=== PATIENT | male | born 1935 | race Caucasian/White ===

== ENCOUNTER 2024-12-19 13:35 | Inpatient (IN) | payer MEDICARE, OTHER, SELFPAY ==
[2024-12-19] VITALS (23 sets, daily range): BP systolic 99–132; BP diastolic 58–112
--- NOTE | 2024-12-19 09:17 | ED.GENMED ---
History of Present Illness
<Syed Rain Jr., PA-C - Last Filed: 12/19/24 13:12>
General
Chief Complaint: Breathing Problem
Source: patient, ambulance crew and [facility]
Exam Limitations: none
Time Seen by Provider: 12/19/24 08:58
Nursing documentation reviewed up to this point in time: agreed with
History of Present Illness
History of Present Illness:
89-year-old male with past with history of COPD, previous PE not anticoagulated, CHF hypertension pacemaker presenting to the emergency department today with concerns of shortness of breath starting last night also has a cough denies fevers denies
additional symptoms otherwise no chest pain abdominal pain nausea vomiting.
Past History
<Syed Rain Jr., PA-C - Last Filed: 12/19/24 13:12>
Past History
ED Past Medical History: CHF, COPD, HTN and Other (DVT/PE, CAD, heart failure, hypertension, hyperlipidemia)
ED Past Surgical History: Cardiac
Social History
Tobacco: Former smoker
Alcohol: None
Drug: None
Living: fpc
Family History
Family History: Unable to obtain
Review of Systems
<Syed Rain Jr., PA-C - Last Filed: 12/19/24 13:12>
Review of Systems
Allergies reviewed?: Yes
All Other Systems: ROS reviewed and negative except as documented in HPI and ROS
Phy Exam
<YAHIR Antonio Jr. Last Filed: 12/19/24 13:12>
Physical Exam
Physical Exam:
GENERAL: Alert , in no apparent distress
EYE: pupils equal and reactive
NECK: Supple, no significant adenopathy.
ENT: o/p clr, mmm.
CARDIAC: Regular rate and rhythm .
LUNGS: diffuse expiratory wheezing.
ABDOMEN: Soft, without focal tenderness, no r/g, no cvat
NEUROLOGICAL: Alert and oriented, no focal neuro deficits
SKIN: Warm and dry, skin intact.
MUSCULOSKELETAL: No edema, well perfused.
PSYCH: Normal and appropriate interaction.
Scores
<Syed Rain Jr., PA-C - Last Filed: 12/19/24 13:12>
Heart Failure Risk
Heart Failure Risk Score: Not Applicable
Course
<Syed Rain Jr., PA-C - Last Filed: 12/19/24 13:12>
Orders/Labs/Results
Orders:
Orders
12/19/24 08:59
Electrocardiogram (*1) Stat
Reason for Study: Other
Other Reason for Exam: pneumonia
Cardiac Monitoring- Treatment ONCE
EKG- Treatment ONCE
Dexamethasone Sod Phosphate [Decadron] 10 mg IV NOW STA
Ipratropium/Albuterol Sulfate [Duoneb] 3 ml INH R NOW STA
CR Chest Portable - 1 View Urgent
Comment:
Reason For Exam: cough sob
Reason Study Needs to be Portable: Patient Unstable
12/19/24 09:24
CT Chest PE Study Urgent
Comment:
Reason For Exam: SOB, hypoxic
12/19/24 09:26
Complete Blood Count/With Diff Urgent
NT-proBNP Urgent
Troponin I Urgent
12/19/24 09:37
Azithromycin 500 mg/250 ml [Zithromax Infusion] 500 mg in 250 ml IV NOW
CefTRIAXone [Rocephin] 2,000 mg IV NOW STA
12/19/24 09:48
COVID-19 Antigen Urgent
Source: Nasal Swab
Influenza A+B Rapid Molecular Urgent
JELENA Source: Nasal Swab
Specimen Description:
12/19/24 10:27
Comprehensive Metabolic Panel Routine
12/19/24 10:45
Case Management Consult ONCE
Case Management Consult: Other
Requested By:: NURSING
Comment: Per EMS and patient's roomate, pt. has been SOB since last night and could not find a nurse to
inform them. PT. had to suffer all night. Came to the ER today hypoxic, SOB. Was dx with
pneumonia and CHF. Is currently on high flow.
12/19/24 12:07
Heparin 6,900 units IV NOW STA
Nursing to Place Non Medication Order As Directed
Physician Order: PTT 6 hours after initial start of Heparin infusion
12/19/24 12:10
Echo 2D MMode Color/Doppler Urgent
Reason for Study: large PE
PTT Urgent
Comment: Obtain baseline before beginning heparin infusion if not already collected
12/19/24 12:15
Heparin 92737 Units/250 ml 25,000 units in 250 ml IV PER PROTOCOL
Weight to be used for heparin protocol in kilograms (kg):: 86.7
Protocol:: DVT/PE
PTT Goal Range to be used:: PTT 73 to 111 seconds
Order type:: Initial
INITIAL Infusion Dose (UNITS/KG/hr) & then follow protocol:: 18 units/kg/hr
Infusion Dose in UNITS/hr & then follow protocol (UNITS/hr):: 1,600
INFUSION RATE in mL/hr & then follow protocol (mL/hr):: 16
For DVT/PE algorithm, re-bolus for low PTT?: Yes
PTT less than or equal to 64 seconds:: Re-bolus 80 units/kg (max 10,000units). Increase by 300 units/hr
(+ 3mL/hr)
PTT 64.1 to 72.9 seconds:: Re-bolus 40 units/kg (max 5,000 units). Increase by 200 units/hr
(+ 2mL/hr)
PTT 73 to 111 seconds:: Target Range. No change in rate.
PTT 111.1 to 130.9 seconds:: Decrease rate by 200 units/hr (- 2 mL/hr)
PTT 131 to 199.9 seconds:: HOLD for 1 hr. Then decrease by 300 units/hr (- 3mL/hr)
PTT greater than or equal to 200 seconds:: HOLD for 2 hrs & Notify Provider. Then decrease by 300 units/hr
(- 3mL/hr)
Lab follow-up:: Each change, PTT q6h until 2 consecutive are therapeutic. Then
PTT daily.
12/19/24 12:16
Heparin 6,900 units IV PRN PRN
12/19/24 12:17
Heparin 3,500 units IV PRN PRN
Abnormal Lab Results
12/19/24 12/19/24
09:26 10:27
RBC 4.59 L 10^6/uL
(4.70-6.10)
MCHC 32.3 L g/dL
(33.0-37.0)
Abs Immat Gran (auto) 0.1 H 10^3/uL
(0-0.05)
Absolute Neuts (auto) 7.2 H 10^3/uL
(1.4-6.5)
Absolute Lymphs (auto) 0.6 L 10^3/uL
(1.2-3.4)
Absolute Monos (auto) 1.2 H 10^3/uL
(0.1-0.6)
Immature Gran % 0.6 H %
(0-0.5)
Neutrophils % 79.1 H %
(42.2-75.2)
Lymphocytes % 6.5 L %
(20.5-51.1)
Monocytes % 13.0 H %
(1.7-9.3)
Potassium 5.2 H mmol/L
(3.5-5.1)
Carbon Dioxide 19 L mmol/L
(22-30)
BUN 26 H mg/dl
(9-20)
Glucose 127 H mg/dl
(70-99)
Calcium 7.9 L mg/dl
(8.4-10.2)
Troponin I 0.061 H* ng/ml
Total Protein 6.1 L g/dl
(6.3-8.2)
Albumin 3.1 L g/dl
(3.5-5.0)
12/19/24 09:26
12/19/24 10:27
Vital Signs
Initial and Last Documented VS:
Initial Vital Signs
Pulse Resp Pulse Ox
76 24 82
12/19/24 09:02 12/19/24 09:02 12/19/24 09:02
Last Documented Vital Signs
Temp Pulse Resp BP Pulse Ox
98.0 F 86 23 105/58 89
12/19/24 09:17 12/19/24 12:00 12/19/24 12:00 12/19/24 12:00 12/19/24 12:00
<Kemal Reyes, DO - Last Filed: 12/19/24 09:26>
Orders/Labs/Results
Orders:
Orders
12/19/24 08:59
Electrocardiogram (*1) Stat
Reason for Study: Other
Other Reason for Exam: pneumonia
Cardiac Monitoring- Treatment ONCE
EKG- Treatment ONCE
Dexamethasone Sod Phosphate [Decadron] 10 mg IV NOW STA
Ipratropium/Albuterol Sulfate [Duoneb] 3 ml INH R NOW STA
CR Chest Portable - 1 View Urgent
Comment:
Reason For Exam: cough sob
Reason Study Needs to be Portable: Patient Unstable
12/19/24 09:24
CT Chest PE Study Urgent
Comment:
Reason For Exam: SOB, hypoxic
12/19/24 09:26
Complete Blood Count/With Diff Urgent
NT-proBNP Urgent
Troponin I Urgent
12/19/24 09:37
Azithromycin 500 mg/250 ml [Zithromax Infusion] 500 mg in 250 ml IV NOW
CefTRIAXone [Rocephin] 2,000 mg IV NOW STA
12/19/24 09:48
COVID-19 Antigen Urgent
Source: Nasal Swab
Influenza A+B Rapid Molecular Urgent
JELENA Source: Nasal Swab
Specimen Description:
12/19/24 10:27
Comprehensive Metabolic Panel Routine
12/19/24 10:45
Case Management Consult ONCE
Case Management Consult: Other
Requested By:: NURSING
Comment: Per EMS and patient's roomate, pt. has been SOB since last night and could not find a nurse to
inform them. PT. had to suffer all night. Came to the ER today hypoxic, SOB. Was dx with
pneumonia and CHF. Is currently on high flow.
12/19/24 12:07
Heparin 6,900 units IV NOW STA
Nursing to Place Non Medication Order As Directed
Physician Order: PTT 6 hours after initial start of Heparin infusion
12/19/24 12:10
Echo 2D MMode Color/Doppler Urgent
Reason for Study: large PE
PTT Urgent
Comment: Obtain baseline before beginning heparin infusion if not already collected
12/19/24 12:15
Heparin 11380 Units/250 ml 25,000 units in 250 ml IV PER PROTOCOL
Weight to be used for heparin protocol in kilograms (kg):: 86.7
Protocol:: DVT/PE
PTT Goal Range to be used:: PTT 73 to 111 seconds
Order type:: Initial
INITIAL Infusion Dose (UNITS/KG/hr) & then follow protocol:: 18 units/kg/hr
Infusion Dose in UNITS/hr & then follow protocol (UNITS/hr):: 1,600
INFUSION RATE in mL/hr & then follow protocol (mL/hr):: 16
For DVT/PE algorithm, re-bolus for low PTT?: Yes
PTT less than or equal to 64 seconds:: Re-bolus 80 units/kg (max 10,000units). Increase by 300 units/hr
(+ 3mL/hr)
PTT 64.1 to 72.9 seconds:: Re-bolus 40 units/kg (max 5,000 units). Increase by 200 units/hr
(+ 2mL/hr)
PTT 73 to 111 seconds:: Target Range. No change in rate.
PTT 111.1 to 130.9 seconds:: Decrease rate by 200 units/hr (- 2 mL/hr)
PTT 131 to 199.9 seconds:: HOLD for 1 hr. Then decrease by 300 units/hr (- 3mL/hr)
PTT greater than or equal to 200 seconds:: HOLD for 2 hrs & Notify Provider. Then decrease by 300 units/hr
(- 3mL/hr)
Lab follow-up:: Each change, PTT q6h until 2 consecutive are therapeutic. Then
PTT daily.
12/19/24 12:16
Heparin 6,900 units IV PRN PRN
12/19/24 12:17
Heparin 3,500 units IV PRN PRN
Abnormal Lab Results
12/19/24 12/19/24
09:26 10:27
RBC 4.59 L 10^6/uL
(4.70-6.10)
MCHC 32.3 L g/dL
(33.0-37.0)
Abs Immat Gran (auto) 0.1 H 10^3/uL
(0-0.05)
Absolute Neuts (auto) 7.2 H 10^3/uL
(1.4-6.5)
Absolute Lymphs (auto) 0.6 L 10^3/uL
(1.2-3.4)
Absolute Monos (auto) 1.2 H 10^3/uL
(0.1-0.6)
Immature Gran % 0.6 H %
(0-0.5)
Neutrophils % 79.1 H %
(42.2-75.2)
Lymphocytes % 6.5 L %
(20.5-51.1)
Monocytes % 13.0 H %
(1.7-9.3)
Potassium 5.2 H mmol/L
(3.5-5.1)
Carbon Dioxide 19 L mmol/L
(22-30)
BUN 26 H mg/dl
(9-20)
Glucose 127 H mg/dl
(70-99)
Calcium 7.9 L mg/dl
(8.4-10.2)
Troponin I 0.061 H* ng/ml
Total Protein 6.1 L g/dl
(6.3-8.2)
Albumin 3.1 L g/dl
(3.5-5.0)
12/19/24 09:26
12/19/24 10:27
Vital Signs
Initial and Last Documented VS:
Initial Vital Signs
Pulse Resp Pulse Ox
76 24 82
12/19/24 09:02 12/19/24 09:02 12/19/24 09:02
Last Documented Vital Signs
Temp Pulse Resp BP Pulse Ox
98.0 F 86 23 105/58 89
12/19/24 09:17 12/19/24 12:00 12/19/24 12:00 12/19/24 12:00 12/19/24 12:00
<Syed Rain Jr., PA-C - Last Filed: 12/19/24 13:12>
MDM/Problems Addressed
MDM/Problems Addressed:
89-year-old male presenting to the emergency department today with concerns of shortness of breath starting last night. Does have diffuse expiratory wheezing here seems to be consistent with COPD. Initially was hypoxic on arrival but improving
with nonrebreather. Patient's pulse ox dropping to the mid 80s on nonrebreather. He was placed on high flow nasal cannula with improvement to the high 80s. Patient conversational throughout. Other vital signs without emergent findings. KG
without significant change. Troponin mildly elevated to 0.061. BNP elevated 6000. Does have a history of PE not currently anticoagulated. CT PE was ordered. Otherwise x-ray showing possible consolidation possible pneumonia was given antibiotic.
CT PE showing bilateral blood clots. PERT alert was called immediately and discussed with IR and pulmonary. Patient started on heparin and will be admitted to the ICU.
<Kemal Reyes DO - Last Filed: 12/19/24 09:26>
*Critical Care Note
Total Time (30-74mins, 75-104mins- exclusive of procedures): 33 min
comment:
The high probability of a clinically significant, sudden or life threatening deterioration of the cardiopulmonary system(s) required my full and direct attention, intervention and personal management. The aggregate critical care time was 33 minutes.
This time is in addition to time spent performing reported procedures but includes the following:
[x] Data Review and interpretation
[x] Patient assessment and monitoring of vital signs
[x] Documentation
[x] Medication orders and management
ED Attending Note
<Syed Rain Jr., PA-C - Last Filed: 12/19/24 13:12>
-
Portions of this chart may have been created with voice recognition software.� Occasional wrong word or��sound alike� substitutions may have occurred due to the inherent limitations of voice recognition software.
<Kemal Reyes DO - Last Filed: 12/19/24 09:26>
ED Attending Note
Patient seen and examined by attending physician: Yes
I performed the substantive portion of visit, reviewed & personally made and approve the management plan that is documented in note by myself or LEAH.: Yes
ED Attending Note:
I have seen and evaluated the patient with a [id number] encounter. I have spoken to the advance practicer provider and involved in the medical history, the physical exam, medical decision making.
Evaluation and management service: agree unless noted differently below.
Results interpretation: agree unless noted differently below.
Focused HPI: 89-year-old male presenting with shortness of breath. Apparently, the symptoms started yesterday. Patient initially presented hypoxic and was placed on a nonrebreather. Initially, the hypoxia appeared to improve but I was called to
bedside when patient was persistently 80% on a nonrebreather.
Physical exam: Tachypnea, shallow breath sounds. Skin is warm and cap refill intact. Patient has conversational dyspnea. Shallow breath sounds
Medical Decision Making: Patient started on breathing treatments and steroids given his prior history of COPD. Given his significant hypoxia, will obtain CT to rule out PE. Will give trial of BiPAP due to his hypoxia on nonrebreather
Discharge Plan
Departure
Patient Disposition: Admit
Date of Disposition: 12/19/24
Time of Disposition: 12:37
Admit to: ICU
Admit to doctor: Jonny
Presentation/result/management discussed w/ accepting MD/DO: Hospitalist
Patient with high blood pressure during this ER visit?: No
Condition: Critical
Covid-19: Not Applicable
Discharge Problem:
Pulmonary embolism
Prescriptions:
No Action
acetaminophen 325 mg Tablet
650 mg PO Q8HPRN PRN (Reason: mild pain)
atorvastatin 20 mg Tablet
20 mg PO DAILY
isosorbide mononitrate 30 mg Tablet Extended Release 24 Hr
30 mg PO DAILY
amlodipine 2.5 mg Tablet
2.5 mg PO DAILY
metoprolol succinate 25 mg Tablet Extended Release 24 Hr
25 mg PO DAILY
albuterol sulfate [ProAir HFA] 90 mcg/actuation Hfa Aerosol Inhaler
2 puff INHALATION R Q4
Anoro Ellipta 62.5-25 mcg/actuation Blister With Device
1 inh INHALATION R DAILY
gabapentin 100 mg Capsule
200 mg PO TID
melatonin 3 mg Tablet
6 mg PO HS
multivitamin Tablet
1 tab PO DAILY
ipratropium-albuterol 0.5 mg-3 mg(2.5 mg base)/3 mL Solution For Nebulization
3 ml INHALATION R Q6HPRN PRN (Reason: copd)
sertraline 25 mg Tablet
25 mg PO DAILY
ondansetron HCl 4 mg Tablet
4 mg PO Q6H PRN (Reason: NAUSEA )
dicyclomine 20 mg tablet
20 mg PO TID
diclofenac sodium 1 % Gel
2 g TOPICAL BID
omega 7-mzc-vvy-fish oil [Fish Oil] 1,000 mg (120 mg-180 mg) Capsule
1 cap PO DAILY
tramadol 50 mg tablet
50 mg PO BIDPRN PRN (Reason: moderate severe pain)
Referrals:
Frederick Brown MD [Family Provider] -
Interventions
Interventions:
*Risk Screen - Suicide Last Done: 12/19/24 09:17
*General Assessment Last Done: 12/19/24 09:17
*Neglect/Abuse Screening Last Done: 12/19/24 09:17
*ED COVID-19 Vaccine History Last Done: 12/19/24 09:17
ED- Cardiac Assessment Last Done: 12/19/24 09:17
ED- Pulmonary Assessment Last Done: 12/19/24 09:17
Discharge Date and Time
Print Language: TURKISH
[2024-12-19 09:35] LABS: % Basophils 0.6 % (0-2); % Eosinophils 0.2 % (0-6); % Immature Granulocytes 0.6 % (0-0.5); % Lymphocytes 6.5 % (20.5-51.1); % Neutrophils 79.1 % (42.2-75.2); Absolute Basophils 0.1 10^3/uL (0-0.2); Absolute Immature Granulocytes 0.1 10^3/uL (0-0.05); Absolute Lymphocytes 0.6 10^3/uL (1.2-3.4); Absolute Monocytes 1.2 10^3/uL (0.1-0.6); Absolute Neutrophils 7.2 10^3/uL (1.4-6.5); Hematocrit 41.8 % (39.0-52.0); Hemoglobin 13.5 g/dL (13.0-18.0); Mean Corp Hgb Conc. 32.3 g/dL (33.0-37.0); Mean Corpuscular Hgb 29.4 pg (27.0-31.0); Mean Corpuscular Volume 91.1 fL (80.0-94.0); Mean Platelet Volume 10.3 fL (7.4-10.4); Nucleated Red Blood Cells % 0 % (-); Platelet Count 215 10^3/uL (130-400); Red Blood Cell Count 4.59 10^6/uL (4.70-6.10); Red Cell Dist. Width 13.9 % (11.5-14.5); White Blood Cell Count 9.1 10^3/uL (4.8-10.8)
[2024-12-19] MEDS: DECADRON 10 MG IV (09:40)
[2024-12-19] MEDS: ROCEPHIN 2000 MG IV (09:41)
[2024-12-19] MEDS: ZITHROMAX INFUSION 250 IV (09:41)
[2024-12-19] MEDS: DUONEB 3 ML INH ×2 (09:41→19:48)
[2024-12-19 10:02] LABS: NT-proBNP 6480 pg/ml; Troponin I 0.061 ng/ml
[2024-12-19 10:18] LABS: COVID-19 Antigen Negative (Negative)
[2024-12-19 11:14] LABS: ALT (SGPT) 25 U/L (0-50); AST (SGOT) 39 U/L (17-59); Albumin 3.1 g/dl (3.5-5.0); Alkaline Phosphatase 81 U/L (38-126); Blood Urea Nitrogen 26 mg/dl (9-20); Calcium 7.9 mg/dl (8.4-10.2); Carbon Dioxide 19 mmol/L (22-30); Chloride 106 mmol/L (98-107); Glucose 127 mg/dl (70-99); Potassium 5.2 mmol/L (3.5-5.1); Sodium 137 mmol/L (135-145); Total Protein 6.1 g/dl (6.3-8.2); eGFR > 60.00
[2024-12-19] MEDS: HEPARIN 6900 UNITS IV (12:19)
[2024-12-19] MEDS: HEPARIN 25000 UNITS/250 ML IV (12:19)
[2024-12-19 12:43] LABS: APTT 32.9 Sec (23.4-35.0)
--- NOTE | 2024-12-19 12:50 | HPS.HSE ---
Family Physician
-
Family Physician: Frederick Brown
Chief Complaint
-
Shortness of breath x 3 days, productive clear cough, body aches, hypoxia today
History of Present Illness
89-year-old male from senior living who states he has had shortness of breath over the past 3 days including a productive clear cough and some bodyaches. He presented severely hypoxic with O2 sat 81% on room air required high flow O2. He had
history of previous Left lower extremity DVT with bilateral PE 10/05/2022. He had CT PE study today due to hypoxia showing bilateral pulmonary embolism with suspected right heart strain on CT he was placed on IV heparin drip He was COVID and flu
negative while in the ER today. He denies headache, sore throat, chest pain, palpitations, abdominal pain, nausea, vomiting, diarrhea. He does complain of some chronic suprapubic tenderness but history of BPH with urine retention.
He has past medical history of dementia�mild-moderate COPD, chronic hypoxic respiratory failure on chronic 2 to 3 L baseline, aspiration pneumonitis, chronic heart failure preserved EF, HTN, HLD, CAD status post stent, permanent pacemaker,
extensive left lower extremity DVT /Bilateral PE10/05/2022 left greater saphenous vein common femoral vein, superficial femoral vein, popliteal vein, peroneal vein, posterior tibial vein. Nonocclusive in the groin or common femoral vein, occlusive
in the thigh and to the including the calf. Left iliac vein thrombus nonocclusive, indeterminant troponin elevation, dysphagia due to poor dentition, BPH, fatty liver, large hiatal hernia, peripheral neuropathy, anxiety, insomnia
Medical History
Past Medical History
Past Medical History: Reports Other
Additional Past Medical History:
dementia�mild-moderate COPD,
chronic hypoxic respiratory failure on chronic 2 to 3 L baseline, aspiration pneumonitis,
chronic diastolic heart failure preserved EF
HTN
HLD
CAD status post sten
permanent pacemaker
extensive left lower extremity DVT /Bilateral PE 10/05/2022 left greater saphenous vein common femoral vein, superficial femoral vein, popliteal vein, peroneal vein, posterior tibial vein.
Nonocclusive in the groin or common femoral vein, occlusive in the thigh and to the including the calf.
Left iliac vein thrombus nonocclusive, indeterminant troponin elevation, dysphagia due to poor dentition,
BPH
fatty liver
large hiatal hernia
peripheral neuropathy
anxiety
insomnia
Past Surgical History: Reports Other
Additional Past Surgical History:
Permanent pacemaker
caht wwith stents
Social History
Unable to obtain full social history at this time due to: Dementia
Tobacco: Former Smoker
Alcohol: None
Drug: None
Personal: Single
Living: Jail
Employment: Retired
Family History
Family History: Not pertinent
Allergies / Home Medications
Allergies reflects when Allergies were last updated in appbackr.
Home Medications with original date entered in appbackr
Allergy/Medication List:
Allergies
Allergy/AdvReac Type Severity Reaction Status Date / Time
No Known Allergies Allergy Verified 02/09/23 09:11
Home Medications
acetaminophen 325 mg tablet 650 mg PO Q8HPRN PRN mild pain 06/17/22
albuterol sulfate 90 mcg/actuation aerosol inhaler (ProAir HFA) 2 puff inhalation R Q4 Lung/breathing issues 06/17/22
amlodipine 2.5 mg tablet 2.5 mg PO DAILY Blood pressure 06/17/22
atorvastatin 20 mg tablet 20 mg PO DAILY High cholesterol 06/17/22
gabapentin 100 mg capsule 200 mg PO TID Pain 06/17/22
isosorbide mononitrate 30 mg tablet,extended release 24 hr 30 mg PO DAILY Heart disease/condition 06/17/22
metoprolol succinate 25 mg tablet,extended release 24 hr 25 mg PO DAILY Blood pressure 06/17/22
umeclidinium 62.5 mcg-vilanterol 25 mcg/actuation powdr for inhalation (Anoro Ellipta) 1 inh inhalation R DAILY Lung/breathing issues 06/17/22
melatonin 3 mg tablet 6 mg PO HS Sleep 07/22/22
ipratropium 0.5 mg-albuterol 3 mg (2.5 mg base)/3 mL nebulization soln 3 ml inhalation R Q6HPRN PRN copd 10/05/22
multivitamin 1 tab PO DAILY Supplement 10/05/22
sertraline 25 mg tablet 25 mg PO DAILY 10/05/22
diclofenac sodium 1 % topical gel 2 g topical BID LEFT KNEE, RIGHT SHOULDER 02/09/23
dicyclomine 20 mg tablet 20 mg PO TID Muscle spasms 02/09/23
omega 2-mjw-pxe-fish oil 1,000 mg (120 mg-180 mg) capsule (Fish Oil) 1 cap PO DAILY Supplement 02/09/23
ondansetron HCl 4 mg tablet 4 mg PO Q6H PRN NAUSEA 02/09/23
tramadol 50 mg tablet 50 mg PO BIDPRN PRN moderate severe pain 12/19/24
Review of Systems
-
History Source: Patient, Jail and Physician
A 12 point ROS was completed and negative except as noted: Yes
Constitutional: Denies Fever or Chills
EENT: Denies Runny Nose
Respiratory: Reports Cough, Trouble Breathing and Other (hypoxia)
Cardiac: Denies Chest Pain, Diaphoresis, Palpitations or Syncope
Abdomen/GI: Denies Abdominal Pain, Nausea, Vomiting, Diarrhea, Constipated, Bloody Stools or Black Stools
: Denies Dysuria, Frequency, Flank Pain, Incontinence, Difficulty Voiding or Urgency
Musculoskeletal: Denies Joint Pain or Edema
Skin: Denies Itching or Rash
Neurological: Denies Dizzy, Headache or Weakness
Endocrine: Reports No Symptoms
Psych: Reports Calm
Physical Exam
Vital Signs
Vital Signs
Temp Pulse Resp BP Pulse Ox
98.0 F 86 23 105/58 89
12/19/24 09:17 12/19/24 12:00 12/19/24 12:00 12/19/24 12:00 12/19/24 12:00
Physical Exam
General: Comfortable and Conversant; No Pain or Fever
HEENT: NormoCephalic, Anicteric, Moist mucous membranes and Oxygen (high flow nc)
Respiratory: Wheezes (ep bilat ) and Rhonchi (RLL )
Cardiac: S1/S2, Regular Rhythm and JVD; No Murmur, Rub, Gallop or Peripheral Edema
Breast: Deferred by me
GI: Soft, Non Distended, Normal Bowel Sounds, Tender (Suprapubic) and No Hepatosplenomegaly
Rectal: Deferred by Provider
Genito-urinary: Deferred by me
Musculoskeletal: No Clubbing, No Cyanosis and No Edema
Skin: Warm and Dry; No Rash
Neuro: AO x 3 (Patient is oriented to first and last name, president, place, senior living, some of history), No Motor Deficits (While in bed ), Nonfocal/grossly intact, Cranial Nerves Intact and Other (kaibab); No Slurred Speech, Facial Droop or Tremors
Psych: Calm
Laboratory Results
-
12/19/24 09:26
12/19/24 10:27
Laboratory Results
Total Bilirubin 1.0 mg/dl (0.2-1.3) 12/19/24 10:27
AST 39 U/L (17-59) 12/19/24 10:27
ALT 25 U/L (0-50) 12/19/24 10:27
Alkaline Phosphatase 81 U/L (38-126) 12/19/24 10:27
Troponin I 0.061 ng/ml H* 12/19/24 09:26
Data Reviewed
-
CT Scan: Report Reviewed by me
Lab Data: Labs Reviewed by me
Impression/Plan
-
Impression/plan:
Admit to ICU
#Extensive bilateral PE suspected right heart strain o CT
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
-Check 2D echo
-Consult Pulmonary
-Consult IR
-Venous doppler bilat legs
-IV heparin bolus with drip
CT PE study
1. Extensive bilateral pulmonary emboli as described. Suggestion of right heart strain.
2. 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
3. Small left and trace right pleural effusions with associated compressive atelectasis.
#Hypotension/HTN/benign
BP 105/58
-Hold isosorbide 30 mg daily, metoprolol succinate 25 mg daily
#Acute on Chronic heart failure history preserved EF
I/O,, daily weight
-No diuretics listed
-BNP 6300 Patient peers mildly overloaded
- IV lasix 20 mg now once
#Hx of lower extremity DVT/PE 10/05/2022
-This was treated with Eliquis Unsure when Eliquis was stopped
CT PE study: 10/05/2022: Severe bilateral PE
several filling defects in the pulmonary arteries consistent with pulmonary emboli
These supply the left upper lobe, lingula, left lower lobe and right middle lobe. These are segmental and subsegmental.
There is no evidence of right heart strain.
Ultrasound left lower extremity: 10/05/2022
Extensive thrombus formation in the left greater saphenous vein, common femoral vein, superficial femoral vein, popliteal vein,
peroneal vein and posterior tibial vein. nonocclusive in the groin or common femoral vein. This is occlusive in the thigh and to and including
the calf
The left iliac vein contains thrombus which is nonocclusive. The mid and distal IVC could not be seen due to overlying bowel gas.
The proximal IVC is within normal limits.
The right common femoral vein is clear.
#Type II LA secondary to PE
#Hx troponin elevation January 2023 with peak 0.062
Troponin 0.061 will trend
-Consult
EKG: Atrial sensed ventricular paced rhythm 95 bpm
#COPD mild/m�no acute exacerbation
#Chronic hypoxic respiratory failure on chronic 2 to 3 L baseline
cont enoro elipta
#Dementia�mild/mod
-Patient oriented to name, place, knows he lives at a senior living with roommates, president, year
#CAD s/p stent
-cont Lipitor 20 mg hs HOLD BB due to hypotension
#Pacemaker hx
#HLD
cont cont Lipitor 20 mg hs
#Chronic Neuropathy
- cont gabapentin , Tramadol prn mod pain
# Gastric Muscle spasms
cont dicylomine 20 mg tid
#BPH
Monitor I/o
-Bladder scan protocol
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
OTHER PMH:
aspiration pneumonitis
Fatty liver
Hiatal hernia
Dysphagia due to poor dentition
Dvt proph
- IV heparin gtt
Full code per Pt
--- NOTE | 2024-12-19 13:13 | W.PN.UPDATE ---
Addendum entered and electronically signed by Idalia Fuller MD 12/19/24 13:21:
Cardiology consulted.
Original Note:
Update Note
Progress Note Update
This is an addendum to the H&P written by Laura Gomez on 12/19/2024. Patient seen and examined independently with GLOBAL PROJECT MANAGER.
89-year-old male past medical history of dementia, mild to moderate COPD 2 L baseline, chronic hypoxemic respiratory failure on 2 to 3 L baseline, aspiration pneumonitis, chronic heart failure preserved EF, hypertension, hyperlipidemia, CAD status
post and, permanent pacemaker, extensive lower extremity DVT in September 2022/PE, presenting with shortness of breath and cough and bodyaches.
Patient hemodynamically stable with systolic blood pressure 100s but hypoxemic requiring high flow oxygen.
CT chest shows extensive bilateral pulmonary emboli, suggestion of right heart strain.
Labs show BNP of 6400. Troponin of 0.06. EKG shows atrial paced, ventricular paced rhythm. COVID and influenza negative.
Patient with acute hypoxia versus failure secondary to pulmonary embolism with right heart strain and right heart failure.
Heparin drip started. Pulmonary, IR consulted. Heparin drip. Check venous ultrasound, trend troponins, echocardiogram. Give 20 of IV Lasix.
--- NOTE | 2024-12-19 14:07 | CARDSERVLU ---
Echocardiogram with Lumason completed after protocol screening completed. Allergies verified.
Patent IV site: _existing 22 LFA____
IV site flushed with 0.9% NaCl pre and post administration.
Diluted bolus method utilized to enhance visualization of ventricular lee.
Total volume given: __6.0__ mL in divided doses.
Patient tolerated all procedures well without complications.
--- NOTE | 2024-12-19 14:16 | CON.CAR ---
Addendum entered and electronically signed by Riddhi Knox MD 12/19/24 16:56:
I saw and examined the patient.
The Ehs Manager's note was reviewed and I agree with the note.
Comment: Briefly, Mr. Wylie is a 89-year-old gentleman with past medical history of hypertension, hyperlipidemia, COPD, dementia, chronic neuropathy, anxiety/depression, coronary artery disease status post TX with PCI x 2 in 2006 at [facility]
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
noted on CT scan in September 2022, previously on Eliquis, discontinued in October 2024 who now presents with progressively worsening shortness of breath over the last 3 days found to be hypoxic on presentation with CT angiogram of chest showing
large bilateral pulmonary emboli with evidence of RV strain by CT. Initial troponin I elevated at 0.061. Patient is a very poor historian and unable to provide any further history.
Vital signs and lab work reviewed. EKG shows a sensed V paced rhythm. On exam patient is on high fluid oxygen, satting 91 to 92%, somnolent but arousable, no acute distress, not tachypneic, regular rate, normal S1 and S2, 2 out of 6 systolic
ejection murmur loudest at the right upper sternal border, abdomen soft, nontender, nondistended with active bowel sounds, decreased breath sounds at bilateral bases, elevated JVD, warm extremities
Echocardiogram images reviewed by myself. Images are very technically limited with underlying atrial fibrillation with likely mildly reduced to low normal left ventricular systolic function. RV in some views appears mildly dilated with mildly
reduced function.
Recommendations:
1. Pulmonary and IR also consulted to discuss role for possible percutaneous intervention in the setting of large bilateral PEs however currently patient is hemodynamically stable, not tachycardic but does have a significant oxygen requirement with
evidence of RV strain. In the interim agree with IV heparin. Once final decision is made in regards to no acute interventions, would consider full anticoagulation with oral anticoagulant.
2. Wean oxygen as tolerated.
3. Otherwise, continue supportive care.
4. Patient is currently critically ill.
Riddhi Knox MD, [facility], [facility]
Original Note:
Consultation
Consultation Request
Date/Time Consultation Performed: 12/19/24
Requesting Provider: Dr. Fuller
Performing Provider: Sissy Pineda PA-C for Dr. Lenz
Reason for Consultation: R heart strain by chest CT, elevated troponin
Medical History
-
Chief Complaint: SOB, hypoxia
History of Present Illness:
Patient is an 89 yo M resident of [facility] with PMH of CAD with TX in 2006 with PCI x2 at [facility] further details unknown, HTN, HLD, COPD, chronic hypoxic respiratory failure on 2-3L NC at baseline, alternating BBB s/p Biotronik DC PPM 2021. He
has history of DVT/PE diagnosed 09/2022 post L hip replacement 05/2022 and was started on eliquis. As of 04/2023 he was still on eliquis 5mg BID by [facility]. Appears his eliquis was stopped 10/2024. He reports worsening SOB over the last 3
days with hypoxia and found to have large B/L PE with evidence of R heart strain by CT. Trop 0.061. Patient is a poor historian. Cardiology consulted for evaluation. He is followed by [facility] as OP.
PMH:
History of DVT/PE 09/2022, previously on eliquis, appears stopped 10/2024
History of L hip fracture s/p repair 04/2022
CAD with TX s/p PCI x2 2006 at [facility], details unknown
alternating BBB s/p Biotronik DC PPM 2021
HTN
HLD
COPD
Dementia
Chronic neuropathy
Anxiety/depression
Past Medical History
Past Medical History: Other (in HPI)
Social History
Tobacco: Former Smoker
Living: Detention ([facility])
Employment: Retired
Family History
Family History: Unable to Obtain
Allergies / Home Medications
Allergy/AdvReac Type Severity Reaction Status Date / Time
No Known Allergies Allergy Verified 02/09/23 09:11
�Medication �Instructions �Recorded �Confirmed �Type
acetaminophen 325 mg tablet 650 mg PO Q8HPRN PRN mild pain 06/17/22 12/19/24 History
albuterol sulfate 90 mcg/actuation 2 puff inhalation R Q4 06/17/22 12/19/24 History
aerosol inhaler (ProAir HFA) Lung/breathing issues
amlodipine 2.5 mg tablet 2.5 mg PO DAILY Blood pressure 06/17/22 12/19/24 History
atorvastatin 20 mg tablet 20 mg PO DAILY High cholesterol 06/17/22 12/19/24 History
gabapentin 100 mg capsule 200 mg PO TID Pain 06/17/22 12/19/24 History
isosorbide mononitrate 30 mg 30 mg PO DAILY Heart 06/17/22 12/19/24 History
tablet,extended release 24 hr disease/condition
metoprolol succinate 25 mg 25 mg PO DAILY Blood pressure 06/17/22 12/19/24 History
tablet,extended release 24 hr
umeclidinium 62.5 mcg-vilanterol 1 inh inhalation R DAILY 06/17/22 12/19/24 History
25 mcg/actuation powdr for Lung/breathing issues
inhalation (Anoro Ellipta)
melatonin 3 mg tablet 6 mg PO HS Sleep 07/22/22 12/19/24 History
ipratropium 0.5 mg-albuterol 3 mg 3 ml inhalation R Q6HPRN PRN copd 10/05/22 12/19/24 History
(2.5 mg base)/3 mL nebulization
soln
multivitamin 1 tab PO DAILY Supplement 10/05/22 12/19/24 History
sertraline 25 mg tablet 25 mg PO DAILY 10/05/22 12/19/24 History
diclofenac sodium 1 % topical gel 2 g topical BID LEFT KNEE, RIGHT 02/09/23 12/19/24 History
SHOULDER
dicyclomine 20 mg tablet 20 mg PO TID Muscle spasms 02/09/23 12/19/24 History
omega 7-efa-ggq-fish oil 1,000 mg 1 cap PO DAILY Supplement 02/09/23 12/19/24 History
(120 mg-180 mg) capsule (Fish Oil)
ondansetron HCl 4 mg tablet 4 mg PO Q6H PRN NAUSEA 02/09/23 12/19/24 History
tramadol 50 mg tablet 50 mg PO BIDPRN PRN moderate 12/19/24 12/19/24 History
severe pain
Review of Systems
-
History Source: Patient
All other systems: Negative unless noted
Physical Exam
Vital Signs
Temp Pulse Resp BP Pulse Ox
98.0 F 86 23 127/84 92
12/19/24 09:17 12/19/24 13:30 12/19/24 13:30 12/19/24 13:00 12/19/24 13:30
Lab Results
12/19/24 09:26
12/19/24 10:27
Troponin I 0.061 ng/ml H* 12/19/24 09:26
Wvx-T-Ujphmnrnbgi Pept 6480 pg/ml 12/19/24 09:26
Physical Exam
General: Other (pale, elderly male on high flow O2)
HEENT: Normocephalic, Anicteric and Moist Mucous Membranes
Respiratory: Clear and Non Labored Respirations
Cardiac: S1/S2, Regular Rhythm and Murmur
GI: Soft, Non Tender, Non Distended and Normal Bowel Sounds
Musculoskeletal: No Clubbing, No Cyanosis and Edema (trace of B/L LE)
Skin: Warm and Dry
Neuro: Awake, Alert and Oriented (to self)
Impression / Plan
-
Primary Typer: Dr. Valentine of [facility]
Assessment:
Presentation with SOB
Acute on chronic hypoxic respiratory failure, typically on 2-3 L NC, currently on high flow O2
Extensive B/L PE
R heart strain by CT
Elevated troponin
Concern for acute CHF
History of DVT/PE 09/2022, previously on eliquis, appears stopped 10/2024
History of L hip fracture s/p repair 04/2022
CAD with TX s/p PCI x2 2006 at [facility], details unknown
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
HTN
HLD
COPD
Dementia
Chronic neuropathy
Anxiety/depression
ECHO 09/26/22: EF 55 to 60%, stage II diastolic dysfunction, mildly dilated left atrium, mild with peak/mean gradients 19/13 mmHg, DARIO 1.5 cm�, mild AR
Plan:
-Patient presented with shortness of breath and hypoxia noted at correction. He typically requires 2 to 3 L nasal cannula, however currently is requiring high flow O2. By CT imaging, patient with evidence of extensive bilateral PE and right
heart strain. Appears his outpatient Eliquis, started 09/2022 in setting of provoked DVT/PE was stopped 10/2024.
-remains very ill at this time with high O2 requirements. admitted to ICU
-records obtained and reviewed from primary catalyst impregnator including last office note and EKG 10/24/24, PPM interrogation 12/30/23.
-Continue IV heparin for now. eventual transition back to [facility]. likely needs lifelong OAC moving forward
-Interventional radiology has been consulted to evaluate for thrombolytics
-Echo pending, last from 09/2022 as above
-Wean supplemental oxygen as able
-Trend troponins, initial 0.06. Does report some discomfort with deep breathing. EKG a sensed V paced rhythm. Has remote history of CAD with stents in the setting of TX, details unknown
-continue supportive care
-noted to be a DNR.
Data Reviewed
-
EKG: Tracing Personally Visualized and interpreted
CT Scan: Report Reviewed by me
Medical Tests (Nuc Med, Echo etc): Report Reviewed by me
Labs: Labs Reviewed by me
Old Records: Requested and Reviewed
--- NOTE | 2024-12-19 14:20 | PTCARENOTE ---
Received pt from the ED sitting up on the stretcher with HFNC 55 Lit, 100% FiO2. He is grossly orthopneic with pulse ox 85-88%. +ASHRAF. Dyspneic with talking. Left posterior FA#20g protective catheter with Heparin @1600units/hr. Right wrist #22g
protective catheter flushed and patent. Good radial and DP pulses. Skin is white, dry flaky skin on his legs and back. CHG bath provided. Incontinent pants removed. He had 2 pairs of incontinent briefs on upon arrival. Unable to peel back foreskin to
expose penis shaft, opening very small. Sacrum and ischium purple/red and blanchable. Calazime cream applied. Brief applied with purwick to keep his skin dry and to conserve oxygen consumption. He was informed of the plan of care. Upon his arrival I
did ask him, should he decompensate and require a breathing machine or a tube down his throat to breath did he want that. He said he did not want that. Dr. Beavers notified when he entered the room. Breath sounds posteriorly coarse throughout on the
right, and the left base. +BSx4. C/O thirst. Lips dry. Safe environment maintained. Use of call saavedra explained to him. He verbalized his understanding. Safe environment maintained.
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
[2024-12-19] MEDS: LASIX 20 MG IV (14:53)
[2024-12-19] MEDS: ProAIR HFA INHALER 2 PUFF INH (14:56)
--- NOTE | 2024-12-19 15:07 | W.PN.UPDATE ---
Update Note
Progress Note Update
CODE STATUS
I spoke with patient at 1500 regarding CODE STATUS, CPR, compressions, breathing machine and if he were to go into cardiac arrest would he want all of those. The patient states' try to bring me back' the nurse Payton was present in the room while I
was on the phone. She did car pick up driver the phone and confirm this is what the patient stated also.
I will change the patient CODE STATUS back to FULL CODE
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
[2024-12-19] MEDS: NEURONTIN 200 MG PO ×2 (15:55→21:30)
--- NOTE | 2024-12-19 16:39 | CM ---
CM received consult to reach out to patient family. CM reviewed prior admissions and called to Liaison at [facility], requested all information about family contacts as patient has been there as ltc for several years. CM will also try to reach out to
sister in [place]. CM will continue to follow for discharge planning needs.
Plan; return to SNF; calling patient family at physician request
--- NOTE | 2024-12-19 16:47 | PTCARENOTE ---
jai pt, speech therapy bedside. tolerating high flow 100% with 55 liters, pulse ox changed to ear/stretchy, now reading more reliably 91%. no distress. resting. notes tired. very sensitive to touch and especially mouth care.
--- NOTE | 2024-12-19 16:50 | PTOTSP ---
ST Acute Care Evaluation
Pt currently presents with clinical signs of mild to moderate oropharyngeal dysphagia characterized by prolonged bolus manipulation and propulsion posteriorly with increased RR and fatigue during the oral phase of swallowing as well as almost
immediate coughing with even just small quantities of thin liquids, highly suspicious for airway invasion. Pt is at a HIGH risk for aspiration given these observations, his current HIGH levels of supplemental O2 (HFNC 100% FiO2, 55L), high
respiratory demands (PO2 88-92%, RR ~20-24bpm), reduced breathing swallowing coordination), hx of dementia, hx of dysphagia, hx of aspiration PNA, hx of poor dentition, hx of large hiatal hernia, as well as his current acute medical conditions that
have him currently hospitalized.
Recommendations:
- NPO except meds whole in puree (crush as needed).
- Consider short term placement of entec (dobhoff) for nutrition/hydration purposes.
- ARHP - ice chips (seldom) with RN supervision only; only after oral care with blue swabs.
- Aspiration and reflux precautions: HOB upright as often as possible; oral care QID.
- SENIOR ACCOUNTANT CPA to f/u re: re-assessment of pt's candidacy for PO diet initiation and to determine if/when pt may be a candidate for an instrumental swallow study.
[2024-12-19] MEDS: DECADRON 4 MG IV (17:28)
[2024-12-19 18:29] LABS: INR 1.27; PT 16.2 Sec (11.4-14.6)
[2024-12-19 19:08] LABS: APTT > 200 Sec (23.4-35.0)
[2024-12-19] MEDS: PULMICORT 0.5 MG INH (19:48)
--- NOTE | 2024-12-19 20:32 | PTCARENOTE ---
On assessment pt AAOx3, denies pain, Vpaced on the monitor, on hep gtt per orders, high flow 100% and 55L 90-90% pulse ox, NPO at this time due to increased O2 requirements, pt also with poor appetite, incontinent, call saavedra in reach
[2024-12-19] MEDS: DICLOFENAC 1% TOPICAL GEL TOPICAL (20:43)
[2024-12-20] VITALS (23 sets, daily range): BP systolic 99–151; BP diastolic 63–95; BMI 28.9
--- NOTE | 2024-12-20 | PTCARENOTE ---
pt tearful and states he wants to 'be left alone', pt was repositioned and call saavedra in reach
[2024-12-20] MEDS: DECADRON 4 MG IV ×3 (02:10→18:18)
[2024-12-20 02:28] LABS: % Basophils 0.2 % (0-2); % Immature Granulocytes 0.5 % (0-0.5); % Lymphocytes 12.3 % (20.5-51.1); % Monocytes 9.8 % (1.7-9.3); % Neutrophils 77.2 % (42.2-75.2); Absolute Lymphocytes 0.8 10^3/uL (1.2-3.4); Absolute Monocytes 0.6 10^3/uL (0.1-0.6); Absolute Neutrophils 5.1 10^3/uL (1.4-6.5); Hematocrit 41.2 % (39.0-52.0); Hemoglobin 13.3 g/dL (13.0-18.0); Mean Corp Hgb Conc. 32.3 g/dL (33.0-37.0); Mean Corpuscular Volume 89.8 fL (80.0-94.0); Mean Platelet Volume 10.6 fL (7.4-10.4); Nucleated Red Blood Cells % 0 % (-); Platelet Count 217 10^3/uL (130-400); Red Blood Cell Count 4.59 10^6/uL (4.70-6.10); Red Cell Dist. Width 13.9 % (11.5-14.5); White Blood Cell Count 6.6 10^3/uL (4.8-10.8)
[2024-12-20 02:39] LABS: APTT 65.9 Sec (23.4-35.0)
[2024-12-20 03:16] LABS: ALT (SGPT) 26 U/L (0-50); AST (SGOT) 22 U/L (17-59); Albumin 3.5 g/dl (3.5-5.0); Alkaline Phosphatase 107 U/L (38-126); Blood Urea Nitrogen 32 mg/dl (9-20); Calcium 8.9 mg/dl (8.4-10.2); Carbon Dioxide 24 mmol/L (22-30); Chloride 102 mmol/L (98-107); Estimated Creatinine Clearance 67 ml/min; Glucose 165 mg/dl (70-99); HDL Cholesterol 32 mg/dl; LDL Cholesterol, Calculated 98 mg/dl; Magnesium 2.2 mg/dl (1.6-2.3); Potassium 4.6 mmol/L (3.5-5.1); Sodium 141 mmol/L (135-145); Total Bilirubin 0.6 mg/dl (0.2-1.3); Total Cholesterol 144 mg/dl (50-199); Total Protein 6.5 g/dl (6.3-8.2); Triglyceride 73 mg/dl (10-149); Very Low Density Lipoprotein 14 mg/dl (0-30); eGFR > 60.00
[2024-12-20] MEDS: MORPHINE SULFATE 1 MG IV (03:23)
--- NOTE | 2024-12-20 05:31 | PTCARENOTE ---
Pt very anxious and tearful this morning, c/o back pain, Non rebreather added for one hour, one time pain med ordered and given see JAN, pt was then repositioned and cleaned, pt states he 'feels better', call saavedra in reach
[2024-12-20] MEDS: DUONEB 3 ML INH ×4 (07:09→19:25)
[2024-12-20] MEDS: PULMICORT 0.5 MG INH ×2 (07:09→19:25)
[2024-12-20] MEDS: TYLENOL 650 MG PO (07:49)
[2024-12-20] MEDS: THERAGRAN 1 TABLET PO (07:50)
[2024-12-20] MEDS: NEURONTIN 200 MG PO ×3 (07:50→20:45)
[2024-12-20] MEDS: LIPITOR 20 MG PO (07:50)
[2024-12-20] MEDS: ZOLOFT 25 MG PO (07:50)
[2024-12-20] MEDS: HEPARIN 25000 UNITS/250 ML IV ×2 (08:01→22:05)
--- NOTE | 2024-12-20 08:15 | PTCARENOTE ---
Assumed care of pt at 0715 following shift report. Pt emotionally distraught, crying and stating 'I'm going to '. Emotional support provided. Oriented to person and place. Thought it was 2023. Reorients easily to time/date. When questioned, pt
reports generalized discomfort. Tylenol given per JAN. Heparin gtt at 1500 units/hr. Hiflow O2 as documented. Pox 89-91%. RR mid 20's. Physical assessment completed as documented. Call saavedra w/in pt reach and safe environment maintained.
[2024-12-20] MEDS: DICLOFENAC 1% TOPICAL GEL TOPICAL ×2 (10:00→20:45)
[2024-12-20 10:01] LABS: APTT 67.1 Sec (23.4-35.0)
[2024-12-20] MEDS: HEPARIN 3500 UNITS IV (10:24)
[2024-12-20] MEDS: ROCEPHIN 2000 MG IV (10:44)
[2024-12-20] MEDS: STERILE WATER FOR INJECTION 20 ML IV (10:44)
[2024-12-20] MEDS: ZITHROMAX INFUSION 250 IV (10:44)
[2024-12-20] MEDS: 0.45%NACL 1000 IV (10:45)
--- NOTE | 2024-12-20 11:16 | W.PN.INTV ---
Addendum entered and electronically signed by Bryson Beavers MD 12/20/24 14:33:
Patient seen and examined independently by myself. Resident note reviewed below and agree
Patient appears to be comfortable. He is a bit more confused overnight, mild delirium noted. Denies chest pain, nausea. Denies shortness of breath
Physical exam
Bronchial breath sounds, few crackles left base
No murmurs
Trace lower extreme edema
Data reviewed
Hemoglobin 13.3
PTT greater than 200, now down to 66
Dopplers with bilateral DVT, subacute, some chronic
A/P
Continue with heparin protocol, bolus as needed
When patient gets coughing spasm and agitated, saturation goes down to the 70s
Continue with DuoNebs, Pulmicort
Will need to clarify CODE STATUS. Per discussion with hospitalist, patient is requesting to not be placed on mechanical ventilation or CPR. He prefers supportive care only. Patient is aware that with any worsening clinical status such as cardiac
arrest, respiratory arrest given his age, comorbidities, chance for meaningful recovery is minimal.
Ongoing efforts to contact family noted. Discussed with case management
TCCT 31 min
Original Note:
Today's Communication / Plan
Recommendations
-Started on IV fluids at lower rate due hx of CHF
-Continue on PE protocol with heparin drip
Assessment
-
Assessment
Impression: The patient is a 89 year-old male with a known previous PE/DVT history in 2001 who presented ER on 12/19 complaining from worsening shortness of breath and cough since last 2-3 days. He was obtained PE study which showed extensive
bilateral pulmonary emboli, suggestion of right heart strain and his chest X Ray showed interstitial changes and large hiatal hernia. The patient was started on PE protocol with heparin drip with APTT follow-up. His ECHO showed normal left
ventricular systolic function with EF at 50 -55%, and diastolic function: To be evaluated due to A-fib. The patient was admitted to ICU for close follow-up/monitoring. This morning, the patient was obtained bilateral peripheral venous ultrasound
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
Conditions present prior to admission
History of DVT left lower extremity, PE, September 2022- hospitalized at [facility]-Was not followed by pulmonary, Thought to be provoked per hospitalist -Off anticoagulation at this time
History of left hip fracture, ORIF May 2022
Aortic stenosis per echocardiogram 2021, valve area 1.5 cm�
History of pacemaker
Hypertension/hyperlipidemia
Chronic neuropathy
Suspected COPD
Suspected interstitial lung disease
Dementia per records
penitentiary resident DNR
#Acute Bilateral PE
-Positive RV strain
-Mildly elevated troponin, proBNP
-On PE protocol with heparin [id number] APTT
-Discussed the possibility of a clot Buster if needed and discussed the possible side effects like GI or intracerebral bleeding-will continue to heparin for now
-Patient seems comfortable in terms of respiratory distress- Able to maintain O2 saturation at 91% under high flow oxygen at 50 L
-Patient is now definitely willing to be on the ventilator-ICU team is working to find his POA to discuss his code status
-Patient is willing to be treated for his PE
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
#COPD
-Per chart review, likely on 2 L supplementary oxygen
-Continue inhalers
-No wheezing on today's exam- empiric steroids can be considered again if needed
-Continue antibiotics (azithromycin + ceftriaxone) due possible PNA possible due to aspiration
-Aspiration precautions (large hiatal hernia was noted)
#HTN
-Underlying cardiac problems/CHF/ -CAD (post status stent)
-4.2 cm aortic aneurysm per imaging
-BP is on the lower side
-Hold amlodipine and metoprolol
#Arrhythmia
-Has pacemaker
-A-fib was observed during echo on 12/19
-Restarting metoprolol can considered tomorrow while monitoring his BP and HR
Subjective Dataa
Subjective Data
Date of Service:
Date of Service: December 20, 2024
Subjective:
This morning patient was found oriented to name his name. He was not oriented to place or person or time. He denied any pain or difficulty with breathing.
Review of Systems
General: Other (Not communicative due underlying dementia-denies any chest, abdominal, extremity pain)
HEENT: Other
Cardiopulmonary: Edema (Trace edema left greater than right)
Neuro: Other (Dementia)
Objective Data
Data Reviewed
Vital Signs / I&O / Oxygen:
Vital Signs
Temp Pulse Resp BP Pulse Ox
97.8 F 76 21 120/66 93
12/20/24 11:16 12/20/24 07:13 12/20/24 07:13 12/20/24 06:00 12/20/24 07:14
Intake and Output
12/19/24 12/20/24 12/21/24
06:59 06:59 06:59
Intake Total 255 / 255
Output Total 525 / 525
Balance -270 / -270
SaO2 93
Nasal Cannula flow liters per 50
minute
Physical Exam
General: Comfortable (On high oxygen flow at 50 L of nasal cannula)
HEENT: Normocephalic
Cardiovascular: Irregular Rhythm
Respiratory: Clear and Other
GI: Soft, Non Distended and Non Tender
Neurology: Awake, Alert and Oriented (And oriented to his name this morning, not oriented to time and place)
Skin: Warm and Dry
Labs/Micro/Reports
Lab Data
12/20/24 02:19
12/20/24 02:19
Laboratory Results
12/19/24 12/19/24 12/19/24
12:10 18:11 18:11
PT Cancelled 16.2 H
INR Cancelled
APTT 32.9
12/19/24 12/19/24 12/20/24
18:11 18:11 02:19
PT
INR 1.27
APTT Cancelled > 200 H* 65.9 H
12/20/24
09:43
PT
INR
APTT 67.1 H
Microbiology
12/19/24 09:48 Nasal Swab Influenza Types A & B (REID) - Final
Negative for Influenza A & B, NAAT
Negative results must be combined with clinical observations
and patient history.
Nucleic Acid Amplification test (NAAT)performed on the
[employer] platform.
--- NOTE | 2024-12-20 12:00 | PTCARENOTE ---
Pt more alert and conversant- asking for glasses to be brought to hospital. Maureen Mena notified of pt's request- will attempt to have pt's glasses delivered to hospital. Pt denies c/o pain. Tolerating diet- no difficulty swallowing noted (this
RN present in room the entire time pt ate breakfast). Hiflow conts w/ Resp Therapist tapering while keeping POx >90%. Pt denies SOB at present. Heparin gtt currently infusing at 1700 units/hr per protocol. No additional changes from previous
assessment findings.
--- NOTE | 2024-12-20 14:10 | W.PN.HOSP.TC ---
Today's Communication/Plan
-
abx, steroids
wean o2 as tolerated
reduce fluid rate
Assessment / Plan
Assessment / Plan
Physical Exam
General: Comfortable and Conversant; No Pain or Fever
HEENT: NormoCephalic, Anicteric, Moist mucous membranes and Oxygen (high flow nc)
Respiratory: Wheezes (ep bilat ) and Rhonchi (RLL )
Cardiac: S1/S2, Regular Rhythm and JVD; No Murmur, Rub, Gallop or Peripheral Edema
Breast: Deferred by me
GI: Soft, Non Distended, Normal Bowel Sounds, and No Hepatosplenomegaly
Rectal: Deferred by Provider
Genito-urinary: Deferred by me
Musculoskeletal: No Clubbing, No Cyanosis and No Edema
Skin: Warm and Dry; No Rash
Neuro: AO x 3, Nonfocal/grossly intact, Cranial Nerves Intact; No Slurred Speech, Facial Droop or Tremors
Psych: Calm
#Acute Hypoxic Respiratory Failure 22/ to PE and COPD exacerbation
#Extensive bilateral PE
#B/l DVT
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
-ECHO with 50-55%;
-Pulmonary on board
-HFNC, wean as tolerated; Goal O2>92%
-Conservative therapy after discussion with pulmonary - Continue hep ggt
-Reduce IVF rate
#COPD exacerbation
-PE and possible pneumonia
steroids and abx
wean steroids as tolerated
#Hypotension/HTN/benign
-Hold isosorbide 30 mg daily, metoprolol succinate 25 mg daily
#Chronic heart failure history preserved EF
I/O,, daily weight
-does not appear to be in acute overload
#Hx of lower extremity DVT/PE 10/05/2022
-This was treated with Eliquis Unsure when Eliquis was stopped
#Type II NE secondary to PE
#Hx troponin elevation January 2023 with peak 0.062
Non ischemic myocardial injury
#COPD mild/m�no acute exacerbation
#Chronic hypoxic respiratory failure on chronic 2 to 3 L baseline
cont enoro elipta
-duonebs
#CAD s/p stent
-cont Lipitor 20 mg hs HOLD BB due to hypotension
#Pacemaker hx
#HLD
cont cont Lipitor 20 mg hs
#Chronic Neuropathy
- cont gabapentin , Tramadol prn mod pain
# Gastric Muscle spasms
cont dicylomine 20 mg tid
#BPH
Monitor I/o
-Bladder scan protocol
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
OTHER PMH:
aspiration pneumonitis
Fatty liver
Hiatal hernia
Dysphagia due to poor dentition
Dvt proph
- IV heparin gtt
Code Status: Spoke to patient - he is adamant on not being intubated, understanding if his heart stops that requires intubation and therefore agrees to DNR/DNI with wants to pass peacefully if he decompensates to that point.
Total time spent on today's encounter was 50 minutes which included time spent in counseling the patient/family regarding diagnosis and treatment plan as listed above, goals of care, and symptom management. Case was discussed with nursing staff,
specialists, and care coordinators/case management. All labs and imaging personally reviewed by me. Remainder the time spent in detailed review of previous records, lab data, imaging, and other medical provider documentation.
Anticipated Discharge: > 48 hours
Subjective/Interval History
-
Date of Service: December 20, 2024
no acute events, dvt noted in LEs
Objective Data
-
Labs:
Laboratory Results
12/20/24 12/20/24 12/20/24
02:19 09:43 16:30
WBC 6.6
Hgb 13.3
Hct 41.2
Plt Count 217
APTT 65.9 H 67.1 H Pending
Sodium 141
Potassium 4.6
Chloride 102
Carbon Dioxide 24
BUN 32 H
Creatinine 0.8
Glucose 165 H
Calcium 8.9
Total Bilirubin 0.6
AST 22
ALT 26
Alkaline Phosphatase 107
Vital Signs:
Vital Signs
Temp Pulse Resp BP Pulse Ox
97.8 F 87 23 116/82 96
12/20/24 11:16 12/20/24 12:00 12/20/24 12:00 12/20/24 12:00 12/20/24 12:00
I&O
12/19/24 12/20/24 12/21/24
06:59 06:59 06:59
Intake Total 255 / 270 531 / 531
Output Total 525 / 525
Balance -270 / -255 531 / 531
Review of Systems
-
History Source: Patient
All other systems: Not reviewed unless documented
Physical Exam
-
General: No Apparent Distress
HEENT: Moist Mucous Membranes
Respiratory: Clear to Auscultation
Cardiac: Regular Rhythm and S1/S2
GI: Soft, Nontender, Nondistended and Normal Bowel Sounds
Musculoskeletal: No Edema
Skin: Warm
Neuro: Awake, No Motor Deficits and Nonfocal/Grossly Intact
Psych: Calm
Data Reviewed
-
CT Scan: Report Reviewed by me
Ultrasound: Report Reviewed by me
Labs: Labs Reviewed by me
--- NOTE | 2024-12-20 14:23 | CM ---
CM following re: discharge planning.
Discussed in Rounds, reviewed pt's chart, met with pt. Per Rounds meeting, pt requires 50 L HFNC with FIO2 80%, continue supportive care, locating family is important to navigate/coordinate level of care.
Per chart, pt allegedly has sister Racquel Aguayo and she lives in [place]. CM called [place] police department and dispatcher told she cannot help without the address where she lives.
CM spoke to the pt and pt stated he has been living at [facility] for the past 2 years. pt expressed his very unhappy feelings towards his son that brought him to [facility] and 'run away'. Pt stated: 'I do not know where they are, they
never visited me, I have no family'. Pt stated he does not have sisters and brothers, just 2 sons and he does not know where they are.
Per [facility] liaison one son . [facility] liaison confirmed that they will work to obtain a legal guardianship when pt returns back to [facility]. Pt is on bed hold, ambulates with a walker.
D/c plan: return back to [facility] for a LTC when medically stable.
CM will follow with discharge plan updates as hospitalization progresses
[2024-12-20 16:44] LABS: APTT 120.4 Sec (23.4-35.0)
--- NOTE | 2024-12-20 16:53 | PTCARENOTE ---
Pt continues to rest quietly, O2 currently at 55L/70% via Hiflow. POx 98%. Occasional moist cough productive of white sputum. Denies c/o pain. No additional changes from previous assessment findings.
--- NOTE | 2024-12-20 17:07 | W.PN.CARDCBS ---
Today's Communication / Plan
-
Plan:
-Patient presented with shortness of breath and hypoxia noted at [facility]. He typically requires 2 to 3 L nasal cannula, however currently is requiring high flow O2. By CT imaging, patient with evidence of extensive bilateral PE and right
heart strain. Appears his outpatient Eliquis, started 09/2022 in setting of provoked DVT/PE was stopped 10/2024.
-remains very ill at this time with high O2 requirements. admitted to ICU
-Intermittent delirium with baseline poor historian.
-records obtained and reviewed from primary makeup instructor including last office note and EKG 10/24/24, PPM interrogation 12/30/23.
-Continue IV heparin for now. [facility]. He will need lifelong OAC moving forward.
-No plans for acute percutaneous intervention from the PERT team
-Echocardiogram with mildly reduced LV systolic function with mild RV enlargement and RV dysfunction. Very technically difficult study.
-Wean supplemental oxygen as able.
-Trend troponins, initial 0.06. Does report some discomfort with deep breathing. EKG a sensed V paced rhythm. Has remote history of CAD with stents in the setting of HI, details unknown
-continue supportive care
-noted to be a DNR.
-Guarded Prognosis.
Impression / Plan
-
Primary Washroom Attendant: Dr. Valentine of [facility]
Assessment:
Presentation with SOB
Acute on chronic hypoxic respiratory failure, typically on 2-3 L NC, currently on high flow O2
Extensive B/L PE
R heart strain by CT
Elevated troponin
Concern for acute CHF
History of DVT/PE 09/2022, previously on eliquis, appears stopped 10/2024
History of L hip fracture s/p repair 04/2022
CAD with HI s/p PCI x2 2006 at [facility], details unknown
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
HTN
HLD
COPD
Dementia
Chronic neuropathy
Anxiety/depression
ECHO 09/26/22: EF 55 to 60%, stage II diastolic dysfunction, mildly dilated left atrium, mild with peak/mean gradients 19/13 mmHg, DARIO 1.5 cm�, mild AR
LE US: Acute deep venous thrombosis of the right lower extremity, as detailed above, in this patient with current pulmonary embolism. 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
Plan:
-Patient presented with shortness of breath and hypoxia noted at [facility]. He typically requires 2 to 3 L nasal cannula, however currently is requiring high flow O2. By CT imaging, patient with evidence of extensive bilateral PE and right
heart strain. Appears his outpatient Eliquis, started 09/2022 in setting of provoked DVT/PE was stopped 10/2024.
-remains very ill at this time with high O2 requirements. admitted to ICU
-Intermittent delirium with baseline poor historian.
-records obtained and reviewed from primary makeup instructor including last office note and EKG 10/24/24, PPM interrogation 12/30/23.
-Continue IV heparin for now. eventual transition back to eliquis. He will need lifelong OAC moving forward.
-No plans for acute percutaneous intervention from the PERT team
-Echocardiogram with mildly reduced LV systolic function with mild RV enlargement and RV dysfunction. Very technically difficult study.
-Wean supplemental oxygen as able.
-Trend troponins, initial 0.06. Does report some discomfort with deep breathing. EKG a sensed V paced rhythm. Has remote history of CAD with stents in the setting of HI, details unknown
-continue supportive care
-noted to be a DNR.
-Guarded Prognosis.
Progress Note - Washroom Attendant
Subjective
Date of Service: December 20, 2024
Intermittently confused. Denies any pain. Complains of shortness of breath.
Objective
Labs:
12/20/24 02:19
12/20/24 02:19
Labs
Hgb 13.3 g/dL (13.0-18.0) 12/20/24 02:19
Hct 41.2 % (39.0-52.0) 12/20/24 02:19
Plt Count 217 10^3/uL (130-400) 12/20/24 02:19
PT 16.2 Sec (11.4-14.6) H 12/19/24 18:11
PT Cancelled 12/19/24 18:11
INR 1.27 12/19/24 18:11
INR Cancelled 12/19/24 18:11
APTT 120.4 Sec (23.4-35.0) H 12/20/24 16:25
Sodium 141 mmol/L (135-145) 12/20/24 02:19
Potassium 4.6 mmol/L (3.5-5.1) 12/20/24 02:19
BUN 32 mg/dl (9-20) H 12/20/24 02:19
Creatinine 0.8 mg/dL (0.7-1.3) 12/20/24 02:19
Glucose 165 mg/dl (70-99) H 12/20/24 02:19
Troponins
12/19/24
09:26
Troponin I 0.061 H*
Vital Signs and I&O:
Vital Signs
Temp Pulse Resp BP Pulse Ox
98 F 89 21 112/86 100
12/20/24 15:18 12/20/24 16:00 12/20/24 16:00 12/20/24 16:00 12/20/24 15:10
Vital Signs
Temp Pulse Resp BP Pulse Ox
98 F 89 21 112/86 100
12/20/24 15:18 12/20/24 16:00 12/20/24 16:00 12/20/24 16:00 12/20/24 15:10
Intake & Output
12/18/24 12/19/24 12/20/24 12/21/24
06:59 06:59 06:59 06:59
Intake Total 255 / 270 762 / 762
Output Total 525 / 525
Balance -270 / -255 762 / 762
Physical Exam
Physical Exam
General:Congused, A+O x 1
Neck: Supple, no JVD, HJR, carotids +2 B/L, no bruits bilaterally.
Heart: Non displaced PMI, Reg with ectopy, 1/6 AHSM, No S3, S4, no rubs.
Lungs: Few bibasilar crackles with coarse breath sounds and faint expiratory wheeze
Abdomen: Soft, nontender, nondistended positive bowel sounds
Extremities: No clubbing, cyanosis or edema bilaterally.
[2024-12-20 23:16] LABS: APTT 81.8 Sec (23.4-35.0)
[2024-12-21] VITALS (23 sets, daily range): BP systolic 108–157; BP diastolic 60–121; PULSE 83; O2SAT 94; BMI 28.6
--- NOTE | 2024-12-21 | PTCARENOTE ---
pt tearful and anxious, pt repositioned and PRN meds given see MAR, call saavedra in reach
[2024-12-21] MEDS: 0.45%NACL 1000 IV (00:59)
[2024-12-21] MEDS: ULTRAM 50 MG PO (00:59)
[2024-12-21] MEDS: DECADRON 4 MG IV ×2 (01:00→09:46)
[2024-12-21] MEDS: MORPHINE SULFATE 2 MG IV (02:56)
--- NOTE | 2024-12-21 03:32 | PTCARENOTE ---
On assessment pt AAOx2, forgetful of time, denies pain and SOB, Vpaced on the monitor, on hep gtt per orders, weaning down high flow, 92% pulse ox, incontinent, bed alarm on and call saavedra in reach
--- NOTE | 2024-12-21 03:35 | PTCARENOTE ---
PRN pain meds given see MAR, tearful again at this time, call saavedra in reach
[2024-12-21 05:01] LABS: % Immature Granulocytes 0.6 % (0-0.5); % Lymphocytes 7.8 % (20.5-51.1); % Monocytes 8.8 % (1.7-9.3); % Neutrophils 82.8 % (42.2-75.2); Absolute Immature Granulocytes 0.1 10^3/uL (0-0.05); Absolute Lymphocytes 0.8 10^3/uL (1.2-3.4); Absolute Monocytes 0.9 10^3/uL (0.1-0.6); Absolute Neutrophils 8.1 10^3/uL (1.4-6.5); Hematocrit 37.6 % (39.0-52.0); Hemoglobin 12.5 g/dL (13.0-18.0); Mean Corp Hgb Conc. 33.2 g/dL (33.0-37.0); Mean Corpuscular Hgb 29.5 pg (27.0-31.0); Mean Corpuscular Volume 88.7 fL (80.0-94.0); Mean Platelet Volume 10.9 fL (7.4-10.4); Nucleated Red Blood Cells % 0 % (-); Platelet Count 222 10^3/uL (130-400); Red Blood Cell Count 4.24 10^6/uL (4.70-6.10); Red Cell Dist. Width 13.9 % (11.5-14.5); White Blood Cell Count 9.8 10^3/uL (4.8-10.8)
[2024-12-21 05:03] LABS: APTT 92.5 Sec (23.4-35.0)
[2024-12-21 06:32] LABS: ALT (SGPT) 32 U/L (0-50); AST (SGOT) 26 U/L (17-59); Albumin 3.1 g/dl (3.5-5.0); Alkaline Phosphatase 97 U/L (38-126); Blood Urea Nitrogen 33 mg/dl (9-20); Calcium 8.6 mg/dl (8.4-10.2); Carbon Dioxide 26 mmol/L (22-30); Chloride 102 mmol/L (98-107); Estimated Creatinine Clearance 68 ml/min; Glucose 166 mg/dl (70-99); Potassium 4.3 mmol/L (3.5-5.1); Sodium 135 mmol/L (135-145); Total Bilirubin 0.3 mg/dl (0.2-1.3); Total Protein 5.9 g/dl (6.3-8.2); eGFR > 60.00
[2024-12-21] MEDS: PULMICORT 0.5 MG INH ×2 (07:15→19:27)
[2024-12-21] MEDS: DUONEB 3 ML INH ×4 (07:15→19:27)
--- NOTE | 2024-12-21 08:30 | PTCARENOTE ---
Assumed care of patient. Pt rec'd sleeping...aroused by self. A&Ox2...occasionally confused to time. Forgetful at times. Pleasant. WASHBURN's but weak. Takes pills crushed in applesauce. S1 S2 reg w/ vpacing on monitor. +PP. Trace generalized
edema. Rec'd on HFNC 40L/50%...sats 96%. Lungs clear but diminished in bases. Abdomen soft and round..+BS. Breakfast ordered...on cholesterol lowering diet. Incontinent of kiersten urine. Purewick on w/ attends. Skin WNL...protective foam on
sacrum. LFA 20P w/ IVF's infusing. 22P RW w/ heparin gtt infusing. VS documented. Safe environment confirmed.
[2024-12-21] MEDS: NEURONTIN 200 MG PO ×3 (08:45→20:00)
[2024-12-21] MEDS: ZOLOFT 25 MG PO (08:45)
[2024-12-21] MEDS: LIPITOR 20 MG PO (08:45)
[2024-12-21] MEDS: THERAGRAN 1 TABLET PO (08:45)
[2024-12-21] MEDS: DICLOFENAC 1% TOPICAL GEL 2 GRAM TOPICAL (08:46)
[2024-12-21] MEDS: STERILE WATER FOR INJECTION 20 ML IV (09:47)
[2024-12-21] MEDS: ROCEPHIN 2000 MG IV (09:47)
[2024-12-21] MEDS: ZITHROMAX INFUSION 250 IV (09:55)
--- NOTE | 2024-12-21 10:50 | PN.CDI ---
CDI
- -
CDI:
Physician Documentation Request
Admit Date: 12/19/24 13:35
Dear Doctor Arthur,
Please review the following and provide your response in the progress notes.
Clinical Indicators:
- 12/20 PN has conflicting documentation:
- 'COPD exacerbation'
- 'COPD mild/m�no acute exacerbation'
- Steroids -budesonide, dexamethasone given
- 12/20 Pulmonary 'Suspected COPD'
Please clarify the following regarding current COPD:
COPD with acute exacerbation
COPD - no acute exacerbation
Other (please specify)
Use of terms such as suspected, likely, concern for, or probable (associated with a specific diagnosis that is being evaluated, monitored, or treated as if it exists) are acceptable and can be coded in the inpatient setting, when documented at the
time of discharge.
Thank you,
Bertha Zavala RN
CDI Specialist
Please use your independent medical judgment in providing your response.
--- NOTE | 2024-12-21 10:56 | PN.CDI ---
CDI
- -
CDI:
Physician Documentation Request
Admit Date: 12/19/24 13:35
Dear Doctor Arthur,
Please review the following and provide your response in the progress notes.
Clinical Indicators:
- 12/19 H&P 'Acute on Chronic heart failure history preserved EF'
- 12/20 Cardiology 'Concern for acute CHF'
- 12/20 PN 'Chronic heart failure history preserved EF
- 12/19 20mg IV lasix given
- proBNP 6480
Please clarify the following:
____ - Acute on chronic HFpEF was present on admission and is now resolved
____ - Acute HFpEF was ruled out, chronic HFpEF only
____ - Other
Use of terms such as suspected, likely, concern for, or probable (associated with a specific diagnosis that is being evaluated, monitored, or treated as if it exists) are acceptable and can be coded in the inpatient setting, when documented at the
time of discharge.
Thank you,
Bertha Zavala RN
CDI Specialist
Please use your independent medical judgment in providing your response.
--- NOTE | 2024-12-21 11:02 | PN.CDI ---
CDI
- -
CDI:
Physician Documentation Request
Admit Date: 12/19/24 13:35
Dear Cardiology,
Please review the following and provide your response in the progress notes.
Clinical Indicators:
- Patient admit with extensive bilateral PE
- 12/20 Cardiology - per CT Chest 'extensive bilateral PE and right heart strain'
- 12/19 Echo right atrial pressure of 3mmHg
- Normal right ventricular size
- Mild tricuspid regurgitation
Please clarify the patient's documented right heart strain:
Acute pulmonary embolism with cor pulmonale
Acute pulmonary embolism without cor pulmonale
Other (please specify)
Use of terms such as suspected, likely, concern for, or probable (associated with a specific diagnosis that is being evaluated, monitored, or treated as if it exists) are acceptable and can be coded in the inpatient setting, when documented at the
time of discharge.
Thank you,
Bertha Zavala RN
CDI Specialist
Please use your independent medical judgment in providing your response.
--- NOTE | 2024-12-21 11:18 | W.PN.INTV ---
Addendum entered and electronically signed by Bryson Beavers MD 12/21/24 12:54:
Patient seen and examined independently by myself. Resident note reviewed below. Agree with assessment and plan
Overall, patient improving, oxygen requirement improved, down to mid flow. Patient does not look short of breath with conversation
Heparin therapy therapeutic, PTT 93
Physical exam
Mild crackles at the base, minimal wheeze, otherwise air exchange adequate
No murmurs
No significant edema
Data reviewed
PTT 93, hemoglobin 12.5, normal liver function
A/P
Continue with anticoagulation
Will transition from heparin to Lovenox twice daily and eventual transition to oral therapy
Wean oxygen as able
Restart beta-marcello therapy, low-dose, advance as able. Follow hemodynamics
Okay for out of bed to chair, PT/OT
Aspiration precautions
Okay for transfer out of ICU. Pulmonary will continue to follow
Reviewed with critical care nursing, respiratory care, primary service, pharmacy
Original Note:
Today's Communication / Plan
Recommendations
- Wean oxygen as tolerated to his baseline 2-L /continue inhalers
-Switched empiric antibiotics to Augmentin
-Switch heparin drip to enoxaparin q12H
-PT OT assessment
-Start metoprolol 12.5 mg twice daily
-Switch IV steroids to oral steroids tomorrow
Assessment
-
Assessment
Impression: The patient is a 89 year-old male with a known previous PE/DVT history in 2001 who presented ER on 12/19 complaining from worsening shortness of breath and cough since last 2-3 days. He was obtained PE study which showed extensive
bilateral pulmonary emboli, suggestion of right heart strain and his chest X Ray showed interstitial changes and large hiatal hernia. The patient was started on PE protocol with heparin drip with APTT follow-up. His ECHO showed normal left
ventricular systolic function with EF at 50 -55%, and diastolic function: To be evaluated due to A-fib. The patient was admitted to ICU for close follow-up/monitoring. PERT team did assess the patient for a possible percutaneous intervention and
it was decided to continue with heparin drip. The patient is clinically improved with heparin drip and his high flow oxygen was tapered at 10 L his morning on 12/21. Because patient maintaining his saturation and vitals stable, it will be discussed
with the hospitalist team to transfer the patient to telemetry today.
Conditions present prior to admission
History of DVT left lower extremity, PE, September 2022- hospitalized at [place]-Was not followed by pulmonary, Thought to be provoked per hospitalist -Off anticoagulation at this time
History of left hip fracture, ORIF May 2022
Aortic stenosis per echocardiogram 2021, valve area 1.5 cm�
History of pacemaker
Hypertension/hyperlipidemia
Chronic neuropathy
Suspected COPD
Suspected interstitial lung disease
Dementia per records
snf resident DNR
#Acute Bilateral PE
-Chest CT on 12/19: Extensive bilateral pulmonary emboli+positive RV strain
-Mildly elevated troponin, proBNP-likely due to type II AR secondary to PE
-Started on PE protocol with heparin drip heparin drip dc- Switched to enoxaparin Q12H
-PERC team decided to hold on percutaneous intervention-patient's condition improving-no plan for thrombolytic treatment
-Appreciate cardio input
-Patient seems comfortable in terms of respiratory distress- Able to maintain O2 saturation at 99 % under high flow oxygen at 10 L this a.m. after the full of decreased from 50 L-continue to taper
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
-Patient's condition stable and decided to discuss with hospitalist team to transfer the patient to telemetry
#COPD
-Per chart review, likely on 2 L supplementary oxygen at baseline
-Continue inhalers
-No wheezing/crackles on left lung on today's exam
-Switched empiric antibiotics (azithromycin + ceftriaxone) to Augmentin due possible PNA
-WBG normal-No fever spikes
-Aspiration precautions (large hiatal hernia was noted)
-Switching to oral steroids planned for tomorrow
#HTN
-Underlying cardiac problems/CHF/ -CAD (post status stent)
-4.2 cm aortic aneurysm per imaging
-BP is on the lower side
-Restarted metoprolol
-Hold amlodipine -Restarting amlodipine can considered tomorrow
#Arrhythmia
-Has pacemaker
-A-fib was observed during echo on 12/19
-Restarted metoprolol 12.5 mg BID- while monitoring his BP and HR
Code status: ICU team is working to find his POA to clarify his code status-appreciate nurse case management involvement.
Subjective Dataa
Subjective Data
Date of Service:
Date of Service: December 21, 2024
Chief Complaint: Souvenir And Novelty Maker Follow Up
Subjective:
The patient is oriented to only his name and not place or person. He has underlying dementia. He was moving all his extremities freely in the bed and following 2 works commands.
Review of Systems
General: Other (Not communicative due underlying dementia-denies any chest, abdominal, extremity pain)
Cardiopulmonary: Other (Trace edema on lower extremities )
GI: Other (denies pain )
Neuro: Other (no focal weakness-dementia )
Objective Data
Data Reviewed
Vital Signs / I&O / Oxygen:
Vital Signs
Temp Pulse Resp BP Pulse Ox
98.4 F 77 20 151/82 99
12/21/24 08:00 12/21/24 07:18 12/21/24 07:18 12/21/24 07:00 12/21/24 07:19
Intake and Output
12/20/24 12/21/24 12/22/24
06:59 06:59 06:59
Intake Total 255 / 270 2292 / 2367 745 / 745
Output Total 525 / 525 700 / 700
Balance -270 / -255 1592 / 1667 745 / 745
SaO2 99
Nasal Cannula flow liters per 40
minute
Physical Exam
General: Comfortable (On high oxygen flow at 50 L of nasal cannula)
HEENT: Normocephalic
Cardiovascular: Irregular Rhythm
Respiratory: Clear and Crackles (on the left side )
GI: Soft, Non Distended and Non Tender
Neurology: Awake, Alert and Oriented (And oriented to his name this morning, not oriented to time and place)
Skin: Warm and Dry
Labs/Micro/Reports
Lab Data
12/21/24 04:38
12/21/24 05:53
Laboratory Results
12/20/24 12/20/24 12/21/24
16: 22:57 04:38
APTT 120.4 H 81.8 H 92.5 H
Microbiology
12/19/24 17:07 Nose MRSA Screen - Final
No Methicillin Resistant Staphylococcus aureus isolated.
12/19/24 09:48 Nasal Swab Influenza Types A & B (REID) - Final
Negative for Influenza A & B, NAAT
Negative results must be combined with clinical observations
and patient history.
Nucleic Acid Amplification test (NAAT)performed on the
[employer] platform.
--- NOTE | 2024-12-21 12:00 | PTCARENOTE ---
No major changes in physical assessment. O2 currently at 10L MFNC...sats 97%. Will start lovenox per MD orders and stop heparin gtt. IVF's capped. Call saavedra within reach. Will continue to monitor.
[2024-12-21] MEDS: LOVENOX 90 MG SC ×2 (12:22→23:00)
--- NOTE | 2024-12-21 13:52 | W.PN.CARDCBS ---
Addendum entered and electronically signed by Darby Humphries PA-C 12/21/24 15:53:
Assessment:
Presentation with SOB
Acute on chronic hypoxic respiratory failure, typically on 2-3 L NC, currently on high flow O2
Extensive B/L PE
R heart strain by CT
Elevated troponin
Concern for acute CHF
History of DVT/PE 09/2022, previously on eliquis, appears stopped 10/2024
History of L hip fracture s/p repair 04/2022
CAD with [place] s/p PCI x2 2006 at [facility], details unknown
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
HTN
HLD
COPD
Dementia
Chronic neuropathy
Anxiety/depression
Acute pulmonary embolism with cor pulmonale
Original Note:
Today's Communication / Plan
-
Bilateral extensive pulmonary emboli and bilateral DVT. Anticoagulation per primary service and health actuary. Likely will need lifetime anticoagulation.
Echo likely with some RV strain. Continue supportive care.
Wean oxygen as tolerates.
Follow telemetry
Troponin elevation likely related to large pulmonary emboli.
We will interrogate pacemaker.
Impression / Plan
-
Primary Petroleum Refinery Operator: Dr. Valentine of [facility]
Assessment:
Presentation with SOB
Acute on chronic hypoxic respiratory failure, typically on 2-3 L NC, currently on high flow O2
Extensive B/L PE
R heart strain by CT
Elevated troponin
Concern for acute CHF
History of DVT/PE 09/2022, previously on eliquis, appears stopped 10/2024
History of L hip fracture s/p repair 04/2022
CAD with [place] s/p PCI x2 2006 at [facility], details unknown
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
HTN
HLD
COPD
Dementia
Chronic neuropathy
Anxiety/depression
ECHO 09/26/22: EF 55 to 60%, stage II diastolic dysfunction, mildly dilated left atrium, mild with peak/mean gradients 19/13 mmHg, DARIO 1.5 cm�, mild AR
LE US: Acute deep venous thrombosis of the right lower extremity, as detailed above, in this patient with current pulmonary embolism. 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
Plan:
-Patient remains ill. Patient presented with shortness of breath and hypoxia noted at shelter. He typically requires 2 to 3 L nasal cannula, however currently is requiring high flow O2. Sitting in chair but still with increased oxygen
requirements. No chest pain. Presentation with extensive bilateral PE and right heart strain. Both left and right DVT noted by ultrasound. Right appears acute. By records appears his outpatient Eliquis, started 09/2022 in setting of provoked
DVT/PE was stopped 10/2024.
-Anticoagulation per primary service and health actuary suspect will need lifetime anticoagulation
-Previously records obtained and reviewed from primary sales enablement manager including last office note and EKG 10/24/24, PPM interrogation 12/30/23. Will interrogate pacemaker.
-Echocardiogram with mildly reduced LV systolic function with mild RV enlargement and RV dysfunction. Very technically difficult study.
-Troponin elevation likely non-NV troponin elevation secondary to large pulmonary embolism. No chest pain noted. He has remote history of CAD with stents in the setting of [place], details unknown
-noted to be a DNR.
-Telemetry stable with intermittent tachycardia.
Progress Note - Petroleum Refinery Operator
Subjective
Date of Service: December 21, 2024
He has some shortness of breath. His left leg hurts. No chest pain.
Objective
Labs:
12/21/24 04:38
12/21/24 05:53
Labs
Hgb 12.5 g/dL (13.0-18.0) L 12/21/24 04:38
Hct 37.6 % (39.0-52.0) L 12/21/24 04:38
Plt Count 222 10^3/uL (130-400) 12/21/24 04:38
PT 16.2 Sec (11.4-14.6) H 12/19/24 18:11
PT Cancelled 12/19/24 18:11
INR 1.27 12/19/24 18:11
INR Cancelled 12/19/24 18:11
APTT 92.5 Sec (23.4-35.0) H 12/21/24 04:38
Sodium 135 mmol/L (135-145) 12/21/24 05:53
Potassium 4.3 mmol/L (3.5-5.1) 12/21/24 05:53
BUN 33 mg/dl (9-20) H 12/21/24 05:53
Creatinine 0.7 mg/dL (0.7-1.3) 12/21/24 05:53
Glucose 166 mg/dl (70-99) H 12/21/24 05:53
Troponins
12/19/24
09:26
Troponin I 0.061 H*
Vital Signs and I&O:
Vital Signs
Temp Pulse Resp BP Pulse Ox
97.8 F 79 18 120/73 100
12/21/24 11:40 12/21/24 11:19 12/21/24 11:19 12/21/24 11:00 12/21/24 11:19
Vital Signs
Temp Pulse Resp BP Pulse Ox
97.8 F 79 18 120/73 100
12/21/24 11:40 12/21/24 11:19 12/21/24 11:19 12/21/24 11:00 12/21/24 11:19
Intake & Output
12/19/24 12/20/24 12/21/24 12/22/24
06:59 06:59 06:59 06:59
Intake Total 255 / 270 2292 / 2367 745 / 745
Output Total 525 / 525 700 / 700
Balance -270 / -255 1592 / 1667 745 / 745
Physical Exam
Physical Exam
General: Elderly man in chair short of breath at rest
Heart: Distant heart sounds
Lungs: Coarse anterior breath sounds
Extremities: No clubbing, cyanosis trace to +1 edema bilaterally.
Neuro: Awake
--- NOTE | 2024-12-21 14:28 | W.PN.HOSP.TC ---
Today's Communication/Plan
-
wean o2 as tolerated
switch to lovenox
low dose BB, monitor BP
switch to oral steroids, abx
Assessment / Plan
Assessment / Plan
Physical Exam
General: Comfortable and Conversant; No Pain or Fever
HEENT: NormoCephalic, Anicteric, Moist mucous membranes and Oxygen (high flow nc)
Respiratory: Wheezes (ep bilat ) and Rhonchi (RLL )
Cardiac: S1/S2, Regular Rhythm and JVD; No Murmur, Rub, Gallop or Peripheral Edema
Breast: Deferred by me
GI: Soft, Non Distended, Normal Bowel Sounds, and No Hepatosplenomegaly
Rectal: Deferred by Provider
Genito-urinary: Deferred by me
Musculoskeletal: No Clubbing, No Cyanosis and No Edema
Skin: Warm and Dry; No Rash
Neuro: AO x 3, Nonfocal/grossly intact, Cranial Nerves Intact; No Slurred Speech, Facial Droop or Tremors
Psych: Calm
#Acute Hypoxic Respiratory Failure 22/ to PE and COPD exacerbation +/- PNA
#Extensive bilateral PE
#B/l DVT
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
-ECHO with 50-55%;
-Pulmonary on board
-HFNC, wean as tolerated; Goal O2>92%
-Conservative therapy after discussion with pulmonary - hep ggt - switch to lovenox
-abx
#COPD exacerbation
-PE and possible pneumonia
steroids and abx
wean steroids as tolerated
#Pneumonia
-cont abx
#Hypotension/HTN/benign
-Hold isosorbide 30 mg daily
-restart metoprolol succinate low dose - advance as needed - home dose 25 mg daily
#Chronic heart failure history preserved EF
I/O,, daily weight
-does not appear to be in acute overload
#Hx of lower extremity DVT/PE 10/05/2022
-This was treated with Eliquis Unsure when Eliquis was stopped
#Type II FL secondary to PE
#Hx troponin elevation January 2023 with peak 0.062
Non ischemic myocardial injury
#COPD mild/m�no acute exacerbation
#Chronic hypoxic respiratory failure on chronic 2 to 3 L baseline
cont enoro elipta
-duonebs
#CAD s/p stent
-cont Lipitor 20 mg hs HOLD BB due to hypotension
#Pacemaker hx
#HLD
cont cont Lipitor 20 mg hs
#Chronic Neuropathy
- cont gabapentin , Tramadol prn mod pain
# Gastric Muscle spasms
cont dicylomine 20 mg tid
#BPH
Monitor I/o
-Bladder scan protocol
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
OTHER PMH:
aspiration pneumonitis
Fatty liver
Hiatal hernia
Dysphagia due to poor dentition
Dvt proph
-Lovenox
Code Status: Spoke to patient - he is adamant on not being intubated, understanding if his heart stops that requires intubation and therefore agrees to DNR/DNI with wants to pass peacefully if he decompensates to that point.
Anticipated Discharge: > 48 hours
Subjective/Interval History
-
Date of Service: December 21, 2024
no acute events, feeling better
Objective Data
-
Labs:
Laboratory Results
12/21/24 12/21/24
04:38 05:53
WBC 9.8
Hgb 12.5 L
Hct 37.6 L
Plt Count 222
APTT 92.5 H
Sodium Cancelled 135
Potassium Cancelled 4.3
Chloride Cancelled 102
Carbon Dioxide Cancelled 26
BUN Cancelled 33 H
Creatinine Cancelled 0.7
Glucose Cancelled 166 H
Calcium Cancelled 8.6
Total Bilirubin Cancelled 0.3
AST Cancelled 26
ALT Cancelled 32
Alkaline Phosphatase Cancelled 97
Vital Signs:
Vital Signs
Temp Pulse Resp BP Pulse Ox
97.8 F 79 18 120/73 100
12/21/24 11:40 12/21/24 11:19 12/21/24 11:19 12/21/24 11:00 12/21/24 11:19
I&O
12/20/24 12/21/24 12/22/24
06:59 06:59 06:59
Intake Total 255 / 270 2292 / 2367 745 / 745
Output Total 525 / 525 700 / 700
Balance -270 / -255 1592 / 1667 745 / 745
Review of Systems
-
History Source: Patient
All other systems: Not reviewed unless documented
Physical Exam
-
General: No Apparent Distress
HEENT: Moist Mucous Membranes
Respiratory: Clear to Auscultation
Cardiac: Regular Rhythm and S1/S2
GI: Soft, Nontender, Nondistended and Normal Bowel Sounds
Musculoskeletal: No Edema
Skin: Warm
Neuro: Awake, No Motor Deficits and Nonfocal/Grossly Intact
Psych: Calm
Data Reviewed
-
CT Scan: Report Reviewed by me
Ultrasound: Report Reviewed by me
Labs: Labs Reviewed by me
--- NOTE | 2024-12-21 14:54 | CM ---
CM following re: discharge planning.
Discussed in Rounds, reviewed pt's chart, met with pt. Per Rounds meeting, pt requires 10 L midflow Oxygen, continue supportive care'
Pt has been living at [facility] for the past 2 years, has no family around.
[facility] liaison confirmed that they will work to obtain a legal guardianship when pt returns back to [facility]. Pt is on bed hold, ambulates with a walker.
D/c plan: return back to [facility] for a LTC when medically stable.
CM will follow with discharge plan updates as hospitalization progresses
--- NOTE | 2024-12-21 16:00 | PTCARENOTE ---
Pt seen by physical therapy early afternoon. Pt is resting comfortably OOB in chair. O2 @ 6L MFNC...sats 100%. Call saavedra in reach. Possible downgrade to tele floor.
--- NOTE | 2024-12-21 19:52 | PTCARENOTE ---
On assessment pt OOB to chair, AAOx2-3 forgetful at times, Vpaced on the monitor, 6L midflow 99%, incontinent, call saavedra in reach
[2024-12-21] MEDS: DICLOFENAC 1% TOPICAL GEL TOPICAL (20:00)
[2024-12-21] MEDS: TOPROL XL 12.5 MG PO (20:01)
[2024-12-21] MEDS: AUGMENTIN 875 MG/125 MG 1 TABLET PO (20:01)
[2024-12-21] MEDS: 0.45%NACL IV (20:57)
--- NOTE | 2024-12-21 21:51 | PTCARENOTE ---
report given to RN, all belongings with pt, tele monitor applied on IVU
--- NOTE | 2024-12-21 22:37 | PTCARENOTE ---
Rec'd pt from ICU as tele transfer. Prev VS from ICU captured upon transfer.
Transfer VS 124/66 currently A paced 70 with sat 92% on 6 lit midflow. Lungs diminished with exp wheeze throughout. Pt assessed and resting at present with call saavedra within reach.
[2024-12-22] VITALS (15 sets, daily range): BP systolic 104–149; BP diastolic 64–92; BMI 29.4
--- NOTE | 2024-12-22 05:45 | PTCARENOTE ---
Pt awoken for am VS and labs. Pt crying when turned c/o feeling cold. abhishek care completed with soap and water new pure wick placed. skin intact
repositioned in bed to right side.
[2024-12-22 06:01] LABS: % Basophils 0.2 % (0-2); % Eosinophils 0.1 % (0-6); % Immature Granulocytes 1.4 % (0-0.5); % Lymphocytes 15.1 % (20.5-51.1); % Monocytes 13.2 % (1.7-9.3); Absolute Immature Granulocytes 0.2 10^3/uL (0-0.05); Absolute Lymphocytes 1.8 10^3/uL (1.2-3.4); Absolute Monocytes 1.6 10^3/uL (0.1-0.6); Absolute Neutrophils 8.5 10^3/uL (1.4-6.5); Hematocrit 43.7 % (39.0-52.0); Hemoglobin 14.2 g/dL (13.0-18.0); Mean Corp Hgb Conc. 32.5 g/dL (33.0-37.0); Mean Corpuscular Hgb 29.1 pg (27.0-31.0); Mean Corpuscular Volume 89.5 fL (80.0-94.0); Mean Platelet Volume 10.7 fL (7.4-10.4); Nucleated Red Blood Cells % 0 % (-); Platelet Count 254 10^3/uL (130-400); Red Blood Cell Count 4.88 10^6/uL (4.70-6.10); White Blood Cell Count 12.1 10^3/uL (4.8-10.8)
[2024-12-22 06:07] LABS: APTT 33.5 Sec (23.4-35.0)
[2024-12-22 07:15] LABS: ALT (SGPT) 35 U/L (0-50); AST (SGOT) 27 U/L (17-59); Albumin 3.7 g/dl (3.5-5.0); Alkaline Phosphatase 100 U/L (38-126); Blood Urea Nitrogen 24 mg/dl (9-20); Calcium 8.6 mg/dl (8.4-10.2); Carbon Dioxide 21 mmol/L (22-30); Chloride 104 mmol/L (98-107); Estimated Creatinine Clearance 80 ml/min; Glucose 103 mg/dl (70-99); Potassium 4.2 mmol/L (3.5-5.1); Sodium 140 mmol/L (135-145); Total Bilirubin 0.7 mg/dl (0.2-1.3); Total Protein 6.6 g/dl (6.3-8.2); eGFR > 60.00
[2024-12-22] MEDS: PULMICORT 0.5 MG INH ×2 (07:29→20:25)
[2024-12-22] MEDS: DUONEB 3 ML INH ×4 (07:29→20:25)
[2024-12-22] MEDS: AUGMENTIN 875 MG/125 MG 1 TABLET PO ×2 (10:24→21:07)
[2024-12-22] MEDS: DELTASONE 40 MG PO (10:24)
[2024-12-22] MEDS: NEURONTIN 200 MG PO ×3 (10:25→21:07)
[2024-12-22] MEDS: THERAGRAN 1 TABLET PO (10:25)
[2024-12-22] MEDS: ZOLOFT 25 MG PO (10:25)
[2024-12-22] MEDS: TOPROL XL 12.5 MG PO ×2 (10:25→21:07)
[2024-12-22] MEDS: LIPITOR 20 MG PO (10:25)
[2024-12-22] MEDS: DICLOFENAC 1% TOPICAL GEL 2 GRAM TOPICAL ×2 (10:26→21:07)
[2024-12-22] MEDS: FLUSH (NSS) 1 FLUSH IV (10:27)
[2024-12-22] MEDS: LOVENOX 90 MG SC ×2 (10:29→21:08)
--- NOTE | 2024-12-22 10:47 | W.PN.CARDCBS ---
Addendum entered and electronically signed by Clem Bailey MD 12/22/24 17:53:
I saw and examined the patient.
The Geothermal Sheet Metal Worker's note was reviewed and I agree with the note.
Comment: Briefly, 89-year-old man with past medical history of DVT/PE presenting with recurrent pulmonary embolism
CTA suggestive of right heart strain
Troponin was found to be elevated to 0.06 and proBNP greater than 6000�suspect this is secondary to PE/RV strain
Transthoracic echocardiogram was technically difficult but did not show elevated pulmonary pressures
Currently being treated with Lovenox, will defer treatment to primary team
We will sign off, please recall as needed
He should follow-up with primary tooth clerk after discharge
Original Note:
Today's Communication / Plan
-
Continue anticoagulation per pulmonary
Continue Toprol, may be able to resume amlodipine today as BP has been stable.
Text sent to device rep requesting interrogation. Waiting to hear back.
Impression / Plan
-
Primary Credit Card Associate: Dr. Valentine of [facility]
Assessment:
Presentation with SOB
Acute on chronic hypoxic respiratory failure, typically on 2-3 L NC, currently on high flow O2
Extensive B/L PE
R heart strain by CT
Elevated troponin
Concern for acute CHF
History of DVT/PE 09/2022, previously on eliquis, appears stopped 10/2024
History of L hip fracture s/p repair 04/2022
CAD with [place] s/p PCI x2 2006 at [facility], details unknown
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
HTN
HLD
COPD
Dementia
Chronic neuropathy
Anxiety/depression
ECHO 09/26/2022: EF 55 to 60%, stage II diastolic dysfunction, mildly dilated left atrium, mild with peak/mean gradients 19/13 mmHg, DARIO 1.5 cm�, mild AR
Echo 12/19/2024: EF 50-55%, trace MR, mild to moderate with peak/mean gradients 21/13 mmHg, DARIO 1.3cm2, trace AR, mild TR, estimated PAP 35 mmHg, aortic root mildly dilated, 4.0 at sinus of Valsalva
LE US: Acute deep venous thrombosis of the right lower extremity, as detailed above, in this patient with current pulmonary embolism. 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
Plan:
-Presented with SOB. Admitted with extensive b/l PE and right heart strain. Both R and L DVT noted on LE US.
-Previously on Eliquis, however this was stopped 10/2024. Now on lovenox 90mg Q12H. Continue AC per primary service/pulmonology.
-Echo 12/19 with preserved EF and mild-moderate as noted above.
-PPM interrogation requested w/ device rep. Waiting to hear back.
-Troponin elevation noted. Suspect nonischemic myocardial injury in the setting of large PE. No chest pain noted. He has remote history of CAD with stents in the setting of [place], details unknown.
-Continue Toprol 12.5mg BID. Home Imdur and amlodipine remain on hold due to hypotension. Likely can resume amlodipine today as BP has been stable.
-Telemetry stable overnight.
-Continue abx per primary service for COPD, possible pneumonia.
-Follow up with primary tooth clerk at discharge.
HPI: Patient is an 89 yo M resident of [facility] with PMH of CAD with [place] in 2006 with PCI x2 at [facility] further details unknown, HTN, HLD, COPD, chronic hypoxic respiratory failure on 2-3L NC at baseline, alternating BBB s/p Biotronik DC PPM 2021.
He has history of DVT/PE diagnosed 09/2022 post L hip replacement 05/2022 and was started on eliquis. As of 04/2023 he was still on eliquis 5mg BID by [facility] records. Appears his eliquis was stopped 10/2024. He reports worsening SOB over the last 3
days with hypoxia and found to have large B/L PE with evidence of R heart strain by CT. Trop 0.061. Patient is a poor historian. Cardiology consulted for evaluation. He is followed by ATC as OP.
Progress Note - Credit Card Associate
Subjective
Date of Service: December 22, 2024
No complaints.
Objective
Labs:
12/22/24 05:31
12/22/24 05:31
Labs
Hgb 14.2 g/dL (13.0-18.0) 12/22/24 05:
Hct 43.7 % (39.0-52.0) 12/22/24 05:
Plt Count 254 10^3/uL (130-400) 12/22/24 05:
PT 16.2 Sec (11.4-14.6) H 12/19/24 18:11
PT Cancelled 12/19/24 18:11
INR 1.27 12/19/24 18:11
INR Cancelled 12/19/24 18:11
APTT 33.5 Sec (23.4-35.0) 12/22/24 05:31
Sodium 140 mmol/L (135-145) 12/22/24 05:31
Potassium 4.2 mmol/L (3.5-5.1) 12/22/24 05:31
BUN 24 mg/dl (9-20) H 12/22/24 05:31
Creatinine 0.6 mg/dL (0.7-1.3) L 12/22/24 05:31
Glucose 103 mg/dl (70-99) H 12/22/24 05:31
Vital Signs and I&O:
Vital Signs
Temp Pulse Resp BP Pulse Ox
97.9 F 73 18 124/65 91
12/22/24 07:15 12/22/24 08:00 12/22/24 07:30 12/22/24 08:00 12/22/24 08:00
Vital Signs
Temp Pulse Resp BP Pulse Ox
97.9 F 73 18 124/65 91
12/22/24 07:15 12/22/24 08:00 12/22/24 07:30 12/22/24 08:00 12/22/24 08:00
Intake & Output
12/20/24 12/21/24 12/22/24 12/23/24
06:59 06:59 06:59 06:59
Intake Total 255 / 270 2292 / 2367 745 / 745
Output Total 525 / 525 700 / 700 250 / 250
Balance -270 / -255 1592 / 1667 495 / 495
Physical Exam
Physical Exam
GEN: Awake, alert, sitting up in bed
HEENT: supple, anicteric, mmm
LUNGS: expiratory wheezes b/l, no rhonchi
CV: Reg, S1/S2, no murmur
EXT: No clubbing or cyanosis, trace edema
NEURO: Gross non-focal
SKIN: Warm, dry, no rash
--- NOTE | 2024-12-22 11:21 | W.PN.PUL3 ---
Today's Communication / Plan
-
Continue Lovenox for today. Transition to oral anticoagulants in the next 24 hours
Continue nebulizer Pulmicort/DuoNeb while in the hospital
Restart inhaler upon dc
Prednisone taper decrease by 10 mg every 48 hours to off
Complete -7 days of antibiotic
Incentive spirometry
Wean off oxygen as able, currently 6 L mid flow.
Assessment
-
Impression: The patient is a 89 year-old male with a known previous PE/DVT history in 2001 who presented ER on 12/19 complaining from worsening shortness of breath and cough since last 2-3 days. He was obtained PE study which showed extensive
bilateral pulmonary emboli, suggestion of right heart strain and his chest X Ray showed interstitial changes and large hiatal hernia. The patient was started on PE protocol with heparin drip with APTT follow-up. His ECHO showed normal left
ventricular systolic function with EF at 50 -55%, and diastolic function: To be evaluated due to A-fib. The patient was admitted to ICU for close follow-up/monitoring. PERT team did assess the patient for a possible percutaneous intervention and
it was decided to continue with heparin drip. The patient is clinically improved with heparin drip and his high flow oxygen was tapered at 10 L his morning on 12/21. Because patient maintaining his saturation and vitals stable, it will be discussed
with the hospitalist team to transfer the patient to telemetry today.
Conditions present prior to admission
History of DVT left lower extremity, PE, September 2022- hospitalized at [facility]-Was not followed by pulmonary, Thought to be provoked per hospitalist -Off anticoagulation at this time
History of left hip fracture, ORIF May 2022
Aortic stenosis per echocardiogram 2021, valve area 1.5 cm�
History of pacemaker
Hypertension/hyperlipidemia
Chronic neuropathy
Suspected COPD
Suspected interstitial lung disease
Dementia per records
long-term resident DNR
Pulmonary now following since 12/22/2024 for hypoxemia/pulmonary embolism and COPD exacerbation.
-
#Acute Bilateral PE
-Chest CT on 12/19: Extensive bilateral pulmonary emboli+positive RV strain
-Mildly elevated troponin, proBNP-likely due to type II MA secondary to PE
-Continue enoxaparin Q12H for additional 24 hours. We can transition to oral anticoagulants then-likely will require lifelong given severity of clot and recurrent.
-PERT team decided to hold on percutaneous intervention-patient's condition improving-no plan for thrombolytic treatment
Clinically improved. 12/22/2024
-Patient seems comfortable in terms of respiratory distress-initially on high flow oxygen. Currently on mid flow oxygen 6 L- 12/22/2024.
Will need home oxygen assessment prior to discharge.
-
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
-Increase activity as able
#COPD-possible exacerbation component. expiratory wheezing bilaterally on admission.
-Per chart review, 2 L supplementary oxygen at baseline , Wean back to baseline as able, currently 6L and 97%
Still with a mild bronchospasm on 12/22
-Switched empiric antibiotics (azithromycin + ceftriaxone) to Augmentin due possible PNA complete total 5-7 days.
-Afebrile without leukocytosis On admission.
-Aspiration precautions (large hiatal hernia was noted)
-Nebulizer budesonide/DuoNebs [id number] while in the hospital.
Usually on ANORO- restart upon DC
-Prednisone taper 40 mg and decrease by 10 mg every 48 hours to off.
-Encoraged IS
-
Recommend ongoing outpatient pulmonary follow-up. He does not follow-up with pulmonary locally. Info will be left on chart
-
DNR status noted.
Subjective Data
-
Date of Service:
Date of Service: December 22, 2024
Chief Complaint: Pulmonary Follow Up (Acute submassive pulmonary embolism/DVT)
Subjective:
No new complaints
Tolerating anticoagulation without bleeding
Remains on supplemental
Review of Systems
Cardiopulmonary: Dyspnea, Dyspnea on Exertion and Cough
Objective Data
Data Reviewed
Vital Signs / I&O / Oxygen:
Vital Signs
Temp Pulse Resp BP Pulse Ox
97.9 F 73 18 124/65 91
12/22/24 07:15 12/22/24 08:00 12/22/24 07:30 12/22/24 08:00 12/22/24 08:00
Intake and Output
12/21/24 12/22/24 12/23/24
06:59 06:59 06:59
Intake Total 2292 / 2367 745 / 745
Output Total 700 / 700 250 / 250
Balance 1592 / 1667 495 / 495
SaO2 91
Nasal Cannula flow liters per 6
minute
Physical Exam
HEENT: Normocephalic
Cardiovascular: S1-S2
Respiratory: Wheeze (expiratory bilateral) and Non-Labored Respirations
GI: Soft and Non Distended
Neurology: Awake, Alert and No Motor Deficits
Skin: Warm
Labs/Micro/Reports
Lab Data
12/22/24 05:31
12/22/24 05:31
Laboratory Results
12/22/24
05:31
APTT 33.5
Microbiology
12/19/24 17:07 Nose MRSA Screen - Final
No Methicillin Resistant Staphylococcus aureus isolated.
12/19/24 09:48 Nasal Swab Influenza Types A & B (REID) - Final
Negative for Influenza A & B, NAAT
Negative results must be combined with clinical observations
and patient history.
Nucleic Acid Amplification test (NAAT)performed on the
[employer] platform.
--- NOTE | 2024-12-22 11:24 | PTCARENOTE ---
Received patient this morning resting in bed on 6L mid flow oxygen. Patient is very hard of hearing but is oriented x 3 and able to make his needs known. While assessing him this morning he became very tearful about his living situation and states
that he has no family. Took all of his medications whole in apple sauce, tolerated lovenox shot. Call saavedra in reach, bed alarm in place.
--- NOTE | 2024-12-22 14:46 | CM ---
Reviewed chart. Mr. Aguayo was transferred to [facility]. Met with KatharinaMirtha Dede to review discharge plans. He states prior to admission he resides at [facility]. He states he has been there for two years. He states prior to admission he
was able to ambulate with the walker and also uses a wheelchair. He states he can dress himself. Telephone call to [facility] Liaison, to confirm they will accept back when medically stable. [facility] States they will accept back.
Medically work-up in progress. The discharge plan is to return to [facility] when medically stable.
--- NOTE | 2024-12-22 15:57 | W.PN.HOSP.TC ---
Addendum entered and electronically signed by Josef Gibson MD 12/22/24 17:19:
COPD with acute exacerbation
Acute on chronic HFpEF was present on admission and is now resolved
Acute pulmonary embolism with cor pulmonale
Original Note:
Today's Communication/Plan
-
wean o2
pred taper
abx
switch to eliquis tomorrow
Assessment / Plan
Assessment / Plan
Physical Exam
General: Comfortable and Conversant; No Pain or Fever
HEENT: NormoCephalic, Anicteric, Moist mucous membranes and Oxygen (high flow nc)
Respiratory: Wheezes (ep bilat ) and Rhonchi (RLL )
Cardiac: S1/S2, Regular Rhythm and JVD; No Murmur, Rub, Gallop or Peripheral Edema
Breast: Deferred by me
GI: Soft, Non Distended, Normal Bowel Sounds, and No Hepatosplenomegaly
Rectal: Deferred by Provider
Genito-urinary: Deferred by me
Musculoskeletal: No Clubbing, No Cyanosis and No Edema
Skin: Warm and Dry; No Rash
Neuro: AO x 3, Nonfocal/grossly intact, Cranial Nerves Intact; No Slurred Speech, Facial Droop or Tremors
Psych: Calm
#Acute Hypoxic Respiratory Failure 2/2 to PE and COPD exacerbation +/- PNA
#Extensive bilateral PE
#B/l DVT
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
-ECHO with 50-55%;
-Pulmonary on board
-HFNC,weaned to 6L; Goal O2>92%
-Conservative therapy after discussion with pulmonary - hep ggt - cont lovenox - switch to oral anticoag tomorrow
-abx - 7 day course
#COPD exacerbation
-PE and possible pneumonia
steroids- Prednisone taper decrease by 10 mg every 48 hours to off
- 7 day abx
#Pneumonia
-cont abx x 7 days
#Hypotension/HTN/benign
-Hold isosorbide 30 mg daily
-restart metoprolol succinate low dose - advance as needed - home dose 25 mg daily
#Chronic heart failure history preserved EF
I/O,, daily weight
-does not appear to be in acute overload
#Hx of lower extremity DVT/PE 10/05/2022
-This was treated with Eliquis Unsure when Eliquis was stopped
#Type II [place] secondary to PE
#Hx troponin elevation January 2023 with peak 0.062
Non ischemic myocardial injury
#COPD mild/m�no acute exacerbation
#Chronic hypoxic respiratory failure on chronic 2 to 3 L baseline
cont enoro elipta
-duonebs
#CAD s/p stent
-cont Lipitor 20 mg hs HOLD BB due to hypotension
#Pacemaker hx
#HLD
cont cont Lipitor 20 mg hs
#Chronic Neuropathy
- cont gabapentin , Tramadol prn mod pain
# Gastric Muscle spasms
cont dicylomine 20 mg tid
#BPH
Monitor I/o
-Bladder scan protocol
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
OTHER PMH:
aspiration pneumonitis
Fatty liver
Hiatal hernia
Dysphagia due to poor dentition
Dvt proph
-Lovenox
Code Status: Spoke to patient - he is adamant on not being intubated, understanding if his heart stops that requires intubation and therefore agrees to DNR/DNI with wants to pass peacefully if he decompensates to that point.
Anticipated Discharge: 24 - 48 hours
Subjective/Interval History
-
Date of Service: December 22, 2024
no acute events
Objective Data
-
Labs:
Laboratory Results
12/22/24
05:31
WBC 12.1 H
Hgb 14.2
Hct 43.7
Plt Count 254
APTT 33.5
Sodium 140
Potassium 4.2
Chloride 104
Carbon Dioxide 21 L
BUN 24 H
Creatinine 0.6 L
Glucose 103 H
Calcium 8.6
Total Bilirubin 0.7
AST 27
ALT 35
Alkaline Phosphatase 100
Vital Signs:
Vital Signs
Temp Pulse Resp BP Pulse Ox
97.8 F 83 20 135/81 100
12/22/24 15:21 12/22/24 15:22 12/22/24 15:21 12/22/24 15:22 12/22/24 15:22
I&O
12/21/24 12/22/24 12/23/24
06:59 06:59 06:59
Intake Total 2292 / 2367 745 / 745 720 / 720
Output Total 700 / 700 250 / 250
Balance 1592 / 1667 495 / 495 720 / 720
Review of Systems
-
History Source: Patient
All other systems: Not reviewed unless documented
Data Reviewed
-
CT Scan: Report Reviewed by me
Ultrasound: Report Reviewed by me
Labs: Labs Reviewed by me
[2024-12-23] VITALS (14 sets, daily range): BP systolic 118–185; BP diastolic 64–116; BMI 29.4
--- NOTE | 2024-12-23 03:00 | PTCARENOTE ---
Pt received at change of shift. NSR with BBB and first degree AVB on tele and occasional AV pacing with HR 70s-80s. Pt AAOx3 on assessment and very [employer]. Bed alarm activated for pt safety. POX 94-96% on 4L Midflow NC. Pt offers no complaints at
this time. Q2hr turns to prevent skin breakdown. Call saavedra within reach.
[2024-12-23 03:42] LABS: % Basophils 0.1 % (0-2); % Eosinophils 0.1 % (0-6); % Immature Granulocytes 1.9 % (0-0.5); % Lymphocytes 13.7 % (20.5-51.1); % Monocytes 14.3 % (1.7-9.3); % Neutrophils 69.9 % (42.2-75.2); Absolute Immature Granulocytes 0.2 10^3/uL (0-0.05); Absolute Lymphocytes 1.1 10^3/uL (1.2-3.4); Absolute Monocytes 1.2 10^3/uL (0.1-0.6); Absolute Neutrophils 5.8 10^3/uL (1.4-6.5); Hemoglobin 12.5 g/dL (13.0-18.0); Mean Corp Hgb Conc. 32.9 g/dL (33.0-37.0); Mean Corpuscular Hgb 29.1 pg (27.0-31.0); Mean Corpuscular Volume 88.4 fL (80.0-94.0); Mean Platelet Volume 10.3 fL (7.4-10.4); Nucleated Red Blood Cells % 0 % (-); Platelet Count 227 10^3/uL (130-400); Red Cell Dist. Width 14.3 % (11.5-14.5); White Blood Cell Count 8.3 10^3/uL (4.8-10.8)
[2024-12-23 04:09] LABS: ALT (SGPT) 31 U/L (0-50); AST (SGOT) 20 U/L (17-59); Albumin 3.5 g/dl (3.5-5.0); Alkaline Phosphatase 89 U/L (38-126); Blood Urea Nitrogen 21 mg/dl (9-20); Calcium 8.5 mg/dl (8.4-10.2); Carbon Dioxide 26 mmol/L (22-30); Chloride 103 mmol/L (98-107); Estimated Creatinine Clearance 68 ml/min; Glucose 156 mg/dl (70-99); Potassium 4.1 mmol/L (3.5-5.1); Sodium 139 mmol/L (135-145); Total Bilirubin 0.6 mg/dl (0.2-1.3); Total Protein 6.3 g/dl (6.3-8.2); eGFR > 60.00
[2024-12-23] MEDS: DUONEB 3 ML INH ×4 (08:22→19:08)
[2024-12-23] MEDS: PULMICORT 0.5 MG INH ×2 (08:22→19:08)
[2024-12-23] MEDS: TOPROL XL 12.5 MG PO ×2 (08:23→20:11)
[2024-12-23] MEDS: LIPITOR 20 MG PO (08:23)
[2024-12-23] MEDS: AUGMENTIN 875 MG/125 MG 1 TABLET PO ×2 (08:23→20:11)
[2024-12-23] MEDS: ZOLOFT 25 MG PO (08:24)
[2024-12-23] MEDS: DELTASONE 40 MG PO (08:24)
[2024-12-23] MEDS: THERAGRAN 1 TABLET PO (08:24)
[2024-12-23] MEDS: NEURONTIN 200 MG PO ×3 (08:24→22:23)
[2024-12-23] MEDS: DICLOFENAC 1% TOPICAL GEL 2 GRAM TOPICAL ×2 (08:29→20:11)
[2024-12-23] MEDS: LOVENOX 90 MG SC (10:27)
--- NOTE | 2024-12-23 10:34 | PTCARENOTE ---
patient received in bed, extremely [place], monitor shows AV paced. BP elevated. patient has purewick in place, inc. of urine. patient stated that he is wheelchair bound but able to walk with a walker but doesn't like to, will attempt to get patient OOB
to chair for lunch. patient lung witt coarse throughout on 4 L midflow,cough present but non productive. call saavedra within reach and patient able to call appropriately.
--- NOTE | 2024-12-23 15:13 | W.PN.HOSP.TC ---
Today's Communication/Plan
-
wean steroids tomorrow to 30mg
cont abx
switch to eliquis tonight
Assessment / Plan
Assessment / Plan
Physical Exam
General: Comfortable and Conversant; No Pain or Fever
HEENT: NormoCephalic, Anicteric, Moist mucous membranes and Oxygen (high flow nc)
Respiratory: Wheezes (ep bilat ) and Rhonchi (RLL )
Cardiac: S1/S2, Regular Rhythm and JVD; No Murmur, Rub, Gallop or Peripheral Edema
Breast: Deferred by me
GI: Soft, Non Distended, Normal Bowel Sounds, and No Hepatosplenomegaly
Rectal: Deferred by Provider
Genito-urinary: Deferred by me
Musculoskeletal: No Clubbing, No Cyanosis and No Edema
Skin: Warm and Dry; No Rash
Neuro: AO x 3, Nonfocal/grossly intact, Cranial Nerves Intact; No Slurred Speech, Facial Droop or Tremors
Psych: Calm
#Acute Hypoxic Respiratory Failure 2/2 to PE and COPD exacerbation +/- PNA
#Extensive bilateral PE
#B/l DVT
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
-ECHO with 50-55%;
-Pulmonary on board
-HFNC,weaned to 6L; Goal O2>92%
-Conservative therapy after discussion with pulmonary - hep ggt - lovenox - switch to oral anticoag tonight
-abx - 7 day course
#COPD exacerbation
-PE and possible pneumonia
steroids- Prednisone taper decrease by 10 mg every 48 hours to off
- 7 day abx
#Pneumonia
-cont abx x 7 days
#Hypotension/HTN/benign
-Hold isosorbide 30 mg daily
-restart metoprolol succinate low dose - advance as needed - home dose 25 mg daily
#Chronic heart failure history preserved EF
I/O,, daily weight
-does not appear to be in acute overload
#Hx of lower extremity DVT/PE 10/05/2022
-This was treated with Eliquis Unsure when Eliquis was stopped
#Type II [place] secondary to PE
#Hx troponin elevation January 2023 with peak 0.062
Non ischemic myocardial injury
#COPD mild/m�no acute exacerbation
#Chronic hypoxic respiratory failure on chronic 2 to 3 L baseline
cont enoro elipta
-duonebs
#CAD s/p stent
-cont Lipitor 20 mg hs HOLD BB due to hypotension
#Pacemaker hx
#HLD
cont cont Lipitor 20 mg hs
#Chronic Neuropathy
- cont gabapentin , Tramadol prn mod pain
# Gastric Muscle spasms
cont dicylomine 20 mg tid
#BPH
Monitor I/o
-Bladder scan protocol
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
OTHER PMH:
aspiration pneumonitis
Fatty liver
Hiatal hernia
Dysphagia due to poor dentition
Dvt proph
-Lovenox
Code Status: Spoke to patient - he is adamant on not being intubated, understanding if his heart stops that requires intubation and therefore agrees to DNR/DNI with wants to pass peacefully if he decompensates to that point.
Anticipated Discharge: 24 - 48 hours
Subjective/Interval History
-
Date of Service: December 23, 2024
no acute events
Objective Data
-
Labs:
Laboratory Results
12/23/24
03:01
WBC 8.3
Hgb 12.5 L
Hct 38.0 L
Plt Count 227
Sodium 139
Potassium 4.1
Chloride 103
Carbon Dioxide 26
BUN 21 H
Creatinine 0.7
Glucose 156 H
Calcium 8.5
Total Bilirubin 0.6
AST 20
ALT 31
Alkaline Phosphatase 89
Vital Signs:
Vital Signs
Temp Pulse Resp BP Pulse Ox
97.5 F 83 16 118/94 97
12/23/24 11:10 12/23/24 14:00 12/23/24 12:02 12/23/24 14:00 12/23/24 14:00
I&O
12/22/24 12/23/24 12/24/24
06:59 06:59 06:59
Intake Total 745 / 745 720 / 720
Output Total 250 / 250 400 / 400
Balance 495 / 495 320 / 320
Review of Systems
-
History Source: Patient
All other systems: Not reviewed unless documented
Physical Exam
-
General: No Apparent Distress
HEENT: Moist Mucous Membranes
Respiratory: Clear to Auscultation
Cardiac: Regular Rhythm and S1/S2
GI: Soft, Nontender, Nondistended and Normal Bowel Sounds
Musculoskeletal: No Edema
Skin: Warm
Neuro: Awake, No Motor Deficits and Nonfocal/Grossly Intact
Psych: Calm
Data Reviewed
-
CT Scan: Report Reviewed by me
Ultrasound: Report Reviewed by me
Labs: Labs Reviewed by me
--- NOTE | 2024-12-23 16:37 | W.PN.PUL3 ---
Today's Communication / Plan
-
Agree with transition to Eliquis, currently on 10 mg twice a day
Will require lifelong anticoagulation
Continue with Augmentin therapy, would discontinue 2/
Continue with nebulized therapy. Okay to resume Anoro at time of discharge
Oxygen assessment prior to discharge
Disposition efforts. Pulmonary follow-up recommendations left in chart
We will sign off. Please call with questions
Assessment
-
Impression: The patient is a 89 year-old male with a known previous PE/DVT history in 2001 who presented ER on 12/19 complaining from worsening shortness of breath and cough since last 2-3 days. He was obtained PE study which showed extensive
bilateral pulmonary emboli, suggestion of right heart strain and his chest X Ray showed interstitial changes and large hiatal hernia. The patient was started on PE protocol with heparin drip with APTT follow-up. His ECHO showed normal left
ventricular systolic function with EF at 50 -55%, and diastolic function: To be evaluated due to A-fib. The patient was admitted to ICU for close follow-up/monitoring. PERT team did assess the patient for a possible percutaneous intervention and
it was decided to continue with heparin drip. The patient is clinically improved with heparin drip and his high flow oxygen was tapered at 10 L his morning on 12/21. Because patient maintaining his saturation and vitals stable, it will be discussed
with the hospitalist team to transfer the patient to telemetry today.
Conditions present prior to admission
History of DVT left lower extremity, PE, September 2022- hospitalized at [facility]-Was not followed by pulmonary, Thought to be provoked per hospitalist -Off anticoagulation at this time
History of left hip fracture, ORIF May 2022
Aortic stenosis per echocardiogram 2021, valve area 1.5 cm�
History of pacemaker
Hypertension/hyperlipidemia
Chronic neuropathy
Suspected COPD
Suspected interstitial lung disease
Dementia per records
long-term resident DNR
Pulmonary now following since 12/22/2024 for hypoxemia/pulmonary embolism and COPD exacerbation.
-
#Acute Bilateral PE
-Chest CT on 12/19: Extensive bilateral pulmonary emboli+positive RV strain
-Mildly elevated troponin, proBNP-likely due to type II CT secondary to PE
-Okay to transition to Eliquis 10 mg twice a day, likely will require lifelong given severity of clot and recurrent.
-PERT team decided to hold on percutaneous intervention-patient's condition improving-no plan for thrombolytic treatment
Clinically improved. 12/22/2024
-Patient seems comfortable in terms of respiratory distress-initially on high flow oxygen. Currently on mid flow oxygen 6 L- 12/22/2024.
Will need home oxygen assessment prior to discharge.
Now weaned down to 2 L, this is encouraging
-
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
-Increase activity as able
#COPD-possible exacerbation component. expiratory wheezing bilaterally on admission.
-Per chart review, 2 L supplementary oxygen at baseline , Wean back to baseline as able, currently 6L and 97%
Still with a mild bronchospasm on 12/22
-Switched empiric antibiotics (azithromycin + ceftriaxone) to Augmentin due possible PNA complete total 5-7 days.
-Afebrile without leukocytosis On admission.
-Aspiration precautions (large hiatal hernia was noted)
-Nebulizer budesonide/DuoNebs [id number]-afcth while in the hospital.
Usually on ANORO- restart upon DC
-Prednisone taper 30 mg and decrease by 10 mg every 48 hours to off.
-Encoraged IS
-
Recommend ongoing outpatient pulmonary follow-up. He does not follow-up with pulmonary locally. Info will be left on chart
-
DNR status noted.
We will sign off. Please call with questions
Subjective Data
-
Date of Service:
Date of Service: December 23, 2024
Chief Complaint: Pulmonary Follow Up (Acute submassive pulmonary embolism/DVT)
Subjective:
Patient is much improved, oxygen weaned down to 2 L. He denies chest pain, cough, nausea, abdominal pain
Objective Data
Data Reviewed
Vital Signs / I&O / Oxygen:
Vital Signs
Temp Pulse Resp BP Pulse Ox
98.2 F 78 16 137/79 96
12/23/24 15:14 12/23/24 16:12 12/23/24 16:12 12/23/24 15:15 12/23/24 16:12
Intake and Output
12/22/24 12/23/24 12/24/24
06:59 06:59 06:59
Intake Total 745 / 745 720 / 720
Output Total 250 / 250 400 / 400
Balance 495 / 495 320 / 320
SaO2 96
Nasal Cannula flow liters per 3
minute
Physical Exam
General: Comfortable
HEENT: Normocephalic
Cardiovascular: S1-S2
Respiratory: Wheeze (n), Crackles (n), Rhonchi (n) and Non-Labored Respirations
GI: Soft and Non Distended
Neurology: Awake, Alert and No Motor Deficits
Skin: Warm, Good Color (n) and Cyanosis (n)
Labs/Micro/Reports
Lab Data
12/23/24 03:01
12/23/24 03:01
Microbiology
12/19/24 17:07 Nose MRSA Screen - Final
No Methicillin Resistant Staphylococcus aureus isolated.
[2024-12-23] MEDS: ELIQUIS 10 MG PO (20:11)
--- NOTE | 2024-12-23 21:39 | PTCARENOTE ---
Patient received at change of shift resting in the bed. Sinus rhythm with 1st degree AV block on strategic marketing specialist. 93-96% on 2L Midflow. Patient offers no complaints at this time. Plan of care discussed. Call saavedra within reach. Care ongoing.
[2024-12-24] VITALS (7 sets, daily range): BP systolic 127–166; BP diastolic 73–97; BMI 29.5
[2024-12-24 02:51] LABS: % Basophils 0.1 % (0-2); % Eosinophils 0.5 % (0-6); % Immature Granulocytes 2.3 % (0-0.5); % Lymphocytes 15.4 % (20.5-51.1); % Monocytes 11.8 % (1.7-9.3); % Neutrophils 69.9 % (42.2-75.2); Absolute Eosinophils 0.1 10^3/uL (0-0.7); Absolute Immature Granulocytes 0.2 10^3/uL (0-0.05); Absolute Lymphocytes 1.5 10^3/uL (1.2-3.4); Absolute Monocytes 1.1 10^3/uL (0.1-0.6); Absolute Neutrophils 6.6 10^3/uL (1.4-6.5); Hematocrit 39.5 % (39.0-52.0); Hemoglobin 13.1 g/dL (13.0-18.0); Mean Corp Hgb Conc. 33.2 g/dL (33.0-37.0); Mean Corpuscular Hgb 29.6 pg (27.0-31.0); Mean Corpuscular Volume 89.2 fL (80.0-94.0); Mean Platelet Volume 10.2 fL (7.4-10.4); Nucleated Red Blood Cells % 0 % (-); Platelet Count 254 10^3/uL (130-400); Red Blood Cell Count 4.43 10^6/uL (4.70-6.10); Red Cell Dist. Width 14.2 % (11.5-14.5); White Blood Cell Count 9.4 10^3/uL (4.8-10.8)
[2024-12-24 02:58] LABS: ALT (SGPT) 30 U/L (0-50); AST (SGOT) 20 U/L (17-59); Albumin 3.3 g/dl (3.5-5.0); Alkaline Phosphatase 85 U/L (38-126); Blood Urea Nitrogen 18 mg/dl (9-20); Calcium 8.9 mg/dl (8.4-10.2); Carbon Dioxide 27 mmol/L (22-30); Chloride 102 mmol/L (98-107); Estimated Creatinine Clearance 80 ml/min; Glucose 130 mg/dl (70-99); Sodium 137 mmol/L (135-145); Total Bilirubin 0.7 mg/dl (0.2-1.3); Total Protein 5.8 g/dl (6.3-8.2); eGFR > 60.00
[2024-12-24] MEDS: AUGMENTIN 875 MG/125 MG 1 TABLET PO ×2 (07:47→19:44)
[2024-12-24] MEDS: ELIQUIS 10 MG PO ×2 (07:47→19:44)
[2024-12-24] MEDS: TOPROL XL 12.5 MG PO ×2 (07:47→19:44)
[2024-12-24] MEDS: NEURONTIN 200 MG PO ×3 (07:48→22:18)
[2024-12-24] MEDS: ZOLOFT 25 MG PO (07:48)
[2024-12-24] MEDS: DELTASONE 30 MG PO (07:48)
[2024-12-24] MEDS: LIPITOR 20 MG PO (07:48)
[2024-12-24] MEDS: THERAGRAN 1 TABLET PO (07:48)
[2024-12-24] MEDS: DICLOFENAC 1% TOPICAL GEL 2 GRAM TOPICAL ×2 (07:49→19:44)
[2024-12-24] MEDS: DUONEB INH ×2 (08:25→20:54)
[2024-12-24] MEDS: PULMICORT INH ×2 (08:26→20:54)
[2024-12-24] MEDS: DUONEB 3 ML INH ×2 (13:19→16:22)
--- NOTE | 2024-12-24 14:46 | W.PN.HOSP.TC ---
Today's Communication/Plan
-
abx
steroids
eliquis
restart imdur
Assessment / Plan
Assessment / Plan
Physical Exam
General: Comfortable and Conversant; No Pain or Fever
HEENT: NormoCephalic, Anicteric, Moist mucous membranes and Oxygen (high flow nc)
Respiratory: Wheezes (ep bilat ) and Rhonchi (RLL )
Cardiac: S1/S2, Regular Rhythm and JVD; No Murmur, Rub, Gallop or Peripheral Edema
Breast: Deferred by me
GI: Soft, Non Distended, Normal Bowel Sounds, and No Hepatosplenomegaly
Rectal: Deferred by Provider
Genito-urinary: Deferred by me
Musculoskeletal: No Clubbing, No Cyanosis and No Edema
Skin: Warm and Dry; No Rash
Neuro: AO x 3, Nonfocal/grossly intact, Cranial Nerves Intact; No Slurred Speech, Facial Droop or Tremors
Psych: Calm
#Acute Hypoxic Respiratory Failure 12/24 to PE and COPD exacerbation +/- PNA
#Extensive bilateral PE
#B/l DVT
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
-ECHO with 50-55%;
-Pulmonary on board
-HFNC,weaned to 6L; Goal O2>92%
-Conservative therapy after discussion with pulmonary - hep ggt - lovenox - switched to oral anticoag 12/23
-abx - 7 day course - end date 12/26
#COPD exacerbation
-PE and possible pneumonia
steroids- Prednisone taper decrease by 10 mg every 48 hours to off
- 7 day abx - end date 12/26
- Continue with nebulized therapy. Okay to resume Anoro at time of discharge
-pulm outpt f/u
#Pneumonia
-cont abx x 7 days
-end date 12/26
#Hypotension/HTN/benign
-resume isosorbide 30 mg daily
-restart metoprolol succinate low dose - advance as needed - home dose 25 mg daily
-Hold amlodipine
#Chronic heart failure history preserved EF
I/O,, daily weight
-does not appear to be in acute overload
#Hx of lower extremity DVT/PE 10/05/2022
-This was treated with Eliquis Unsure when Eliquis was stopped
#Type II [place] secondary to PE
#Hx troponin elevation January 2023 with peak 0.062
Non ischemic myocardial injury
#COPD mild/m�no acute exacerbation
#Chronic hypoxic respiratory failure on chronic 2 to 3 L baseline
cont enoro elipta
-duonebs
#CAD s/p stent
-cont Lipitor 20 mg hs HOLD BB due to hypotension
#Pacemaker hx
#HLD
cont cont Lipitor 20 mg hs
#Chronic Neuropathy
- cont gabapentin , Tramadol prn mod pain
# Gastric Muscle spasms
cont dicylomine 20 mg tid
#BPH
Monitor I/o
-Bladder scan protocol
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
OTHER PMH:
aspiration pneumonitis
Fatty liver
Hiatal hernia
Dysphagia due to poor dentition
Dvt proph
-Lovenox
Code Status: Spoke to patient - he is adamant on not being intubated, understanding if his heart stops that requires intubation and therefore agrees to DNR/DNI with wants to pass peacefully if he decompensates to that point.
Anticipated Discharge: Within 24 hours
Subjective/Interval History
-
Date of Service: December 24, 2024
No acute events weaned to 2 L
Objective Data
-
Labs:
Laboratory Results
12/24/24
02:32
WBC 9.4
Hgb 13.1
Hct 39.5
Plt Count 254
Sodium 137
Potassium 4.0
Chloride 102
Carbon Dioxide 27
BUN 18
Creatinine 0.6 L
Glucose 130 H
Calcium 8.9
Total Bilirubin 0.7
AST 20
ALT 30
Alkaline Phosphatase 85
Vital Signs:
Vital Signs
Temp Pulse Resp BP Pulse Ox
98.6 F 81 20 163/93 97
12/24/24 11:31 12/24/24 14:00 12/24/24 13:20 12/24/24 11:31 12/24/24 13:20
I&O
12/23/24 12/24/24 12/25/24
06:59 06:59 06:59
Intake Total 720 / 720 120 / 120
Output Total 400 / 400 550 / 550
Balance 320 / 320 -430 / -430
Review of Systems
-
History Source: Patient
All other systems: Not reviewed unless documented
Physical Exam
-
General: No Apparent Distress
HEENT: Moist Mucous Membranes
Respiratory: Clear to Auscultation
Cardiac: Regular Rhythm and S1/S2
GI: Soft, Nontender, Nondistended and Normal Bowel Sounds
Musculoskeletal: No Edema
Skin: Warm
Neuro: Awake, No Motor Deficits and Nonfocal/Grossly Intact
Psych: Calm
Data Reviewed
-
CT Scan: Report Reviewed by me
Ultrasound: Report Reviewed by me
Labs: Labs Reviewed by me
[2024-12-24] MEDS: BENTYL 20 MG PO ×2 (15:45→22:18)
[2024-12-24] MEDS: TESSALON PERLES 200 MG PO (17:13)
--- NOTE | 2024-12-24 17:14 | PTCARENOTE ---
patient coughing when repositioned, lung witt sound looser, remains on 2 LNC, Tessalon pearls po given as ordered.
[2024-12-24] MEDS: MUCINEX 600 MG PO (19:44)
--- NOTE | 2024-12-24 20:50 | PTCARENOTE ---
Patient received at change of shift resting in the bed. Patient did not offer any specific complaints. Vpaced on monitoring manager. Remains on 2L NC, oxygen saturation 93%. Deep breathing encouraged. Plan of care discussed. Call saavedra within reach.
Bed alarm armed. Care ongoing.
[2024-12-25] VITALS (11 sets, daily range): BP systolic 118–162; BP diastolic 66–97; PULSE 70; O2SAT 90; BMI 29.4
[2024-12-25] MEDS: TYLENOL 650 MG PO (00:54)
[2024-12-25 04:23] LABS: % Basophils 0.1 % (0-2); % Eosinophils 1.9 % (0-6); % Immature Granulocytes 1.8 % (0-0.5); % Lymphocytes 16.2 % (20.5-51.1); Absolute Eosinophils 0.2 10^3/uL (0-0.7); Absolute Immature Granulocytes 0.2 10^3/uL (0-0.05); Absolute Lymphocytes 1.6 10^3/uL (1.2-3.4); Absolute Monocytes 1.2 10^3/uL (0.1-0.6); Absolute Neutrophils 6.8 10^3/uL (1.4-6.5); Hematocrit 40.8 % (39.0-52.0); Hemoglobin 13.1 g/dL (13.0-18.0); Mean Corp Hgb Conc. 32.1 g/dL (33.0-37.0); Mean Corpuscular Volume 90.5 fL (80.0-94.0); Mean Platelet Volume 10.3 fL (7.4-10.4); Nucleated Red Blood Cells % 0 % (-); Platelet Count 281 10^3/uL (130-400); Red Blood Cell Count 4.51 10^6/uL (4.70-6.10); Red Cell Dist. Width 14.5 % (11.5-14.5)
[2024-12-25 04:53] LABS: ALT (SGPT) 35 U/L (0-50); AST (SGOT) 27 U/L (17-59); Albumin 2.9 g/dl (3.5-5.0); Alkaline Phosphatase 80 U/L (38-126); Blood Urea Nitrogen 21 mg/dl (9-20); Calcium 8.8 mg/dl (8.4-10.2); Carbon Dioxide 27 mmol/L (22-30); Chloride 102 mmol/L (98-107); Estimated Creatinine Clearance 68 ml/min; Glucose 100 mg/dl (70-99); Potassium 4.2 mmol/L (3.5-5.1); Sodium 132 mmol/L (135-145); Total Bilirubin 0.7 mg/dl (0.2-1.3); Total Protein 5.3 g/dl (6.3-8.2); eGFR > 60.00
[2024-12-25] MEDS: PULMICORT 0.5 MG INH ×2 (08:29→20:37)
[2024-12-25] MEDS: DUONEB 3 ML INH ×3 (08:29→20:37)
[2024-12-25] MEDS: TOPROL XL 12.5 MG PO ×2 (08:47→19:29)
[2024-12-25] MEDS: MUCINEX 600 MG PO ×2 (08:47→19:29)
[2024-12-25] MEDS: AUGMENTIN 875 MG/125 MG 1 TABLET PO ×2 (08:47→19:28)
[2024-12-25] MEDS: THERAGRAN 1 TABLET PO (08:47)
[2024-12-25] MEDS: ELIQUIS 10 MG PO ×2 (08:47→19:29)
[2024-12-25] MEDS: DICLOFENAC 1% TOPICAL GEL 2 GRAM TOPICAL ×2 (08:48→19:28)
[2024-12-25] MEDS: DELTASONE 30 MG PO (08:48)
[2024-12-25] MEDS: NEURONTIN 200 MG PO ×3 (08:48→20:55)
[2024-12-25] MEDS: ZOLOFT 25 MG PO (08:48)
[2024-12-25] MEDS: LIPITOR 20 MG PO (08:48)
[2024-12-25] MEDS: BENTYL 20 MG PO ×3 (08:48→20:55)
[2024-12-25] MEDS: IMDUR (EXTENDED RELEASE) 30 MG PO (08:48)
--- NOTE | 2024-12-25 09:21 | W.PN.HOSP.TC ---
Today's Communication/Plan
-
dispo planning
Assessment / Plan
Assessment / Plan
A/P:
# Acute on chronic Hypoxic Respiratory Failure 2/2 to PE and COPD exacerbation +/- PNA
# Extensive bilateral PE
# B/L DVT
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
HFNC weaned to 2L (baseline)
ECHO with 50-55%;
Conservative therapy after discussion with pulmonary- hep ggt -> Lovenox -> switched to oral anticoag Eliquis 12/23
abx Amoxicillin started, plan for 7 day course- end date 12/26
Pulmonary on board
# COPD exacerbation
# Chronic hypoxic respiratory failure on 2 to 3 L baseline
steroids Prednisone taper decrease by 10 mg every 48 hours to off
Continue with nebulized therapy. Okay to resume Anoro at time of discharge
pulm outpt f/u
# CAP
abx Amoxicillin started, plan for 7 day course- end date 12/26
# HTN benign
resumed isosorbide 30 mg daily
restarted metoprolol succinate low dose 12.5 BID (home dose 25 mg daily)
Resume JUNIOR SOFTWARE DEVELOPER amlodipine
# Chronic heart failure history preserved EF
I/O, daily weight
cont JUNIOR SOFTWARE DEVELOPER Toprol
# Hx of lower extremity DVT/PE 10/05/2022
This was treated with Eliquis
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
# Hx troponin elevation January 2023 with peak 0.062
# Non ischemic myocardial injury
# CAD s/p stent
cont Lipitor 20 mg
# Pacemaker hx
# HLD
Lipitor 20 mg HS
# Chronic Neuropathy
cont gabapentin, Tramadol prn mod pain
# Gastric muscle spasm
Cont dicylomine 20 mg tid
# BPH
Monitor I/o
Bladder scan protocol
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
Outpt follow up
OTHER PMH:
aspiration pneumonitis
Fatty liver
Hiatal hernia
Dysphagia due to poor dentition
DVT proph: now on Eliquis
Code Status: DNR DNI per pt
Dispo: SNF per PT OT eval
called son to update, call not answered
Anticipated Discharge: 24 - 48 hours
Subjective/Interval History
-
Date of Service: December 25, 2024
Objective Data
-
Labs:
Laboratory Results
12/25/24
03:51
WBC 10.0
Hgb 13.1
Hct 40.8
Plt Count 281
Sodium 132 L
Potassium 4.2
Chloride 102
Carbon Dioxide 27
BUN 21 H
Creatinine 0.7
Glucose 100 H
Calcium 8.8
Total Bilirubin 0.7
AST 27
ALT 35
Alkaline Phosphatase 80
Vital Signs:
Vital Signs
Temp Pulse Resp BP Pulse Ox
36.8 C 70 16 159/86 92
12/25/24 07:50 12/25/24 09:00 12/25/24 08:31 12/25/24 08:47 12/25/24 08:31
I&O
12/24/24 12/25/24 12/26/24
06:59 06:59 06:59
Intake Total 120 / 120
Output Total 550 / 550 550 / 550
Balance -430 / -430 -550 / -550
Review of Systems
-
All other systems: Reviewed and negative
Physical Exam
-
General: Well Developed, Well Nourished, Comfortable, Respiratory Distress (chronic), Conversant and Appears Chronically Ill
HEENT: Hearing Impaired and Oxygen (2L NC)
Respiratory: Clear to Auscultation and Non Labored Respirations; Negative Accessory Resp Muscle Use
Cardiac: Regular Rhythm and S1/S2
GI: Soft, Nontender, Nondistended and Normal Bowel Sounds
Skin: Warm
Neuro: Awake and Alert
Psych: Calm and Intact Judgement/Insight (somewhat)
Data Reviewed
-
Labs: Labs Reviewed by me
[2024-12-25] MEDS: NORVASC 2.5 MG PO (11:12)
[2024-12-25] MEDS: DUONEB INH (11:51)
--- NOTE | 2024-12-25 12:49 | CM ---
Chart reviewed. Patient is a skilled nursing resident at [facility], ambulates with a RW and also uses a wheelchair. Patient currently on O22l. Patient has a bed hold. Plan is for the patient to return to [facility] when medically stable. CM
to follow
--- NOTE | 2024-12-25 12:53 | PTCARENOTE ---
received patient this am in bed, extremely EMMONAK, monitor shows Vpaced, BP elevated. patient takes pills in applesauce, carmencita. well. lung witt rhonchi thruout, on 2 LNC, o2 sat 95 % on 2LNC. able to ambulate to chair with assist x 1 with PT, carmencita. well.
--- NOTE | 2024-12-25 15:00 | PTCARENOTE ---
returned patient back to bed with assist of 2, able to ambulate. depends wet, changed patient and lathered with cream. skin intact. patient has harsh cough able to cough up clear mucous in tissue. patient remains on 2 LNC, o2 sat 95%.
--- NOTE | 2024-12-25 15:35 | PTCARENOTE ---
Addendum entered by Aida Camejo RN 12/25/24 16:02:
to 4th floor via stretcher accompanied by vol. staff.
Original Note:
report was called to the 4th floor, patient is going to 407 bed 2. patient is receiving breathing treatment right now then will give his 1600 medications before patient is transferred. patient doesn't have personal belongings with him, only supplies
we gave him here and creams.
[2024-12-26 03:33] VITALS: BP 150/86
[2024-12-26 06:00] VITALS: BMI 28.9
[2024-12-26 07:00] VITALS: BP 164/97
[2024-12-26] MEDS: DUONEB 3 ML INH ×2 (07:09→11:08)
--- NOTE | 2024-12-26 07:51 | PN.CDI ---
CDI
- -
CDI:
Physician Documentation Request
Admit Date: 12/19/24 13:35
Dear Doctor Chilo,
Please review the following and provide your response in the progress notes.
Clinical Indicators:
- 2/3 PN indicates both:
- Type 2 AL 2/2 PE
- Non ischemic myocardial injury
- 12/22 Cardiology 'Suspect nonischemic myocardial injury in the setting of large PE'
- 12/25 Pulmonary 'Mildly elevated troponin, proBNP-likely due to type II AL secondary to PE'
Laboratory Tests
12/19/24
09:26
Troponin I 0.061 H*
Please clarify the following regarding the documented elevated troponin:
Type 2 AL 2/2 PE
Non ischemic myocardial injury
Other (please specify)
Use of terms such as suspected, likely, concern for, or probable (associated with a specific diagnosis that is being evaluated, monitored, or treated as if it exists) are acceptable and can be coded in the inpatient setting, when documented at the
time of discharge.
Thank you,
Bertha Zavala RN
CDI Specialist
Please use your independent medical judgment in providing your response.
[2024-12-26 08:24] LABS: Hematocrit 42.4 % (39.0-52.0); Hemoglobin 13.7 g/dL (13.0-18.0); Mean Corp Hgb Conc. 32.3 g/dL (33.0-37.0); Mean Corpuscular Hgb 29.1 pg (27.0-31.0); Platelet Count 324 10^3/uL (130-400); Red Blood Cell Count 4.71 10^6/uL (4.70-6.10); Red Cell Dist. Width 14.6 % (11.5-14.5); White Blood Cell Count 9.9 10^3/uL (4.8-10.8)
[2024-12-26 08:45] LABS: Blood Urea Nitrogen 20 mg/dl (9-20); Calcium 8.4 mg/dl (8.4-10.2); Carbon Dioxide 29 mmol/L (22-30); Chloride 100 mmol/L (98-107); Estimated Creatinine Clearance 68 ml/min; Glucose 92 mg/dl (70-99); Magnesium 2.3 mg/dl (1.6-2.3); Potassium 4.2 mmol/L (3.5-5.1); Sodium 136 mmol/L (135-145); eGFR > 60.00
[2024-12-26] MEDS: TOPROL XL 12.5 MG PO (09:02)
[2024-12-26] MEDS: ZOLOFT 25 MG PO (09:05)
[2024-12-26] MEDS: NEURONTIN 200 MG PO (09:05)
[2024-12-26] MEDS: ELIQUIS 10 MG PO (09:05)
[2024-12-26] MEDS: BENTYL 20 MG PO (09:06)
[2024-12-26] MEDS: DELTASONE 20 MG PO (09:06)
[2024-12-26] MEDS: THERAGRAN 1 TABLET PO (09:06)
[2024-12-26] MEDS: LIPITOR 20 MG PO (09:06)
[2024-12-26] MEDS: IMDUR (EXTENDED RELEASE) 30 MG PO (09:06)
[2024-12-26] MEDS: MUCINEX 600 MG PO (09:06)
[2024-12-26] MEDS: NORVASC 2.5 MG PO (09:06)
[2024-12-26] MEDS: AUGMENTIN 875 MG/125 MG 1 TABLET PO (09:06)
[2024-12-26] MEDS: DICLOFENAC 1% TOPICAL GEL 2 GRAM TOPICAL (09:07)
--- NOTE | 2024-12-26 09:44 | W.PN.HOSP.TC ---
Addendum entered and electronically signed by Emiliana Woo MD 12/27/24 16:46:
# Type 2 OK 2/2 PE is the same as non-ischemic myocardial injury in this case
Addendum entered and electronically signed by Emiliana Woo MD 12/26/24 13:39:
total DC time 38 min
Original Note:
Today's Communication/Plan
-
see A/P
DC today
Assessment / Plan
Assessment / Plan
A/P:
# Acute on chronic Hypoxic Respiratory Failure 2/2 to PE and COPD exacerbation +/- PNA
# Extensive bilateral PE
# B/L DVT
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
HFNC weaned to 2L (baseline)
ECHO with 50-55%;
Conservative therapy after discussion with pulmonary- hep ggt -> Lovenox -> switched to oral anticoag Eliquis 12/23 (high dose x7 days then regular dose indefinitely 2/2 recurrent DVT)
abx Amoxicillin for 7 day- end date 12/26
Pulmonary on board
# COPD exacerbation
# Chronic hypoxic respiratory failure on 2 to 3 L baseline
steroids Prednisone taper decrease by 10 mg every 48 hours to off
Continue with nebulized therapy. Okay to resume Anoro at time of discharge
pulm outpt f/u
# CAP
s/p abx Amoxicillin x7 days- end date 12/26
# HTN benign
resumed isosorbide 30 mg daily
restarted metoprolol succinate low dose 12.5 BID (home dose 25 mg daily)
Resumed LEAD NETWORK ENGINEER amlodipine
# Chronic heart failure history preserved EF
I/O, daily weight
cont LEAD NETWORK ENGINEER Toprol
# Hx of lower extremity DVT/PE 10/05/2022
This was treated with Eliquis
# Type II OK secondary to PE
# Hx troponin elevation January 2023 with peak 0.062
# Non ischemic myocardial injury
# CAD s/p stent
cont Lipitor 20 mg
# Pacemaker hx
# HLD
Lipitor 20 mg HS
# Chronic Neuropathy
cont gabapentin, Tramadol prn mod pain
# Gastric muscle spasm
Cont dicylomine 20 mg tid
# BPH
Monitor I/o
Bladder scan protocol
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
Outpt follow up
OTHER PMH:
aspiration pneumonitis
Fatty liver
Hiatal hernia
Dysphagia due to poor dentition
DVT proph: now on Eliquis
Code Status: DNR DNI per pt
Dispo: SNF per PT OT eval
call son, call not answered
DM CM
Anticipated Discharge: Today
Subjective/Interval History
-
Date of Service: December 26, 2024
Objective Data
-
Labs:
Laboratory Results
12/26/24
07:53
WBC 9.9
Hgb 13.7
Hct 42.4
Plt Count 324
Sodium 136
Potassium 4.2
Chloride 100
Carbon Dioxide 29
BUN 20
Creatinine 0.7
Glucose 92
Calcium 8.4
Vital Signs:
Vital Signs
Temp Pulse Resp BP Pulse Ox
36.8 C 72 16 164/97 94
12/26/24 07:00 12/26/24 09:02 12/26/24 07:11 12/26/24 09:02 12/26/24 07:00
I&O
12/25/24 12/26/24 12/27/24
06:59 06:59 06:59
Intake Total 180 / 180
Output Total 550 / 550
Balance -550 / -550 180 / 180
Review of Systems
-
All other systems: Reviewed and negative
Physical Exam
-
General: Well Developed, Well Nourished, Comfortable, Respiratory Distress (chronic), Conversant and Appears Chronically Ill
HEENT: Hearing Impaired and Oxygen (2L NC)
Respiratory: Clear to Auscultation and Non Labored Respirations; Negative Accessory Resp Muscle Use
Cardiac: Regular Rhythm and S1/S2
GI: Soft, Nontender, Nondistended and Normal Bowel Sounds
Skin: Warm
Neuro: Awake and Alert
Psych: Calm and Intact Judgement/Insight (somewhat)
Data Reviewed
-
Labs: Labs Reviewed by me
--- NOTE | 2024-12-26 11:24 | CM ---
Pt accepted for discharge back to [facility] today for LTC. Ambulance transport requested.
CM attempted to contact pt's son, however he is living in a motel and CM was unable to contact him with phone numbers listed.
Plan: Pt to return to [facility] for LTC today via ambulance.
Report:
[phone]
--- NOTE | 2024-12-26 11:49 | PTCARENOTE ---
Called [facility] to give report, no answer-left on hold, Will try back.
--- NOTE | 2024-12-26 13:18 | W.DCSUMMARY ---
Discharge Summary
Discharge Data
Date of Admission: 12/19/24
Date of Discharge: 12/26/24
-
Pending Results: No
Hospital Course
Principal Diagnosis:
Acute on chronic hypoxic respiratory failure due to acute pulmonary embolism (PE), COPD exacerbation, and possible community-acquired pneumonia (CAP)
Chronic Diagnoses:�
Chronic hypoxic respiratory failure on 2 to 3 L at baseline
History of DVT/PE 10/05/2022- was treated with Eliquis
HTN benign.
Chronic heart failure history preserved EF
History of lower extremity DVT/PE 10/05/2022. This was treated with Eliquis
CAD s/p stent
Pacemaker hx
HLD
Chronic Neuropathy, on gabapentin, PRN Tramadol
Gastric muscle spasm
BPH
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
Aspiration pneumonitis
Fatty liver
Hiatal hernia
Dysphagia due to poor dentition
Consultations:�
Pulmonary
Cardiology
Procedures:�
None
Clinical course:�
This is a 89-year-old male, with past medical history as stated above, who presented with hypoxic respiratory failure.
Problem 1:
Acute on chronic hypoxic respiratory failure due to acute pulmonary embolism (PE), COPD exacerbation, and possible community-acquired pneumonia (CAP).
Of note, the patient has history of DVT/PE from 2021 which was treated with Eliquis at that time.
He was placed on high flow nasal cannula initially, and this was weaned back to 2 L nasal cannula which is his baseline home O2 requirement.
His echo was unrevealing, showed an EF of 50 to 55%.
He received heparin drip initially for anticoagulation, and this was switched to Lovenox, and switched again to oral anticoagulation Eliquis.
He was started with high-dose Eliquis 10 mg twice daily on 12/23/2024 for 7 days, this is to follow by regular dose 5 mg twice daily indefinitely due to recurrent VTE.
Problem 2:
COPD exacerbation
He was started with oral prednisone for COPD exacerbation.
He was discharged with prednisone 20 mg to taper to 10 mg every 48 hours until off.
Problem 3:
CAP.
The patient received antibiotic amoxicillin x 7 days while in the hospital.
As for the rest of his medical problems, they were stable during his hospital stay.
Discharge Plan
-
Patient Disposition: Custodial/SNF
Discharge Diagnosis/Procedures: Acute on chronic Hypoxic Respiratory Failure due to pulmonary embolism and COPD exacerbation and possible pneumonia;
History of left leg deep vein thrombosis;
Chronic hypoxic respiratory failure on 2 to 3 L at baseline
Condition: Fair
Diet: As tolerated, Low Cholesterol and Low Sodium
Activity: As tolerated
Driving Restrictions: No driving
Referrals:
[facility] [Outside]
Herbert Helton MD [Active] - in two to four weeks (May see ELECTRICAL TECH/PROJECT MANAGER)
Frederick Brown MD [Family Provider] - in less than 1 week
Additional Discharge Medication Instructions: Take Eliquis 10 mg twice daily for 4 more days only, then 5 mg twice daily starting 12/30/2024 and continue indefinitely.
You metoprolol dose adjusted to 12.5 mg twice daily (from 25 mg daily).
Taper prednisone as instructed
Prescriptions:
New
Eliquis 5 mg Tablet
10 mg PO BID 4 Days Qty: 16 0RF
metoprolol succinate 25 mg Tablet Extended Release 24 Hr
12.5 mg PO BID Qty: 60 0RF
Eliquis 5 mg tablet
5 mg PO BID Qty: 60 0RF
Rx Instructions:
start 12/30/24, continue indefinitely
prednisone 10 mg Tablet
See Rx Instructions .ROUTE .COMPLEX Qty: 10 0RF
Rx Instructions:
Take By Mouth:
20 mg daily x1 day, 10 mg daily x2 days.
Continued
acetaminophen 325 mg Tablet
650 mg PO Q8HPRN PRN (Reason: mild pain)
atorvastatin 20 mg Tablet
20 mg PO DAILY
isosorbide mononitrate 30 mg Tablet Extended Release 24 Hr
30 mg PO DAILY
amlodipine 2.5 mg Tablet
2.5 mg PO DAILY
albuterol sulfate [ProAir HFA] 90 mcg/actuation Hfa Aerosol Inhaler
2 puff INHALATION R Q4
Anoro Ellipta 62.5-25 mcg/actuation Blister With Device
1 inh INHALATION R DAILY
gabapentin 100 mg Capsule
200 mg PO TID
melatonin 3 mg Tablet
6 mg PO HS
multivitamin Tablet
1 tab PO DAILY
ipratropium-albuterol 0.5 mg-3 mg(2.5 mg base)/3 mL Solution For Nebulization
3 ml INHALATION R Q6HPRN PRN (Reason: copd)
sertraline 25 mg Tablet
25 mg PO DAILY
ondansetron HCl 4 mg Tablet
4 mg PO Q6H PRN (Reason: NAUSEA )
dicyclomine 20 mg tablet
20 mg PO TID
diclofenac sodium 1 % Gel
2 g TOPICAL BID
omega 1-stq-nlr-fish oil [Fish Oil] 1,000 mg (120 mg-180 mg) Capsule
1 cap PO DAILY
tramadol 50 mg tablet
50 mg PO BIDPRN PRN (Reason: moderate severe pain) Qty: 5 0RF
Discontinued
metoprolol succinate 25 mg Tablet Extended Release 24 Hr
25 mg PO DAILY
Discharge Orders:
Discharge Patient (As Directed); Ordered 12/26/24
Ordered By: Emiliana Woo
Care Plan Goals
Care Plan Goals:
Problem: Readiness for enhanced knowledge related to diagnosis and treatment plan
Goal: Understand your diagnosis and treatment plan needs, including medications if applicable.
Instructions: Know your diagnosis, underlying causes and treatment plan options, including medications if applicable. Consult with your health care team to learn about your diagnosis and treatment plan, including medications if applicable.
Discharge Date and Time
Print Language: [place]AST [place]
== END 2024-12-26 13:23 | DRG 175 ==
LOC: 4 EAST ACU 13:35
PROVIDERS: Clinical Nurse Specialist Family Health; Internal Medicine; Physician Assistant; Radiology Vascular & Interventional Radiology; ADMITTING PHYSICIAN Hospitalist; ATTENDING PHYSICIAN Internal Medicine; CONSULT PHYSICIAN Internal Medicine Critical Care Medicine; EMERGENCY PHYSICIAN Student in an Organized Health Care Education/Training Program; FAMILY PHYSICIAN Internal Medicine; OTHER PHYSICIAN Internal Medicine Interventional Cardiology
PROC: 5A0935A Assistance with Respiratory Ventilation, Less than 24 Consecutive Hours, High Flow/Velocity Cannula (ICD-10-PCS; 2024-12-19)
DX: I26.09 Other pulmonary embolism with acute cor pulmonale (principal); J18.9 Pneumonia, unspecified organism; J96.21 Acute and chronic respiratory failure with hypoxia; I50.33 Acute on chronic diastolic (congestive) heart failure; I21.A1 Myocardial infarction type 2; J44.1 Chronic obstructive pulmonary disease with (acute) exacerbation; J44.0 Chronic obstructive pulmonary disease with (acute) lower respiratory infection; Z66 Do not resuscitate; I82.422 Acute embolism and thrombosis of left iliac vein; F03.A4 Unspecified dementia, mild, with anxiety; F03.A3 Unspecified dementia, mild, with mood disturbance; I25.10 Atherosclerotic heart disease of native coronary artery without angina pectoris; I11.0 Hypertensive heart disease with heart failure; G47.00 Insomnia, unspecified; G62.9 Polyneuropathy, unspecified; I71.21 Aneurysm of the ascending aorta, without rupture; I48.91 Unspecified atrial fibrillation; F32.A Depression, unspecified; E78.00 Pure hypercholesterolemia, unspecified; N40.0 Benign prostatic hyperplasia without lower urinary tract symptoms; Z11.52 Encounter for screening for COVID-19; I25.2 Old myocardial infarction; Z95.5 Presence of coronary angioplasty implant and graft; Z96.642 Presence of left artificial hip joint; Z95.0 Presence of cardiac pacemaker; Z87.891 Personal history of nicotine dependence; Z86.718 Personal history of other venous thrombosis and embolism; Z86.711 Personal history of pulmonary embolism; Z79.899 Other long term (current) drug therapy; Z79.51 Long term (current) use of inhaled steroids
CPT/HCPCS: 71045; 71275; 80048; 80053; 80061; 83735; 83880; 84484; 85025; 85027; 85610; 85730; 87070; 87502; 87811; 92610; 93005; 93306; 93970; 94640; 96365; 96375; 97110; 97163; 97167; 97530; 99291; Q9967

== ENCOUNTER 2025-07-03 16:51 | Inpatient (IN) | payer MEDICARE, OTHER, SELFPAY ==
[2025-07-03 13:35] VITALS: BP 121/80
--- NOTE | 2025-07-03 13:58 | ED.GENMED ---
History of Present Illness
General
Chief Complaint: Fall
Source: patient
Exam Limitations: none
Time Seen by Provider: 07/03/25 13:28
Nursing documentation reviewed up to this point in time: agreed with
History of Present Illness
History of Present Illness:
89 yr old male with past medical history of COPD on oxygen ,PE CHF hypertension from [facility] sent for evaluation of fall. Patient complains of right leg pain. Patient reports he was in the bathroom and tripped. Pt is unsure if he hit his
head. Patient is on apixaban. His only complaint is right hip pain.
Past History
Past History
ED Past Medical History: CHF, COPD, HTN and Other (DVT/PE, CAD, heart failure, hypertension, hyperlipidemia)
ED Past Surgical History: Cardiac
Social History
Tobacco: Former smoker
Alcohol: None
Drug: None
Living: prison
Family History
Family History: Unable to obtain
Phy Exam
General Physical Exam
General Presentation: no apparent distress
General age: appears stated age
General Skin: warm and dry
General Habitus: elderly
General Mental: alert
General Hydration: appears well hydrated
Cardiovascular Exam
Cardiovascular Exam: regular rate/rhythm, no murmur and normal peripheral pulses
Pulmonary Exam
Pulmonary Exam: lungs clear and no respiratory distress
Neurological Exam
Neurological Exam: alert and oriented x3
Musculoskeletal Exam
Musculoskeletal Exam: other (No obvious abnormality to right hip , +pain with range of motion ; strong pulses )
Skin Exam
Skin Exam: normal color and warm/dry
Psychiatric Exam
Psychiatric Exam: normal mood/affect
Course
Orders/Labs/Results
Orders:
Orders
07/03/25 13:46
Hip, Right 2-3 Views [CR Hip - RT w/wo Pel 2-3 Vw*] Urgent
Comment:
Reason For Exam: pain after a fall
Include a pelvis x-ray?: Yes
07/03/25 13:48
Basic Metabolic Panel Urgent
Complete Blood Count/With Diff Urgent
NT-proBNP Urgent
Comment: ADD ON
07/03/25 13:59
CT Cervical Spine W/o Iv Contr Urgent
Comment:
Reason For Exam: trauma
CT Head W/o Iv Contrast Urgent
Comment:
Reason For Exam: trauma
07/03/25 Dinner
Cholesterol Lowering
At Your Request: Limited Participation
Does patient need a safe tray?: No
Cholesterol Lowering: Sodium, 2 Gram
07/03/25 15:13
Morphine Sulfate 2 mg IV NOW STA
07/03/25 16:20
Electrocardiogram (*1) Stat
Reason for Study: Other
Other Reason for Exam: chest pain
07/03/25 16:30
Albuterol Nebs [Ventolin Nebules] 2.5 mg INH R NOW STA
07/03/25 16:36
Admit/Transfer Patient As Directed
Co-Sign Provider:
Level of Care: Inpatient admission
Assign to:: Telemetry
Physician / Group: xin boland
Diagnosis: Mechanical fall with right hip fracture, acute on chronic hypoxia conc chf
Reason for Telemetry: Subacute Heart Failure
Date to Stop Telemetry: 07/05/25
Time to Stop Telemetry: 11:00
Reason for Hospitalization: Mechanical fall with right hip fracture
Expected length of stay greater than two midnights?: Yes
ELOS- Estimated Length of Stay in days: 4
I certify the patient meets the requirements for IP care: Yes
Code Status As Directed
Resuscitation Status: Full Code
07/03/25 16:43
Morphine Sulfate 2 mg IV NOW STA
Heparin Protocol- PTT Orders As Directed
PTT per Heparin protocol: -Obtain CBC and baseline PTT - if not already collected.
-Obtain PTT 6 hours from start of infusion. Then, every 6 hours until 2 consecutive
PTT's are therapeutic. Then, PTT Daily.
-With each rate change, obtain PTT every 6 hours until 2 consecutive PTT's are
therapeutic. Then, PTT Daily.
Notify MD As Directed
Notify physician if: PTT is greater than or equal to 200.
PRN Pain Medication Management As Directed
May give lesser potent ordered pain med per pt: Yes
preference::
Protocol:: Medication orders for pain may be administered in a
manner that supports deferring to patient preference
when the pt is:
- Requesting an ordered lesser potent pain medication.
Least to most potent pain medications are defined
as: acetaminophen < NSAID < tramadol < opioids
(morphine, oxycodone, hydromorphone).
- Requesting a lesser dose of the same medication IF
ORDERED.
- Requesting a less intrusive route of administration
if both routes are prescribed by the provider (PO <
IV).
07/03/25 16:45
Heparin 11958 Units/250 ml 25,000 units in 250 ml IV PER PROTOCOL
Weight to be used for heparin protocol in kilograms (kg):: 90.5
Protocol:: DVT/PE
PTT Goal Range to be used:: PTT 73 to 111 seconds
Order type:: Initial
INITIAL Infusion Dose (UNITS/KG/hr) & then follow protocol:: 18 units/kg/hr
Infusion Dose in UNITS/hr & then follow protocol (UNITS/hr):: 1,600
INFUSION RATE in mL/hr & then follow protocol (mL/hr):: 16
Additional Instructions:: NO BOLUS
For DVT/PE algorithm, re-bolus for low PTT?: Yes
PTT less than or equal to 64 seconds:: Re-bolus 80 units/kg (max 10,000units). Increase by 400 units/hr
(+ 4mL/hr)
PTT 64.1 to 72.9 seconds:: Re-bolus 40 units/kg (max 5,000 units). Increase by 200 units/hr
(+ 2mL/hr)
PTT 73 to 111 seconds:: Target Range. No change in rate.
PTT 111.1 to 130.9 seconds:: Decrease rate by 200 units/hr (- 2 mL/hr)
PTT 131 to 199.9 seconds:: HOLD for 1 hr. Then decrease by 300 units/hr (- 3mL/hr)
PTT greater than or equal to 200 seconds:: HOLD for 2 hrs & Notify Provider. Then decrease by 400 units/hr
(- 4mL/hr)
Lab follow-up:: Each change, PTT q6h until 2 consecutive are therapeutic. Then
PTT daily.
07/03/25 16:47
Consult Orthopedic [ORTHOPEDIC CONSULT] Routine
Consulting Provider: Travis Estevez
Was physician already notified: Yes
Reason for consult: mechan fall right hip fx
07/03/25 17:06
Complete Blood Count/No Diff Urgent
Comment: Obtain baseline before beginning heparin infusion if not already collected
PTT Urgent
Comment: Obtain baseline before beginning heparin infusion if not already collected
Potassium Urgent
07/03/25 21:36
Acetaminophen [Tylenol] 650 mg PO Q4HPRN PRN
Bisacodyl [Dulcolax] 10 mg RECTAL [id number] PRN
Docusate W/Senna [Senokot-S] 1 tablet PO BIDPRN PRN
Morphine Sulfate 2 mg IV Q4HPRN PRN
Morphine Sulfate 4 mg IV Q4HPRN PRN
Polyethylene Glycol Powder [Miralax] 17 grams PO DAILYPRN PRN
07/03/25 21:36
VTE Contraindication Routine
VTE Mechanical Device Contraindication: Medical Contraindication
Pharmocologic Contraindication: Medical Contraindication
Comment: pt toook brianis and nw on hepparin gtt
Activity As Directed
Activity Level: Bedrest
Intake/ Output As Directed
Frequency: Per unit guidelines
Vital Signs As Directed
Frequency: Per unit guidelines
Weight As Directed
Frequency: Daily
O2 Therapy [RESP] Routine
Nasal Cannula Liter Flow: 3 LPM
Titrate/Wean O2 to maintain O2 sat greater than (%): 92
Special Instructions: Patient on chronic O2 3 L
Pulse Ox/spot Check [RESP] Routine
Quantity: 1
Pt Eval And Treat Routine
Treatment: Until after surgery
Activity Level: Bedrest
07/04/25 07:32
Complete Blood Count/With Diff IN AM
Comprehensive Metabolic Panel IN AM
07/05/25 Breakfast
NPO
Allow oral meds: Yes
Allow clear liquids: No
NPO with Ice Chips: No
Complete Blood Count/No Diff Q2D
Comment: Notify MD if platelet count is <130,000 or decreases by 50% from baseline
Complete Blood Count/With Diff IN AM
Comprehensive Metabolic Panel IN AM
07/06/25 06:00
Complete Blood Count/With Diff IN AM
Comprehensive Metabolic Panel IN AM
07/07/25 06:00
Complete Blood Count/No Diff Q2D
Comment: Notify MD if platelet count is <130,000 or decreases by 50% from baseline
Complete Blood Count/With Diff IN AM
Comprehensive Metabolic Panel IN AM
07/09/25 06:00
Complete Blood Count/No Diff Q2D
Comment: Notify MD if platelet count is <130,000 or decreases by 50% from baseline
07/11/25 06:00
Complete Blood Count/No Diff Q2D
Comment: Notify MD if platelet count is <130,000 or decreases by 50% from baseline
07/13/25 06:00
Complete Blood Count/No Diff Q2D
Comment: Notify MD if platelet count is <130,000 or decreases by 50% from baseline
07/15/25 06:00
Complete Blood Count/No Diff Q2D
Comment: Notify MD if platelet count is <130,000 or decreases by 50% from baseline
07/17/25 06:00
Complete Blood Count/No Diff Q2D
Comment: Notify MD if platelet count is <130,000 or decreases by 50% from baseline
07/19/25 06:00
Complete Blood Count/No Diff Q2D
Comment: Notify MD if platelet count is <130,000 or decreases by 50% from baseline
Abnormal Lab Results
07/03/25
13:48
WBC 11.7 H 10^3/uL
(4.8-10.8)
MCHC 32.3 L g/dL
(33.0-37.0)
MPV 10.6 H fL
(7.4-10.4)
Abs Immat Gran (auto) 0.1 H 10^3/uL
(0-0.05)
Absolute Neuts (auto) 9.4 H 10^3/uL
(1.4-6.5)
Absolute Lymphs (auto) 0.9 L 10^3/uL
(1.2-3.4)
Absolute Monos (auto) 1.3 H 10^3/uL
(0.1-0.6)
Neutrophils % 80.3 H %
(42.2-75.2)
Lymphocytes % 7.4 L %
(20.5-51.1)
Monocytes % 11.4 H %
(1.7-9.3)
BUN 27 H mg/dl
(9-20)
Glucose 168 H mg/dl
(70-99)
07/03/25 13:48
07/03/25 13:48
Vital Signs
Initial and Last Documented VS:
Initial Vital Signs
Temp
99.5 F
07/03/25 13:33
Last Documented Vital Signs
Temp Pulse Resp BP Pulse Ox
99.9 F 77 20 121/66 93
07/04/25 11:13 07/04/25 11:13 07/04/25 11:13 07/04/25 11:13 07/04/25 11:13
MDM/Problems Addressed
Differential Diagnosis Includes:
Not limited to head injury, hip contusion versus fracture versus location
MDM/Problems Addressed:
89-year-old male male presented from [facility] for fall complaining of right hip. Patient denies hitting head however he is on anticoagulation and ct head done and neg. xray shows impacted right hip fracture. Case discussed with orthopedics
patient mated to the hospitalist service. Stable vital signs.
*Radiology
Radiology exam reviewed: radiology read reviewed
*Pulse Oximetry
SaO2: 91
Nasal Cannula flow liters per minute: 4
Patient hypoxic: not evaluated ((chronic however) copd )
*Critical Care Note
Total Time (30-74mins, 75-104mins- exclusive of procedures): Not Applicable
Patient Management
Discussion with other providers: Planimeter Operator (ortho DR Estevez )
ED Attending Note
-
Portions of this chart may have been created with voice recognition software.� Occasional wrong word or��sound alike� substitutions may have occurred due to the inherent limitations of voice recognition software.
Discharge Plan
Departure
Patient Disposition: Admit
Date of Disposition: 07/03/25
Time of Disposition: 16:22
Admit to: Med/Surg
Admit to doctor: hospitalist
Presentation/result/management discussed w/ accepting MD/DO: Hospitalist
Patient with high blood pressure during this ER visit?: No
Condition: Fair
Covid-19: Not Applicable
Discharge Problem:
Closed fracture of right hip
Interventions
Interventions:
*General Assessment Last Done: 07/03/25 15:29
*Neglect/Abuse Screening Last Done: 07/03/25 15:29
*ED- Fall Risk Assessment Last Done: 07/03/25 21:41
*ED COVID-19 Vaccine History Last Done: 07/03/25 15:29
*Nursing Disposition Last Done: 07/03/25 21:41
ED-Musculoskeletal Assessment Last Done: 07/03/25 14:00
ED- Neurological Assessment Last Done: 07/03/25 14:00
ED-Skin Assessment Last Done: 07/03/25 14:00
[2025-07-03 14:00] LABS: Hematocrit 45.2 % (39.0-52.0); Hemoglobin 14.6 g/dL (13.0-18.0); Mean Corp Hgb Conc. 32.3 g/dL (33.0-37.0); Mean Corpuscular Volume 92.4 fL (80.0-94.0); Nucleated Red Blood Cells % 0 % (-); Platelet Count 230 10^3/uL (130-400); Red Cell Dist. Width 13.4 % (11.5-14.5)
[2025-07-03 14:25] LABS: Blood Urea Nitrogen 27 mg/dl (9-20); Calcium 9.2 mg/dl (8.4-10.2); Carbon Dioxide 28 mmol/L (22-30); Chloride 104 mmol/L (98-107); Glucose 168 mg/dl (70-99); Sodium 137 mmol/L (135-145); eGFR > 60.00
[2025-07-03] MEDS: MORPHINE SULFATE 2 MG IV ×3 (15:19→21:58)
--- NOTE | 2025-07-03 16:20 | HPS.HSE ---
Addendum entered and electronically signed by Idalia Fuller MD 07/03/25 17:53:
This is an addendum to the H&P written by Laura Gomez on 07/03/2025. �Patient seen and examined independently with NURSING PROGRAM DIRECTOR.
89-year-old male past medical history of DVT/ 2021 and PE in November on Eliquis, COPD on 2 to 3 L baseline, hypertension, CAD status post then, chronic HFpEF with pacemaker, hyperlipidemia, chronic neuropathy, BPH, hiatal hernia, fatty liver,
ascending thoracic aortic aneurysm 4.2 cm, presenting with fall with right leg/hip pain after right knee buckling after getting up from the toilet. �Unsure if hit his head.
Vital signs showing patient saturating 81% on 3 L. �Increased lower extremity edema on examination.
Labs show leukocytosis.
Right hip x-ray shows acute fracture through the transfer to go right femoral neck superior displacement of the distal fracture fragment. �
CT head shows no acute abnormality. �CT cervical spine shows no abnormality.
Patient with right hip fracture. �Patient hypoxic on his baseline 3 L. �Check chest x-ray and cardiac BNP. �Given complex history patient is at higher than normal risk of postcardiac complications after surgery. �May require cardiology evaluation.
Hold Eliquis which was taken this morning. �Start heparin drip due to significant history of recent PE in November. �Check EKG. �Pain control with morphine. �Ortho consulted.
Original Note:
Family Physician
-
Family Physician: Frederick Brown
Chief Complaint
-
Fall, right hip pain
History of Present Illness
89-year-old male from [facility] sent for a fall with right leg pain. He was reportedly in the bathroom going Number 2. When he stood up off of the toilet he states his right knee buckled and he fell on his right hip. He denies head injury,
LOC, neck pain, lightheadedness, dizziness, chest pain, palpitations, cough, shortness of breath, abdominal pain, nausea, vomiting, diarrhea, urinary symptoms. He is on Eliquis for history of PE. In the ER he was noted to have a right hip fracture
on x-ray.
He has past medical history of DVT/PE November 2024 on lifelong Eliquis, extensive left lower extremity DVT /Bilateral PE 10/05/2022 left greater saphenous vein common femoral vein, superficial femoral vein, popliteal vein, peroneal vein, posterior
tibial vein. Nonocclusive in the groin or common femoral vein, occlusive in the thigh and to the including the calf. Left iliac vein thrombus nonocclusive,dementia�mild-moderate COPD, chronic hypoxic respiratory failure on chronic 2 to 3 L
baseline, aspiration pneumonitis, chronic heart failure preserved EF, HTN, HLD, CAD status post stent, permanent pacemaker, indeterminant troponin elevation, dysphagia due to poor dentition, BPH, fatty liver, large hiatal hernia, peripheral
neuropathy, anxiety, insomnia.
Medical History
Past Medical History
Past Medical History: Reports Other
Additional Past Medical History:
Dementia�mild-moderate
COPD
Chronic hypoxic respiratory failure on chronic 2 to 3 L baseline, aspiration pneumonitis
Pulmonary embolism November 2024
Extensive left lower extremity DVT /Bilateral PE 10/05/2022 left greater saphenous vein common femoral vein, superficial femoral vein, popliteal vein, peroneal vein, posterior tibial vein.
Nonocclusive in the groin or common femoral vein, occlusive in the thigh and to the including the calf.
Left iliac vein thrombus nonocclusive, indeterminant troponin elevation, dysphagia due to poor dentition,
Chronic diastolic heart failure preserved EF
HTN
HLD
CAD status post sten
Permanent pacemaker
BPH
fatty liver
Large hiatal hernia
peripheral neuropathy
Anxiety
Insomnia
Past Surgical History: Reports Other
Additional Past Surgical History:
Permanent pacemaker
Cath wwith stents
Social History
Unable to obtain full social history at this time due to: Dementia
Tobacco: Former Smoker
Alcohol: None
Drug: None
Personal: Single
Living: [facility]
Employment: Retired
Family History
Family History: Not pertinent
Allergies / Home Medications
Allergies reflects when Allergies were last updated in [employer].
Home Medications with original date entered in [employer]
Allergy/Medication List:
Allergies
Allergy/AdvReac Type Severity Reaction Status Date / Time
No Known Allergies Allergy Verified 02/09/23 09:11
Home Medications
acetaminophen 325 mg tablet 650 mg PO Q8HPRN PRN mild pain 06/17/22
albuterol sulfate 90 mcg/actuation aerosol inhaler (ProAir HFA) 2 puff inhalation R Q4 Lung/breathing issues 06/17/22
amlodipine 2.5 mg tablet 2.5 mg PO DAILY Blood pressure 06/17/22
atorvastatin 20 mg tablet 20 mg PO DAILY High cholesterol 06/17/22
gabapentin 100 mg capsule 200 mg PO TID Pain 06/17/22
isosorbide mononitrate 30 mg tablet,extended release 24 hr 30 mg PO DAILY Heart disease/condition 06/17/22
umeclidinium 62.5 mcg-vilanterol 25 mcg/actuation powdr for inhalation (Anoro Ellipta) 1 inh inhalation R DAILY Lung/breathing issues 06/17/22
melatonin 3 mg tablet 6 mg PO HS Sleep 07/22/22
ipratropium 0.5 mg-albuterol 3 mg (2.5 mg base)/3 mL nebulization soln 3 ml inhalation R Q6HPRN PRN copd 10/05/22
multivitamin 1 tab PO DAILY Supplement 10/05/22
sertraline 25 mg tablet 25 mg PO DAILY Mental Health/Anxiety 10/05/22
diclofenac sodium 1 % topical gel 2 g topical BID LEFT KNEE, RIGHT SHOULDER 02/09/23
dicyclomine 20 mg tablet 20 mg PO TID Muscle spasms 02/09/23
omega 9-gvy-mga-fish oil 1,000 mg (120 mg-180 mg) capsule (Fish Oil) 1 cap PO DAILY Supplement 02/09/23
ondansetron HCl 4 mg tablet 4 mg PO Q6H PRN NAUSEA 02/09/23
apixaban 5 mg tablet (Eliquis) 5 mg PO BID #60 tabs 12/26/24
apixaban 5 mg tablet (Eliquis) 10 mg (2 x 5 mg) PO BID 4 days #16 tabs 12/26/24
metoprolol succinate 25 mg tablet,extended release 24 hr 12.5 mg (1/2 x 25 mg) PO BID #60 tabs 12/26/24
prednisone 10 mg tablet See Rx Instructions .Route .COMPLEX #10 tabs 12/26/24
tramadol 50 mg tablet 50 mg PO BIDPRN PRN moderate severe pain #5 tabs 12/26/24
Review of Systems
-
History Source: Patient
A 12 point ROS was completed and negative except as noted: Yes
Constitutional: Denies Fever or Chills
EENT: Denies Sore Throat or Runny Nose
Respiratory: Denies Cough or Trouble Breathing
Cardiac: Denies Chest Pain, Diaphoresis, Palpitations or Syncope
Abdomen/GI: Denies Abdominal Pain, Nausea, Vomiting, Diarrhea or Constipated
: Denies Dysuria, Frequency, Flank Pain, Incontinence or Difficulty Voiding
Musculoskeletal: Reports Joint Pain (Right hip secondary to fall/fracture) and Edema (+1 bilateral ankle)
Skin: Denies Itching or Rash
Neurological: Denies Dizzy, Headache or Weakness
Endocrine: Reports No Symptoms
Hematologic/Lymphatic: Reports No Symptoms
Psych: Reports Calm
Physical Exam
Vital Signs
Vital Signs
Temp Resp BP Pulse Ox
99.5 F 18 121/80 91
07/03/25 13:33 07/03/25 13:35 07/03/25 13:35 07/03/25 13:59
Physical Exam
General: Conversant and Pain; No Fever or Chills
HEENT: NormoCephalic, Anicteric, Moist mucous membranes, Atraumatic, PERRLA, [place] Conjunctivae, No Ptosis and Oxygen (Chronic 3 L nasal cannula)
Respiratory: Clear; No Wheezes, Rales or Rhonchi
Cardiac: S1/S2, Regular Rhythm and Murmur (2/6 systolic); No Rub, Gallop or Peripheral Edema
Breast: Deferred by me
GI: Soft, Non Tender, Non Distended, Normal Bowel Sounds and No Hepatosplenomegaly
Rectal: Deferred by Provider
Genito-urinary: Deferred by me
Musculoskeletal: No Clubbing, No Cyanosis, Edema, Left Lower Extremity (+1 ), Edema, Right Lower Extremity (+1) and Other (Tenderness right greater trochanter secondary to current fracture, distal neuro vascular status intact, +2 dorsal pedal
pulses); No Edema, Left Upper Extremity or Edema, Right Upper Extremity
Skin: Warm and Dry; No Rash
Neuro: AO x 3 (Oriented to person, place, jail, year), Nonfocal/grossly intact, Cranial Nerves Intact and Other (CREEK chronic); No Slurred Speech, Facial Droop or Tremors
Psych: Calm
Laboratory Results
-
07/03/25 13:48
Laboratory Results
Total Bilirubin Cancelled 07/03/25 13:48
AST Cancelled 07/03/25 13:48
ALT Cancelled 07/03/25 13:48
Alkaline Phosphatase Cancelled 07/03/25 13:48
Impression/Plan
-
Impression/plan:
Admit to telemetry
#Mechanical fall with right hip fracture
- Hold Eliquis patient took this a.m. 07/03/2025
-IV heparin drip no bolus
-Low-fat diet tonight
-N.p.o. starting 07/05 for likely surgery 07/05/2025 due to taking Eliquis today
- Pain control IV morphine
- Consult Ortho Dr. Estevez aware
- PT/OT/case management consult
Acute on chronic hypoxic respiratory failure 3 L
#COPD mild/m�no acute exacerbation
cont enoro elipta
Acute on chronic hypoxia possibly secondary to CHF exacerbation
# Chronic heart failure history preserved EF
I/O,, daily weight
No reported diuretics
-Reported oxygen saturation down to 81% on 3 L however patient not tachypneic or short of breath
-Continue supplemental O2
- Check BNP
- Check CXR
#Extensive bilateral PE November 2024
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
- Patient to be on lifelong Eliquis
-Hold Eliquis Start heparin drip due to history above
CT PE study
1. Extensive bilateral pulmonary emboli as described. Suggestion of right heart strain.
2. 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
3. Small left and trace right pleural effusions with associated compressive atelectasis.
#HTN�benign
BP 121/80
- Continue isosorbide 30 mg daily, metoprolol succinate 12.5 mg twice daily
#Hx of lower extremity DVT/PE 10/05/2022
-Hold Eliquis Start heparin drip due to history above
Ultrasound left lower extremity: 10/05/2022
Extensive thrombus formation in the left greater saphenous vein, common femoral vein, superficial femoral vein, popliteal vein,
peroneal vein and posterior tibial vein. nonocclusive in the groin or common femoral vein. This is occlusive in the thigh and to and including
the calf
The left iliac vein contains thrombus which is nonocclusive. The mid and distal IVC could not be seen due to overlying bowel gas.
The proximal IVC is within normal limits.
The right common femoral vein is clear.
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
#CAD s/p stent
#Hx troponin elevation January 2023 with peak 0.062
-cont Lipitor 20 mg hs, metoprolol
#Dementia�mild/mod
-Patient oriented to name, place, knows he lives at a jail with roommates, president, year
#Pacemaker hx
#HLD
cont cont Lipitor 20 mg hs
#Chronic Neuropathy
- cont gabapentin , Tramadol prn mod pain
# Gastric Muscle spasms
cont dicylomine 20 mg tid
#BPH
Monitor I/o
-Bladder scan protocol
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
OTHER PMH:
aspiration pneumonitis
Fatty liver
Hiatal hernia
Dysphagia due to poor dentition
Dvt proph
- IV heparin gtt
Full code per Pt
[2025-07-03 17:02] VITALS: BP 128/86
[2025-07-03 17:13] LABS: Hematocrit 46.2 % (39.0-52.0); Hemoglobin 15.1 g/dL (13.0-18.0); Mean Corp Hgb Conc. 32.7 g/dL (33.0-37.0); Mean Corpuscular Volume 93.3 fL (80.0-94.0); Platelet Count 219 10^3/uL (130-400); Red Cell Dist. Width 13.6 % (11.5-14.5)
[2025-07-03] MEDS: VENTOLIN NEBULES 2.5 MG INH (17:13)
[2025-07-03 17:23] LABS: APTT 28.7 Sec (23.4-35.0)
[2025-07-03 17:26] LABS: Potassium 5.0 mmol/L (3.5-5.1)
[2025-07-03] MEDS: HEPARIN 25000 UNITS/250 ML IV (17:40)
[2025-07-03 18:00] VITALS: BP 105/46
[2025-07-03 21:43] VITALS: BMI 27.7
[2025-07-03 21:52] VITALS: BP 121/72
[2025-07-03] MEDS: NEURONTIN 200 MG PO (21:57)
[2025-07-03] MEDS: TOPROL XL 12.5 MG PO (21:57)
[2025-07-03] MEDS: MELATONIN 6 MG PO (21:58)
[2025-07-03 22:10] VITALS: BMI 27.7
[2025-07-03 23:23] VITALS: BP 120/70
[2025-07-04] VITALS (7 sets, daily range): BP systolic 100–121; BP diastolic 64–79; BMI 27.5
[2025-07-04 00:55] LABS: APTT 83.5 Sec (23.4-35.0)
[2025-07-04] MEDS: MORPHINE SULFATE 2 MG IV ×4 (02:48→21:54)
[2025-07-04] MEDS: TYLENOL 650 MG PO (04:04)
[2025-07-04 04:29] LABS: COVID-19 Antigen Negative (Negative)
--- NOTE | 2025-07-04 05:38 | CON.ORTHO ---
Consultation
-
Date/Time Consultation Requested: 07/03/2025 1647
Date/Time Consultation Performed: 07/04/2025 0745
Requesting Provider: Laura EDWARDS
Performing Provider: YAHIR Turner, Dr. Travis Estevez
Reason for Consultation: Hip fracture
Consultation - Orthopedics
History
89-year-old male presenting to [facility] emergency room after a fall and impact of his right lower extremity with inability ambulate afterward. He was taken via EMS to [facility] and was diagnosed with a right hip fracture. Denies any
prodromal pain
Allergies / Home Medications
Past Medical History
Past Medical History: Reports Other
Additional Past Medical History:
Dementia�mild-moderate
COPD
Chronic hypoxic respiratory failure on chronic 2 to 3 L baseline, aspiration pneumonitis
Pulmonary embolism November 2024
Extensive left lower extremity DVT /Bilateral PE
Chronic diastolic heart failure preserved EF
HTN
HLD
CAD status post sten
Permanent pacemaker
BPH
fatty liver
Large hiatal hernia
peripheral neuropathy
Anxiety
Insomnia
Past Surgical History: Reports Other
Additional Past Surgical History:
Permanent pacemaker
Cath wwith stents
Social History
Unable to obtain full social history at this time due to: Dementia
Tobacco: Former Smoker
Alcohol: None
Drug: None
Personal: Single
Living: [facility]
Employment: Retired
Family History
Family History: Not pertinent
Allergies / Home Medications
Allergy/AdvReac Type Severity Reaction Status Date / Time
No Known Allergies Allergy Verified 02/09/23 09:11
�Medication �Instructions �Recorded
acetaminophen 325 mg tablet 650 mg PO Q8HPRN PRN mild pain 06/17/22
albuterol sulfate 90 mcg/actuation 2 puff inhalation R Q4 06/17/22
aerosol inhaler (ProAir HFA) Lung/breathing issues
amlodipine 2.5 mg tablet 2.5 mg PO DAILY Blood pressure 06/17/22
atorvastatin 20 mg tablet 20 mg PO DAILY High cholesterol 06/17/22
gabapentin 100 mg capsule 200 mg PO TID Pain 06/17/22
isosorbide mononitrate 30 mg 30 mg PO DAILY Heart 06/17/22
tablet,extended release 24 hr disease/condition
umeclidinium 62.5 mcg-vilanterol 1 inh inhalation R DAILY 06/17/22
25 mcg/actuation powdr for Lung/breathing issues
inhalation (Anoro Ellipta)
melatonin 3 mg tablet 6 mg PO HS Sleep 07/22/22
ipratropium 0.5 mg-albuterol 3 mg 3 ml inhalation R Q6HPRN PRN copd 10/05/22
(2.5 mg base)/3 mL nebulization
soln
multivitamin 1 tab PO DAILY Supplement 10/05/22
sertraline 25 mg tablet 25 mg PO DAILY Mental 10/05/22
Health/Anxiety
diclofenac sodium 1 % topical gel 2 g topical BID LEFT KNEE, RIGHT 02/09/23
SHOULDER
dicyclomine 20 mg tablet 20 mg PO TID Muscle spasms 02/09/23
omega 7-aan-mzx-fish oil 1,000 mg 1 cap PO DAILY Supplement 02/09/23
(120 mg-180 mg) capsule (Fish Oil)
ondansetron HCl 4 mg tablet 4 mg PO Q6H PRN NAUSEA 02/09/23
apixaban 5 mg tablet (Eliquis) 5 mg PO BID #60 tabs 12/26/24
apixaban 5 mg tablet (Eliquis) 10 mg (2 x 5 mg) PO BID 4 days #16 12/26/24
tabs
metoprolol succinate 25 mg 12.5 mg (1/2 x 25 mg) PO BID #60 12/26/24
tablet,extended release 24 hr tabs
prednisone 10 mg tablet See Rx Instructions .Route 12/26/24
.COMPLEX #10 tabs
tramadol 50 mg tablet 50 mg PO BIDPRN PRN moderate 12/26/24
severe pain #5 tabs
Vital Signs / Lab Results
Temp Pulse Resp BP Pulse Ox
100.7 F H 82 18 100/74 95
07/04/25 03:30 07/04/25 03:30 07/04/25 03:30 07/04/25 03:30 07/04/25 03:30
Physical exam: Examination of the right lower extremity is shortened and slightly externally rotated right lower extremity. Skin is intact. No erythema edema or ecchymosis. Demonstrates gross neurovascularly intact L3-S1
Imaging: X-rays taken of the pelvis and right hip shows previous left cephalomedullary nail fixation without evidence of hardware complication. Impacted displaced right femoral neck fracture with minimal arthrosis of the femoral acetabular joint
Assessment / Plan
89-year-old male with mechanical fall DOI 03 July 2025 with an impacted and displaced right femoral neck fracture ambulatory at baseline with assistive devices.
- Imaging was shown and reviewed with patient/family; discussed options of operative and nonoperative treatment given his baseline status recommended for operative intervention of right hip hemiarthroplasty
- Consent obtained on file
- Type and screen ordered
- Tentative for OR 05 July versus 06 July pending medical clearance/optimization
- N.p.o. at midnight
- Antibiotics and irrigation products for OR on order
- Continue hold of [employer] at this time
[2025-07-04] MEDS: ULTRAM 50 MG PO (06:28)
[2025-07-04 06:31] LABS: Urine Character Clear (Clear)
[2025-07-04 07:10] LABS: Urine Squamous Cell 16-20 /LPF (Few)
[2025-07-04 07:12] LABS: Urine Red Blood Cell 0-2 /HPF (0-2); Urine White Cell 0-2 /HPF (0-5)
[2025-07-04 07:59] LABS: Hematocrit 43.6 % (39.0-52.0); Hemoglobin 14.3 g/dL (13.0-18.0); Mean Corp Hgb Conc. 32.8 g/dL (33.0-37.0); Mean Corpuscular Volume 92.6 fL (80.0-94.0); Nucleated Red Blood Cells % 0 % (-); Platelet Count 180 10^3/uL (130-400); Red Cell Dist. Width 13.5 % (11.5-14.5)
[2025-07-04 08:06] LABS: APTT 149.2 Sec (23.4-35.0)
[2025-07-04] MEDS: STRIVERDI RESPIMAT 2 PUFF INH (08:16)
[2025-07-04] MEDS: SPIRIVA RESPIMAT 2.5 MCG 2 PUFF INH (08:19)
[2025-07-04 08:39] LABS: Procalcitonin < 0.05 ng/ml (0.0-0.25)
[2025-07-04] MEDS: LIPITOR 20 MG PO (08:46)
[2025-07-04] MEDS: NEURONTIN 200 MG PO ×3 (08:46→21:46)
[2025-07-04] MEDS: TOPROL XL 12.5 MG PO ×2 (08:46→23:05)
[2025-07-04] MEDS: THERAGRAN 1 TABLET PO (08:47)
[2025-07-04] MEDS: ZOLOFT 25 MG PO (08:47)
[2025-07-04] MEDS: NORVASC 2.5 MG PO (08:47)
[2025-07-04] MEDS: IMDUR (EXTENDED RELEASE) 30 MG PO (09:05)
[2025-07-04 09:37] LABS: ALT (SGPT) 22 U/L (0-50); AST (SGOT) 18 U/L (17-59); Albumin 3.9 g/dl (3.5-5.0); Alkaline Phosphatase 71 U/L (38-126); Blood Urea Nitrogen 21 mg/dl (9-20); Calcium 8.7 mg/dl (8.4-10.2); Carbon Dioxide 22 mmol/L (22-30); Chloride 108 mmol/L (98-107); Estimated Creatinine Clearance 63 ml/min; Glucose 124 mg/dl (70-99); Potassium 4.7 mmol/L (3.5-5.1); Sodium 138 mmol/L (135-145); Total Protein 6.3 g/dl (6.3-8.2); eGFR > 60.00
[2025-07-04] MEDS: HEPARIN 25000 UNITS/250 ML IV (09:38)
--- NOTE | 2025-07-04 12:31 | W.PN.HOSP.TC ---
Today's Communication/Plan
-
cards input for pre-op
IV hep gtt-can stop tomm per ortho
pain control
bedrest till surgery
Assessment / Plan
Assessment / Plan
General: Conversant and Pain; No Fever or Chills
HEENT: NormoCephalic, Anicteric, Moist mucous membranes, Atraumatic, [place] Conjunctivae, No Ptosis and Oxygen (Chronic 3 L nasal cannula)
Respiratory: Clear; No Wheezes, Rales or Rhonchi
Cardiac: S1/S2, Regular Rhythm and Murmur (2/6 systolic); No Rub, Gallop or Peripheral Edema
Breast: Deferred by me
GI: Soft, Non Tender, Non Distended, Normal Bowel Sounds and No Hepatosplenomegaly
Rectal: Deferred by Provider
Genito-urinary: Deferred by me
Musculoskeletal: No Clubbing, No Cyanosis, Edema, Right Lower Extremity (+1) and Other (Tenderness right greater trochanter secondary to current fracture, distal neuro vascular status intact, +2 dorsal pedal pulses); No Edema, Left Upper Extremity
or Edema, Right Upper Extremity
Skin: Warm and Dry; No Rash
Neuro: AO x 3 (Oriented to person, place, retirement, year), Nonfocal/grossly intact, Cranial Nerves Intact and Other ([place] chronic); No Slurred Speech, Facial Droop or Tremors
Psych: Calm
#Mechanical fall with right hip fracture
-Hold Eliquis patient took this a.m. 07/03/2025
-IV heparin drip no bolus
-Low-fat diet tonight
-N.p.o. starting 07/05 for likely surgery 07/05/2025 due to taking Eliquis today
-Pain control IV morphine
-Consult Ortho Dr. Estevez aware
-EGK with paced rhythm. Patient with extensive cardiac history and will ask cards for preop risk stratification and optimization.
#Fever overnight
-flu negative. Procal negative.
-ua neg. Blood culture in lab.
-wbc normal.
# chronic hypoxic respiratory failure 3 L
#COPD no acute exacerbation
cont enoro elipta
# Chronic heart failure history preserved EF
I/O,, daily weight
No reported diuretics
-Continue supplemental O2
-bnp at 646.
-CXR with atlectasis.
#Extensive bilateral PE November 2024
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
- Patient to be on lifelong Eliquis
-Hold Eliquis Start heparin drip due to history above
#HTN�benign
- Continue isosorbide 30 mg daily, metoprolol succinate 12.5 mg twice daily
#Hx of lower extremity DVT/PE 10/05/2022
-Hold Eliquis Start heparin drip due to history above
#CAD s/p stent
#Hx troponin elevation January 2023 with peak 0.062
-cont Lipitor 20 mg hs, metoprolol
#Dementia�mild/mod
-Patient oriented to name, place, knows he lives at a retirement with roommates, president, year
#Pacemaker hx
#HLD
cont cont Lipitor 20 mg hs
#Chronic Neuropathy
- cont gabapentin , Tramadol prn mod pain
# Gastric Muscle spasms
cont dicylomine 20 mg tid
#BPH
Monitor I/o
-Bladder scan protocol
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
OTHER PMH:
aspiration pneumonitis
Fatty liver
Hiatal hernia
Dysphagia due to poor dentition
Dvt proph
- IV heparin gtt
Full code per Pt
Anticipated Discharge: > 48 hours
Subjective/Interval History
-
Date of Service: July 04, 2025
states of R hip pain currently
denies any chest pain at rest or exertion
at times uses walker or wheelchair at times
Objective Data
-
Labs:
Laboratory Results
07/04/25 07/04/25 07/04/25
00:32 07:32 15:30
WBC 7.9
Hgb 14.3
Hct 43.6
Plt Count 180
APTT 83.5 H 149.2 H Pending
Sodium 138
Potassium 4.7
Chloride 108 H
Carbon Dioxide 22
BUN 21 H
Creatinine 0.8
Glucose 124 H
Calcium 8.7
Total Bilirubin 1.6 H
AST 18
ALT 22
Alkaline Phosphatase 71
Vital Signs:
Vital Signs
Temp Pulse Resp BP Pulse Ox
99.9 F 77 20 121/66 93
07/04/25 11:13 07/04/25 11:13 07/04/25 11:13 07/04/25 11:13 07/04/25 11:13
I&O
07/03/25 07/04/25 07/05/25
06:59 06:59 06:59
Intake Total 0 / 0
Output Total 150 / 150
Balance -150 / -150
Data Reviewed
-
Total Time Spent with Patient (in minutes): 55
[2025-07-04] MEDS: ROBITUSSIN 200 MG PO (12:45)
--- NOTE | 2025-07-04 16:07 | CON.CAR ---
Addendum entered and electronically signed by Clem Bailey MD 07/04/25 17:42:
I saw and examined the patient.
The Bark Scaler's note was reviewed and I agree with the note.
Comment: Briefly, 89-year-old man past medical history of CAD with prior PCI, bundle branch block status post permanent pacemaker and COPD on 2 to 3 L home O2 who presents after mechanical fall and was found to have right hip fracture. Cardiology
is asked to evaluate for preoperative cardiovascular risk stratification.
No cardiac complaints including no chest discomfort or dyspnea
Overall appears euvolemic on exam
proBNP is not elevated
Echo from earlier this year shows normal LVEF and no high-grade valve disease
Patient is at elevated but not prohibitive risk to proceed with surgery. Given high morbidity/mortality of unrepaired hip fracture, benefits of surgery likely outweigh the risk.
Would not recommend any further cardiac testing at this point
Original Note:
Consultation
Consultation Request
Date/Time Consultation Requested: 07/04/2025
Date/Time Consultation Performed: 07/04/2025
Requesting Provider: Dr. Joyce
Performing Provider: Janet Chacon PA-C for Dr. Bailey
Reason for Consultation: Preoperative clearance for hip surgery
Medical History
-
History of Present Illness:
Patient is an 89 yo M resident of [facility] with PMH of CAD with OR in 2006 with PCI x2 at [facility] further details unknown, HTN, HLD, COPD, chronic hypoxic respiratory failure on 2-3L NC at baseline, alternating BBB s/p Biotronik DC PPM 2021,
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 He has history of DVT/PE diagnosed 09/2022 post L hip replacement 05/2022 and and had pulmonary embolism in November 2024 while off anticoagulation and was restarted on Eliquis which she has maintained
since that time. He is now presenting with mechanical fall where patient reports right leg buckled after getting off commode resulting in fall on right hip/leg. Patient presented to emergency department with hip pain. Chest x-ray showed acute
fracture through the transcervical right femoral neck with superior displacement of the distal fracture fragment. Patient seen by orthopedics with plan to undergo right hip hemiarthroplasty. Cardiology asked to see patient for preoperative risk
assessment.
Patient seen and examined. Patient lying in bed complaining of right hip pain. Currently wearing oxygen and appears to be mildly short of breath. Patient is a poor historian and demented. History is obtained by collaborating providers and
medical records
PMH:
Pulmonary embolism November 2024 on chronic anticoagulation
History of DVT/PE 09/2022
History of L hip fracture s/p repair 04/2022
CAD with OR s/p PCI x2 2006 at [facility],
alternating BBB s/p Biotronik DC PPM 2021
HTN
HLD
COPD on chronic oxygen 2 to 3 L
Dementia
Chronic neuropathy
Anxiety/depression
Fatty liver
Hiatal hernia
Past Medical History
Past Medical History: Other (in HPI)
Past Surgical History: Cardiac (Cardiac stent, Biotronik pacemaker) and Orthopedic (Left hip hemiarthroplasty 2021)
Social History
Tobacco: Former Smoker
Alcohol: None
Drug: None
Living: [facility] ([facility])
Employment: Retired
Family History
Family History: Unable to Obtain
Allergies / Home Medications
Allergy/AdvReac Type Severity Reaction Status Date / Time
No Known Allergies Allergy Verified 02/09/23 09:11
�Medication �Instructions �Recorded �Confirmed �Type
acetaminophen 325 mg tablet 650 mg PO Q8HPRN PRN mild pain 06/17/22 07/04/25 History
albuterol sulfate 90 mcg/actuation 2 puff inhalation R Q4 06/17/22 07/04/25 History
aerosol inhaler (ProAir HFA) Lung/breathing issues
amlodipine 2.5 mg tablet 2.5 mg PO DAILY Blood pressure 06/17/22 07/04/25 History
atorvastatin 20 mg tablet 20 mg PO DAILY High cholesterol 06/17/22 07/04/25 History
gabapentin 100 mg capsule 200 mg PO TID Pain 06/17/22 07/04/25 History
isosorbide mononitrate 30 mg 30 mg PO DAILY Heart 06/17/22 07/04/25 History
tablet,extended release 24 hr disease/condition
umeclidinium 62.5 mcg-vilanterol 1 inh inhalation R DAILY 06/17/22 12/19/24 History
25 mcg/actuation powdr for Lung/breathing issues
inhalation (Anoro Ellipta)
melatonin 3 mg tablet 6 mg PO HS Sleep 07/22/22 07/04/25 History
ipratropium 0.5 mg-albuterol 3 mg 3 ml inhalation R Q6HPRN PRN copd 10/05/22 07/04/25 History
(2.5 mg base)/3 mL nebulization
soln
multivitamin 1 tab PO DAILY Supplement 10/05/22 07/04/25 History
sertraline 25 mg tablet 25 mg PO DAILY Mental 10/05/22 07/04/25 History
Health/Anxiety
diclofenac sodium 1 % topical gel 2 g topical BID LEFT KNEE, RIGHT 02/09/23 07/04/25 History
SHOULDER
dicyclomine 20 mg tablet 20 mg PO TID Muscle spasms 02/09/23 07/04/25 History
omega 2-qvi-gam-fish oil 1,000 mg 1 cap PO DAILY Supplement 02/09/23 07/04/25 History
(120 mg-180 mg) capsule (Fish Oil)
ondansetron HCl 4 mg tablet 4 mg PO Q6H PRN NAUSEA 02/09/23 07/04/25 History
apixaban 5 mg tablet (Eliquis) 5 mg PO BID #60 tabs 12/26/24 07/04/25 Rx
apixaban 5 mg tablet (Eliquis) 10 mg (2 x 5 mg) PO BID 4 days #16 12/26/24 Rx
tabs
metoprolol succinate 25 mg 12.5 mg (1/2 x 25 mg) PO BID #60 12/26/24 07/04/25 Rx
tablet,extended release 24 hr tabs
prednisone 10 mg tablet See Rx Instructions .Route 12/26/24 Rx
.COMPLEX #10 tabs
tramadol 50 mg tablet 50 mg PO BIDPRN PRN moderate 12/26/24 07/04/25 Rx
severe pain #5 tabs
Review of Systems
-
Unable to obtain full review of systems at this time due to: Dementia
History Source: [facility] and Coordinating Provider
Physical Exam
Vital Signs
Temp Pulse Resp BP Pulse Ox
99.9 F 77 20 121/66 93
07/04/25 11:13 07/04/25 11:13 07/04/25 11:13 07/04/25 11:13 07/04/25 11:13
GEN: Lying in bed, complaining of right hip pain, on oxygen appears to be mildly short of breath, warm to touch
HEENT: supple, anicteric, mmm
LUNGS: Mildly decreased breath sounds bilaterally although patient effort is somewhat poor, diffuse bilateral wheezing; wearing oxygen
CV: Reg, S1/S2, 1/6 syst murmur, no rub or gallop
ABD: soft, BS+, NT/ND
EXT: No edema, clubbing or cyanosis
NEURO: Gross non-focal
SKIN: No rash, warm, dry, pink
Lab Results
07/04/25 07:32
07/04/25 07:32
Eqo-G-Mblufmxavzd Pept 646 pg/ml 07/03/25 13:48
Impression / Plan
-
Primary Inventory Control/Shipping Receiving: Dr. Valentine of [facility]
Assessment:
Presented 07/03/2025 with mechanical fall resulting in right hip pain
Right hip fracture
Pulmonary embolism November 2024 on chronic anticoagulation
History of DVT/PE 09/2022
History of L hip fracture s/p repair 04/2022
CAD with OR s/p PCI x2 2006 at [facility],
alternating BBB s/p Biotronik DC PPM 2021
HTN
HLD
COPD on chronic oxygen 2 to 3 L
Dementia
Chronic neuropathy
Anxiety/depression
Fatty liver
Hiatal hernia
ECHO 09/26/2022: EF 55 to 60%, stage II diastolic dysfunction, mildly dilated left atrium, mild with peak/mean gradients 19/13 mmHg, DARIO 1.5 cm�, mild AR
Echo 12/19/2024: EF 50-55%, trace MR, mild to moderate with peak/mean gradients 21/13 mmHg, DARIO 1.3cm2, trace AR, mild TR, estimated PAP 35 mmHg, aortic root mildly dilated, 4.0 at sinus of Valsalva
Plan:
-Presented 07/03/2025 with mechanical fall resulting in right hip pain resulting in right hip fracture with plan to undergo right hip hemiarthroplasty on 07/05/2025
- History of PE in November 2024, DVT/PE 2021 and now maintained on chronic anticoagulation. Eliquis currently on hold as of 07/03/2025 in anticipation of surgical repair. Continue IV heparin while patient off anticoagulation
- proBNP unremarkable at 646. Patient has no evidence of heart failure or volume overload on examination.
- Chest x-ray with left basilar opacity with large hiatal hernia, no evidence of pulmonary edema or pleural effusions.
- Patient has history of prior PCI stenting in 2006. Prior echocardiogram in November 2024 shows preserved ejection fraction with mild to moderate aortic stenosis. EKG stable demonstrating ventricular paced rhythm.
- Review of telemetry shows ventricular paced rhythm without evidence of arrhythmia
- Overall he appears to be stable from a cardiac standpoint. He is at moderate to high but not prohibitive risk to proceed with hip surgery. Would monitor on telemetry perioperatively and postoperatively.
- Continue Toprol, amlodipine and isosorbide
- Of note patient was warm to touch ( temp 100.0) and patient was wheezing on examination. I personally brought this to hospitalist (Dr. Joyce) and nursing (Gila) attention. Plan was to order nebulizer
Data Reviewed
-
EKG: Report Reviewed by me, Discussed with Physician, Discussed with Nurse and Discussed with Patient
Radiology: Report Reviewed by me, Discussed with Physician, Discussed with Nurse and Discussed with Patient
Labs: Labs Reviewed by me, Discussed with Physician, Discussed with Nurse and Discussed with Patient
Old Records: Reviewed
[2025-07-04] MEDS: DUONEB 3 ML INH ×2 (17:25→19:14)
[2025-07-04 17:40] LABS: APTT 70.8 Sec (23.4-35.0)
[2025-07-04] MEDS: DECADRON 6 MG IV (17:40)
[2025-07-04] MEDS: HEPARIN 3600 UNITS IV (17:58)
--- NOTE | 2025-07-04 18:01 | PTCARENOTE ---
Received patient this am AAOx3. Pt forgetful. Pt tolerated diet well. Pt incontinent of large amounts of urine. Pt difficulty to turn secondary to pain from right fractured hip s/[facility] Joyce made aware. Attempted Bolanos
insertion as ordered. Pt screamed an was not cooperative. Bolanos ended up not being inserted. Condom Catheter placed without difficulty. Pt complained of pain in right hip. Medicated with IV Morphine PRN with relief. Pt with a productive cough for
vazquez sputum. Made aware. Pt medicated with Robitussin with relief. 1720 Pt with increased inspiratory an expiratory wheezes. Dr. Joyce made aware. Pt medicated with IV Decadron as ordered. Made patient comfortable. Cont to assess patient
status.
[2025-07-04] MEDS: MELATONIN 6 MG PO (21:46)
[2025-07-05 01:10] LABS: APTT 167.1 Sec (23.4-35.0)
[2025-07-05] MEDS: MORPHINE SULFATE 2 MG IV ×3 (03:19→13:10)
[2025-07-05 03:29] VITALS: BP 115/78
[2025-07-05] MEDS: HEPARIN 25000 UNITS/250 ML IV ×2 (04:54→23:29)
--- NOTE | 2025-07-05 05:19 | W.PN.UPDATE ---
Update Note
Progress Note Update
89-year-old male with mechanical fall DOI 03 July 2025 with an impacted and displaced right femoral neck fracture ambulatory at baseline with assistive devices.
- Recommended for operative intervention of right hip hemiarthroplasty
- Consent obtained and in patient's chart
- Tentative for OR 06 July under direction of Dr. Estevez - medical/cardiac optimization obtained and no further testing required
- Regular diet today, N.p.o. at midnight
- Bed rest and pain control today
- Antibiotics and irrigation products for OR on order
- Continue hold of Eliquis at this time
[2025-07-05 05:52] VITALS: BMI 27.6
[2025-07-05 07:00] VITALS: BP 114/65
[2025-07-05] MEDS: DUONEB 3 ML INH ×4 (07:29→19:21)
[2025-07-05 08:26] LABS: Hematocrit 40.5 % (39.0-52.0); Hemoglobin 13.7 g/dL (13.0-18.0); Mean Corp Hgb Conc. 33.8 g/dL (33.0-37.0); Mean Corpuscular Volume 91.4 fL (80.0-94.0); Nucleated Red Blood Cells % 0 % (-); Platelet Count 169 10^3/uL (130-400); Red Cell Dist. Width 13.3 % (11.5-14.5)
[2025-07-05 08:29] LABS: APTT 59.1 Sec (23.4-35.0)
[2025-07-05] MEDS: IMDUR (EXTENDED RELEASE) 30 MG PO (08:55)
[2025-07-05] MEDS: TOPROL XL 12.5 MG PO ×2 (08:55→20:54)
[2025-07-05] MEDS: ZOLOFT 25 MG PO (08:55)
[2025-07-05] MEDS: NEURONTIN 200 MG PO ×3 (08:55→22:18)
[2025-07-05] MEDS: NORVASC 2.5 MG PO (08:55)
[2025-07-05] MEDS: LIPITOR 20 MG PO (08:55)
[2025-07-05] MEDS: THERAGRAN 1 TABLET PO (08:55)
[2025-07-05 08:58] LABS: ALT (SGPT) 18 U/L (0-50); AST (SGOT) 15 U/L (17-59); Albumin 3.8 g/dl (3.5-5.0); Alkaline Phosphatase 66 U/L (38-126); Blood Urea Nitrogen 20 mg/dl (9-20); Calcium 9.2 mg/dl (8.4-10.2); Carbon Dioxide 27 mmol/L (22-30); Chloride 104 mmol/L (98-107); Estimated Creatinine Clearance 63 ml/min; Glucose 152 mg/dl (70-99); Potassium 4.8 mmol/L (3.5-5.1); Sodium 136 mmol/L (135-145); Total Protein 6.4 g/dl (6.3-8.2); eGFR > 60.00
[2025-07-05] MEDS: HEPARIN 7200 UNITS IV (09:03)
[2025-07-05 11:18] VITALS: BP 118/68
--- NOTE | 2025-07-05 11:53 | W.PN.HOSP.TC ---
Today's Communication/Plan
-
OR planned for 12pm. STOP HEP GTT AT 6AM
Continue with nebulizer
Low-dose steroids
Pain control
Assessment / Plan
Assessment / Plan
general: Conversant and Pain; No Fever or Chills
HEENT: NormoCephalic, Anicteric, Moist mucous membranes, Atraumatic, [place] Conjunctivae, No Ptosis and Oxygen (Chronic 3 L nasal cannula)
Respiratory: Clear anteriorly.
Cardiac: S1/S2, Regular Rhythm and Murmur (2/6 systolic); No Rub, Gallop or Peripheral Edema
Breast: Deferred by me
GI: Soft, Non Tender, Non Distended, Normal Bowel Sounds and No Hepatosplenomegaly
Rectal: Deferred by Provider
Genito-urinary: Deferred by me
Musculoskeletal: No Clubbing, No Cyanosis, Edema, Right Lower Extremity (+1) and Other (Tenderness right greater trochanter secondary to current fracture, ; No Edema, Left Upper Extremity or Edema, Right Upper Extremity
Skin: Warm and Dry; No Rash
Neuro: AO x 3 (Oriented to person, place, [facility], year), Nonfocal/grossly intact, Cranial Nerves Intact and Other ([place] chronic); No Slurred Speech, Facial Droop or Tremors
Psych: Calm
#Mechanical fall with right hip fracture
-Hold Eliquis patient took on 07/03/2025 am.
-IV heparin drip no bolus-d/w with ortho. Recs stopping 6h before sugary. OR planned for 12pm. STOP HEP GTT AT 6AM
-Low-fat diet tonight
-Plan for surgery tomorrow.
-Pain control
-Consult Ortho Dr. Estevez aware
-EGK with paced rhythm. Patient with extensive cardiac history and and appreciate cardiology input setting of elevated but not prohibitive risk to proceed with surgery. Risk outweighs benefit.
#Fever on 07/04/25 0330 am.
-flu negative. Procal negative.
-ua neg. Blood culture in lab remains negative.
-wbc normal. no further episode of fevers.
# chronic hypoxic respiratory failure 3 L
# Acute mild COPD exacerbation
Started patient on nebulizer treatment
Low-dose IV systemic steroids for now
Remains at baseline oxygen of 3 L.
# Chronic heart failure history preserved EF
I/O,, daily weight
No reported diuretics
-Continue supplemental O2
-bnp at 646.
-CXR with atelectasis.
#Extensive bilateral PE November 2024
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
- Patient to be on lifelong Eliquis
-Hold Eliquis Start heparin drip due to history above
#HTN�benign
- Continue isosorbide 30 mg daily, metoprolol succinate 12.5 mg twice daily
#Hx of lower extremity DVT/PE 10/05/2022
-Hold Eliquis Start heparin drip due to history above
#CAD s/p stent
#Hx troponin elevation January 2023 with peak 0.062
-cont Lipitor 20 mg hs, metoprolol
#Dementia�mild/mod
-Patient oriented to name, place, knows he lives at a [facility] with roommates, president, year
#Pacemaker hx
#HLD
cont cont Lipitor 20 mg hs
#Chronic Neuropathy
- cont gabapentin , Tramadol prn mod pain
# Gastric Muscle spasms
cont dicylomine 20 mg tid
#BPH
Monitor I/o
-Bladder scan protocol
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
OTHER PMH:
aspiration pneumonitis
Fatty liver
Hiatal hernia
Dysphagia due to poor dentition
Dvt proph
- IV heparin gtt
Full code per Pt
Discussed with orthopedic
Anticipated Discharge: > 48 hours
Subjective/Interval History
-
Date of Service: July 05, 2025
states of R hip pain
received IV morphine earlier today
Able to speak in complete sentences.
Denies any productive cough
Objective Data
-
Labs:
Laboratory Results
07/05/25 07/05/25 07/05/25
00:22 07:32 15:15
WBC 7.2
Hgb 13.7
Hct 40.5
Plt Count 169
APTT 167.1 H* 59.1 H Pending
Sodium 136
Potassium 4.8
Chloride 104
Carbon Dioxide 27
BUN 20
Creatinine 0.8
Glucose 152 H
Calcium 9.2
Total Bilirubin 1.3
AST 15 L
ALT 18
Alkaline Phosphatase 66
Vital Signs:
Vital Signs
Temp Pulse Resp BP Pulse Ox
98.4 F 86 18 118/68 91
07/05/25 11:18 07/05/25 11:18 07/05/25 11:18 07/05/25 11:18 07/05/25 11:18
I&O
07/04/25 07/05/25 07/06/25
06:59 06:59 06:59
Intake Total 0 / 0 540 / 540
Output Total 150 / 150 550 / 550
Balance -150 / -150 -10 / -10
Data Reviewed
-
Total Time Spent with Patient (in minutes): 55
[2025-07-05] MEDS: DECADRON 4 MG IV ×2 (13:11→23:30)
[2025-07-05 15:10] VITALS: BP 126/60
--- NOTE | 2025-07-05 15:29 | CM ---
Met with patient to obtain information for assessment. Patient is [facility]. Patient stated that he is an LTC resident from [facility]. He thinks he is a bed hold. Will call to confirm status. Patient uses a w/c for long distances and short distance
he uses a walker. He wears o2 prn he stated about 2 liters at night. He receives assistance with his dressing, bathing and all other ADLs. He would like to return to [place]. Is agreeable to SNF there. Will send referral.
Plan: Case management will continue to follow and assist with discharge planning. Back to [facility] LTC/SNF.
[2025-07-05 15:57] LABS: APTT 83.1 Sec (23.4-35.0)
--- NOTE | 2025-07-05 16:12 | W.PN.CARDCBS ---
Addendum entered and electronically signed by Tristan Duran MD 07/05/25 19:40:
89-year-old man who resides at [facility] with a mechanical fall and a right hip fracture on July 03.
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
on chronic oxygen, dementia, neuropathy, anxiety depression and hiatal hernia
Outpatient meds include Eliquis 5 twice daily, amlodipine 2.5 daily, atorvastatin 20 mg a day, diclofenac topically, dicyclomine, gabapentin, DuoNebs, isosorbide mononitrate, metoprolol ER 12.5, sertraline, tramadol, and oral
Current meds: IV heparin, dexamethasone, Plasma-Lyte, DuoNebs, sertraline, metoprolol ER 12.5 twice daily isosorbide mononitrate 30 a day, amlodipine 2.5 daily atorvastatin 20 mg a day
118/68, pulse 86, respiratory rate 18, weight is 84.9 kg, pleasant, hard of hearing, complaining of right hip pain, head neck exam unremarkable, lungs are clear, regular rate and rhythm, soft systolic murmur, JVD okay, external rotation of right
leg, 2+ edema good pulses,
Hemoglobin 13.7, BUN and creatinine are 20 and 0.8, potassium is 4.8
ECG from July 03 shows ventricularly paced rhythm, underlying atrial mechanism uncertain, sinus rhythm with markedly prolonged AV conduction present in November 2024
Impression:
Right hip fracture
CAD status post AZ and PCI times 12/2006
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
COPD on oxygen
Dementia
Anxiety/depression
Hypertension
Hyperlipidemia
Other diagnoses as below. Reviewed in detail and agree, unless otherwise specified.
Plan:
Proceed as planned to the OR tomorrow at elevated but not prohibitive cardiac risk given age, underlying CAD, possible atrial arrhythmia, etc.
Restart Eliquis when safe from a surgical standpoint.
Continue metoprolol postoperatively, other medications can be given or held as per anesthesia.
We will interrogate pacemaker postop.
Original Note:
Today's Communication / Plan
-
OK from cardiac standpoint to proceed to OR for R hip hemiarthroplasty 07/06
Impression / Plan
-
Primary Local Government Legislator: Dr. Valentine of [facility]
Assessment:
Presented with mechanical fall, R hip pain
Right hip fracture
Pulmonary embolism November 2024
h/o DVT/PE 09/2022
Chronic OAC w/ Eliquis
h/o L hip fracture s/p repair 04/2022
CAD
[place] s/p PCI x2 2006 at [facility],
Alternating BBB
s/p Biotronik DC PPM 2021
HTN
HLD
COPD on chronic oxygen 2 to 3 L
Dementia
Chronic neuropathy
Anxiety/depression
Fatty liver
Hiatal hernia
Echo 09/26/2022: EF 55 to 60%, stage II diastolic dysfunction, mildly dilated left atrium, mild with peak/mean gradients 19/13 mmHg, DARIO 1.5 cm�, mild AR
Echo 12/19/2024: EF 50-55%, trace MR, mild to moderate with peak/mean gradients 21/13 mmHg, DARIO 1.3cm2, trace AR, mild TR, estimated PAP 35 mmHg, aortic root mildly dilated, 4.0 at sinus of Valsalva
Plan:
-Presented after mechanical fall. R hip pain noted. Xray w/ R hip fracture. Plan is for R hip hemiarthroplasty in AM, 07/06.
-Cardiology consulted for pre-op evaluation.
-Appears stable from cardiac standpoint. No evidence of volume overload on exam. On 3L NC which is baseline w/ COPD.
-On Eliquis as OP due to h/o prior DVT/PE. On hold as of 07/03, on IV heparin. would continue with plan to resume Eliquis once safe post-op.
-h/o CAD w/ prior PCI in 2006. No anginal symptoms noted. Echo 11/2024 with preserved EF, mild to moderate as noted above.
-EKG stable. No arrhythmias noted on telemetry.
-Continue Toprol, amlodipine, and isosorbide. BP stable.
-He is at elevated but not prohibitive risk to proceed with hip surgery. Given high morbidity/mortality of unrepaired hip fracture, benefits of surgery likely outweigh the risk. Would monitor on telemetry perioperatively and postoperatively.
Progress Note - Local Government Legislator
Subjective
Date of Service: July 05, 2025
Objective
Labs:
07/05/25 07:32
07/05/25 07:32
Labs
Hgb 13.7 g/dL (13.0-18.0) 07/05/25 07:32
Hct 40.5 % (39.0-52.0) 07/05/25 07:32
Plt Count 169 10^3/uL (130-400) 07/05/25 07:32
APTT 83.1 Sec (23.4-35.0) H 07/05/25 15:34
Sodium 136 mmol/L (135-145) 07/05/25 07:32
Potassium 4.8 mmol/L (3.5-5.1) 07/05/25 07:32
BUN 20 mg/dl (9-20) 07/05/25 07:32
Creatinine 0.8 mg/dL (0.7-1.3) 07/05/25 07:32
Glucose 152 mg/dl (70-99) H 07/05/25 07:32
Vital Signs and I&O:
Vital Signs
Temp Pulse Resp BP Pulse Ox
98.4 F 97 24 118/68 92
07/05/25 11:18 07/05/25 15:25 07/05/25 15:25 07/05/25 11:18 07/05/25 15:25
Vital Signs
Temp Pulse Resp BP Pulse Ox
98.4 F 97 24 118/68 92
07/05/25 11:18 07/05/25 15:25 07/05/25 15:25 07/05/25 11:18 07/05/25 15:25
Intake & Output
07/03/25 07/04/25 07/05/25 07/06/25
06:59 06:59 06:59 06:59
Intake Total 0 / 0 540 / 540
Output Total 150 / 150 550 / 550
Balance -150 / -150 -10 / -10
Physical Exam
Physical Exam
GEN: NAD
LUNGS: 3L NC
CV: V-paced on tele
[2025-07-05 19:46] VITALS: BP 122/77
[2025-07-05] MEDS: MELATONIN 6 MG PO (22:18)
[2025-07-05 22:36] LABS: APTT 127.4 Sec (23.4-35.0)
[2025-07-05 23:25] VITALS: BP 126/81
[2025-07-06] VITALS (13 sets, daily range): BP systolic 109–150; BP diastolic 52–105; BMI 27.4
[2025-07-06] MEDS: MORPHINE SULFATE 2 MG IV ×3 (01:31→12:43)
[2025-07-06] MEDS: ULTRAM 50 MG PO (03:52)
[2025-07-06 05:33] LABS: Hematocrit 43.3 % (39.0-52.0); Hemoglobin 13.8 g/dL (13.0-18.0); Mean Corp Hgb Conc. 31.9 g/dL (33.0-37.0); Mean Corpuscular Volume 94.1 fL (80.0-94.0); Nucleated Red Blood Cells % 0 % (-); Platelet Count 188 10^3/uL (130-400); Red Cell Dist. Width 13.7 % (11.5-14.5)
[2025-07-06 05:50] LABS: APTT 43.8 Sec (23.4-35.0)
[2025-07-06 06:01] LABS: ALT (SGPT) 19 U/L (0-50); AST (SGOT) 16 U/L (17-59); Albumin 3.9 g/dl (3.5-5.0); Alkaline Phosphatase 65 U/L (38-126); Blood Urea Nitrogen 26 mg/dl (9-20); Calcium 9.3 mg/dl (8.4-10.2); Carbon Dioxide 31 mmol/L (22-30); Chloride 104 mmol/L (98-107); Estimated Creatinine Clearance 63 ml/min; Glucose 184 mg/dl (70-99); Potassium 4.7 mmol/L (3.5-5.1); Sodium 140 mmol/L (135-145); Total Protein 6.4 g/dl (6.3-8.2); eGFR > 60.00
[2025-07-06] MEDS: DUONEB 3 ML INH ×4 (07:34→21:55)
[2025-07-06] MEDS: IMDUR (EXTENDED RELEASE) 30 MG PO (08:27)
[2025-07-06] MEDS: ZOLOFT 25 MG PO (08:27)
[2025-07-06] MEDS: THERAGRAN 1 TABLET PO (08:27)
[2025-07-06] MEDS: LIPITOR 20 MG PO (08:27)
[2025-07-06] MEDS: TOPROL XL 12.5 MG PO (08:27)
[2025-07-06] MEDS: FLUSH (NSS) 1 FLUSH IV ×3 (08:28→12:43)
[2025-07-06] MEDS: NORVASC 2.5 MG PO (08:28)
[2025-07-06] MEDS: NEURONTIN 200 MG PO ×2 (08:28→16:40)
--- NOTE | 2025-07-06 10:46 | W.PN.HOSP.TC ---
Today's Communication/Plan
-
Continue bronchodilators
Continue with IV steroids can be weaned off starting next 24 hours
Monitor closely.
Remains n.p.o.
Assessment / Plan
Assessment / Plan
general: Conversant and Pain; No Fever or Chills
HEENT: NormoCephalic, Anicteric, Moist mucous membranes, Atraumatic, [place] Conjunctivae, No Ptosis and Oxygen (Chronic 3 L nasal cannula)
Respiratory: Clear anteriorly.
Cardiac: S1/S2, Regular Rhythm and Murmur (2/6 systolic); No Rub, Gallop or Peripheral Edema
Breast: Deferred by me
GI: Soft, Non Tender, Non Distended, Normal Bowel Sounds and No Hepatosplenomegaly
Rectal: Deferred by Provider
Genito-urinary: Deferred by me
Musculoskeletal: No Clubbing, No Cyanosis, Edema, Right Lower Extremity (+1) and Other (Tenderness right greater trochanter secondary to current fracture, ; No Edema, Left Upper Extremity or Edema, Right Upper Extremity
Skin: Warm and Dry; No Rash
Neuro: AO x 3 (Oriented to person, place, fci, year), Nonfocal/grossly intact, Cranial Nerves Intact and Other (TANANA chronic); No Slurred Speech, Facial Droop or Tremors
Psych: Calm
#Mechanical fall with right hip fracture
-Hold Eliquis patient took on 07/03/2025 am.
-IV heparin drip no bolus- Per orthopedic to stop heparin drip at 6 AM.
-Plan for surgery today
-Pain control
-Consult Ortho Dr. Estevez aware
-EGK with paced rhythm. Patient with extensive cardiac history and and appreciate cardiology input setting of elevated but not prohibitive risk to proceed with surgery. Risk outweighs benefit.
#Fever on 07/04/25 0330 am.
-flu negative. Procal negative.
-ua neg. Blood culture in lab remains negative.
-wbc normal. no further episode of fevers.
# chronic hypoxic respiratory failure 3 L
# Acute mild COPD exacerbation
Started patient on nebulizer treatment
Low-dose IV systemic steroids for now and can probably start weaning off in the next 24 hours
Remains at baseline oxygen of 3 L.
# Chronic heart failure history preserved EF
I/O,, daily weight
No reported diuretics
-Continue supplemental O2
-bnp at 646.
-CXR with atelectasis.
#Extensive bilateral PE November 2024
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
- Patient to be on lifelong Eliquis
-Hold Eliquis Start heparin drip due to history above
#HTN�benign
- Continue isosorbide 30 mg daily, metoprolol succinate 12.5 mg twice daily
#Hx of lower extremity DVT/PE 10/05/2022
-Hold Eliquis Start heparin drip due to history above
#CAD s/p stent
#Hx troponin elevation January 2023 with peak 0.062
-cont Lipitor 20 mg hs, metoprolol
#Dementia�mild/mod
-Patient oriented to name, place, knows he lives at a fci with roommates, president, year
#Pacemaker hx
#HLD
cont cont Lipitor 20 mg hs
#Chronic Neuropathy
- cont gabapentin , Tramadol prn mod pain
# Gastric Muscle spasms
cont dicylomine 20 mg tid
#BPH
Monitor I/o
-Bladder scan protocol
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
OTHER PMH:
aspiration pneumonitis
Fatty liver
Hiatal hernia
Dysphagia due to poor dentition
Dvt proph
- SCDs
Full code per Pt
Anticipated Discharge: > 48 hours
Subjective/Interval History
-
Date of Service: July 06, 2025
remains npo
states of Hip pain
awaiting for surgery
denies sob
Objective Data
-
Labs:
Laboratory Results
07/06/25
05:24
WBC 9.2
Hgb 13.8
Hct 43.3
Plt Count 188
APTT 43.8 H
Sodium 140
Potassium 4.7
Chloride 104
Carbon Dioxide 31 H
BUN 26 H
Creatinine 0.8
Glucose 184 H
Calcium 9.3
Total Bilirubin 1.0
AST 16 L
ALT 19
Alkaline Phosphatase 65
Vital Signs:
Vital Signs
Temp Pulse Resp BP Pulse Ox
97.6 F 76 16 122/70 97
07/06/25 07:00 07/06/25 08:28 07/06/25 07:38 07/06/25 08:28 07/06/25 08:26
I&O
07/05/25 07/06/25 07/07/25
06:59 06:59 06:59
Intake Total 540 / 540 0 / 0
Output Total 550 / 550 450 / 450
Balance -10 / -10 -450 / -450
[2025-07-06] MEDS: DECADRON 4 MG IV (12:24)
--- NOTE | 2025-07-06 16:42 | PTCARENOTE ---
Pt drowsy but arousable; alert, oriented to self only when awake; anxious/forgetful. Moves arms randomly; limits movement of legs d/t rt hip discomfort. VSS. Telemetry:V-paced rhythm. On nc 3 lpm- pulse ox 94%, no SOB noted. Abd obese, soft, NPO
for OR maintained. Incont urine. Resting in bed at present. Will continue to monitor.
--- NOTE | 2025-07-06 17:11 | W.PN.CARDCBS ---
Today's Communication / Plan
-
ORIF with orthopedics today following mechanical fall and right hip fracture
IV heparin while off Eliquis with history of recurrent DVT/PE
Please check postoperative EKG
Impression / Plan
-
Primary Plumbing Mechanic: Dr. Valentine of [facility]
Assessment:
Presented with mechanical fall, R hip pain
Right hip fracture
Pulmonary embolism November 2024
h/o DVT/PE 09/2022
Chronic OAC w/ Eliquis
h/o L hip fracture s/p repair 04/2022
CAD
[place] s/p PCI x2 2006 at [facility],
Alternating BBB
s/p Biotronik DC PPM 2021
HTN
HLD
COPD on chronic oxygen 2 to 3 L
Dementia
Chronic neuropathy
Anxiety/depression
Fatty liver
Hiatal hernia
Echo 09/26/2022: EF 55 to 60%, stage II diastolic dysfunction, mildly dilated left atrium, mild with peak/mean gradients 19/13 mmHg, DARIO 1.5 cm�, mild AR
Echo 12/19/2024: EF 50-55%, trace MR, mild to moderate with peak/mean gradients 21/13 mmHg, DARIO 1.3cm2, trace AR, mild TR, estimated PAP 35 mmHg, aortic root mildly dilated, 4.0 at sinus of Valsalva
Plan:
-Presented after mechanical fall and right hip fracture.
-Appears stable from cardiac standpoint. No evidence of volume overload on exam. On 3L NC which is baseline w/ COPD.
-Eliquis as OP due to h/o prior DVT/PE. On hold as of 07/03 on IV heparin.
-plan to resume Eliquis once safer post-op.
-h/o CAD w/ prior PCI in 2006. No anginal symptoms noted. Echo 11/2024 with preserved EF, mild to moderate as noted above.
-EKG stable. No arrhythmias noted on telemetry.
-Continue Toprol, amlodipine, and isosorbide. BP stable.
-He is at elevated but not prohibitive risk to proceed with hip surgery. Given high morbidity/mortality of unrepaired hip fracture, benefits of surgery likely outweigh the risk. Would monitor on telemetry perioperatively and postoperatively.
-Plan is for R hip hemiarthroplasty today
-Please check postop EKG
Progress Note - Plumbing Mechanic
Subjective
Date of Service: July 06, 2025
Patient was seen and examined this morning. N.p.o. awaiting surgery. Offers no complaints
Objective
Labs:
07/06/25 05:24
07/06/25 05:24
Labs
Hgb 13.8 g/dL (13.0-18.0) 07/06/25 05:24
Hct 43.3 % (39.0-52.0) 07/06/25 05:24
Plt Count 188 10^3/uL (130-400) 07/06/25 05:24
APTT 43.8 Sec (23.4-35.0) H 07/06/25 05:24
Sodium 140 mmol/L (135-145) 07/06/25 05:24
Potassium 4.7 mmol/L (3.5-5.1) 07/06/25 05:24
BUN 26 mg/dl (9-20) H 07/06/25 05:24
Creatinine 0.8 mg/dL (0.7-1.3) 07/06/25 05:24
Glucose 184 mg/dl (70-99) H 07/06/25 05:24
Vital Signs and I&O:
Vital Signs
Temp Pulse Resp BP Pulse Ox
97.6 F 92 16 143/68 94
07/06/25 11:00 07/06/25 15:56 07/06/25 15:56 07/06/25 11:00 07/06/25 16:42
Vital Signs
Temp Pulse Resp BP Pulse Ox
97.6 F 92 16 143/68 94
07/06/25 11:00 07/06/25 15:56 07/06/25 15:56 07/06/25 11:00 07/06/25 16:42
Intake & Output
07/04/25 07/05/25 07/06/25 07/07/25
06:59 06:59 06:59 06:59
Intake Total 0 / 0 540 / 540 0 / 0
Output Total 150 / 150 550 / 550 450 / 450
Balance -150 / -150 -10 / -10 -450 / -450
Physical Exam
Physical Exam
GEN: 89-year-old gentleman on nasal cannula O2
LUNGS: Decreased bilaterally but clear
CV: V-paced on tele; Regular. Positive S1-S2. 2/6 SM. + Device
abd: Soft. Positive bowel
ext: Right hip fracture. No edema
[2025-07-06] MEDS: DUONEB INH (19:34)
--- NOTE | 2025-07-06 22:15 | W.IMMPOSTOP ---
Surgical Immed Post Op Note
-
Primary Surgeon: Matt Graves MD
Assisting Surgeon: Dee Castle PA-C
Pre-op Diagnosis: right femoral neck fracture
Post-op Diagnosis: right femoral neck fracture
Procedure Performed: right hip hemiarthroplasty
Anesthesia Type: spinal
Specimen / Cultures: none
Estimated Blood Loss: 50mL
Complications: none apparent
Operative Findings: right subcapital femoral neck fracture
Implants: [employer] Versys Heritage size 14 stem, +0 neck, 50mm endoprosthetic head
Operative dictation #: [id number]
--- NOTE | 2025-07-06 22:40 | PTCARENOTE ---
Pt arrived to 2S from PACU @ 22:40. Pt on simple mask @ 8L, wearing foot pumps. Aroused verbally, pt states no pain at this time. Aquacel on rt hip, scant old drainage circled by administrative intern. vital signs stable. Care ongoing.
[2025-07-06] MEDS: MELATONIN PO (23:45)
[2025-07-06] MEDS: TOPROL XL PO (23:48)
[2025-07-06] MEDS: NEURONTIN PO (23:50)
[2025-07-07] VITALS (7 sets, daily range): BP systolic 121–141; BP diastolic 66–85; PULSE 67–82; O2SAT 91; BMI 27.7
--- NOTE | 2025-07-07 00:30 | PTCARENOTE ---
Pt heparin drip held preop and eliquis stopped 07/03. No post op orders to continue or hold heparin or blood thinners. Contacted Dr. Estevez who advised that Eliquis will be restarted in AM.
[2025-07-07] MEDS: DECADRON 4 MG IV ×2 (00:45→12:10)
[2025-07-07] MEDS: ULTRAM 50 MG PO ×2 (03:18→17:55)
[2025-07-07] MEDS: ANCEF 5 IV ×2 (03:26→12:09)
[2025-07-07] MEDS: SENOKOT-S 1 TABLET PO ×3 (06:17→20:02)
[2025-07-07 06:37] LABS: Hematocrit 40.0 % (39.0-52.0); Hemoglobin 13.1 g/dL (13.0-18.0); Mean Corp Hgb Conc. 32.8 g/dL (33.0-37.0); Mean Corpuscular Volume 92.0 fL (80.0-94.0); Nucleated Red Blood Cells % 0 % (-); Platelet Count 207 10^3/uL (130-400); Red Cell Dist. Width 13.5 % (11.5-14.5)
--- NOTE | 2025-07-07 07:34 | W.PN.ORTHO ---
Today's Communication / Plan
-
POD#1 right hip hemiarthroplasty under the direction of Dr. Graves
--WBAT RLE. Ambulate with assistive device
--Hip precautions. Abductor pillow when in bed
--PT/OT
--Ok to resume Eliquis this morning
--Maintain dressing
--Hgb 13.1 on AM labs
--Pain management as needed
--Case management consult for discharge planning
--Will continue to follow
Assessment
.
Distal Motor Intact: Yes
Dressing:
Clean, dry and intact.
Plan
.
Surgery / Date: Right hip Chevy 07/06/25 Dr. Graves
DVT Prophylaxis: Other (Eliquis)
Activity:
Out of bed.
PT/OT
Subjective
.
.:
Patient resting comfortably in bed. Reports pain to the right hip
Vital Signs and Labs
.
Vital Signs and Labs:
Lab Results
07/07/25 06:14
Temp Pulse Resp BP Pulse Ox
98.2 F 83 18 123/80 95
07/07/25 03:05 07/07/25 03:05 07/07/25 03:05 07/07/25 03:05 07/07/25 03:05
Physical Exam
-
Directed exam of right hip. Primaseal dressing in place. Mild drainage to the distal aspect. +TTP of lateral hip. Thigh is soft and compressible. Able to plantarflex/dorsiflex the ankle. Wiggles all toes. Calf soft and nontender. NVI distally
[2025-07-07] MEDS: DUONEB 3 ML INH ×4 (07:37→18:16)
[2025-07-07] MEDS: ELIQUIS 5 MG PO ×2 (09:01→20:02)
[2025-07-07] MEDS: ZOLOFT 25 MG PO (09:02)
[2025-07-07] MEDS: NEURONTIN 200 MG PO ×3 (09:02→21:55)
[2025-07-07] MEDS: IMDUR (EXTENDED RELEASE) 30 MG PO (09:02)
[2025-07-07] MEDS: TOPROL XL 12.5 MG PO ×2 (09:02→19:59)
[2025-07-07] MEDS: THERAGRAN 1 TABLET PO (09:03)
[2025-07-07] MEDS: NORVASC 2.5 MG PO (09:03)
[2025-07-07] MEDS: MIRALAX 17 GRAMS PO (09:03)
[2025-07-07] MEDS: LIPITOR 20 MG PO (09:03)
[2025-07-07] MEDS: TYLENOL 650 MG PO ×3 (09:12→21:55)
--- NOTE | 2025-07-07 10:36 | W.PN.HOSP.TC ---
Today's Communication/Plan
-
Out of bed/rehab
Restart Eliquis
Wean off steroids in next 24 hours
Pain control
Assessment / Plan
Assessment / Plan
general: Conversant and Pain; No Fever or Chills
HEENT: NormoCephalic, Anicteric, Moist mucous membranes, Atraumatic, [place] Conjunctivae, No Ptosis and Oxygen (Chronic 3 L nasal cannula)
Respiratory: Clear anteriorly.
Cardiac: S1/S2, Regular Rhythm and Murmur (2/6 systolic); No Rub, Gallop or Peripheral Edema
Breast: Deferred by me
GI: Soft, Non Tender, Non Distended, Normal Bowel Sounds and No Hepatosplenomegaly
Rectal: Deferred by Provider
Genito-urinary: Deferred by me
Musculoskeletal: Right hip Aquacel dressing noted. Right hip swelling noted.
Skin: Warm and Dry; No Rash
Neuro: Awake, watching TV. Nonfocal grossly intact. Hard of hearing.
Psych: Calm
#Mechanical fall with right hip fracture
- Status post right hip hemiarthroplasty by Dr. Graves
- PT/OT
- Hip precautions
- Trend hemoglobin. This morning 13.1
- Pain control. Bowel regimen.
- Per orthopedic okay to restart anticoagulation.
#Fever on 07/04/25 0330 am.
-flu negative. Procal negative.
-ua neg. Blood culture in lab remains negative.
-wbc normal. no further episode of fevers.
# chronic hypoxic respiratory failure 3 L
# Acute mild COPD exacerbation
Started patient on nebulizer treatment
Continue with IV steroids for additional 24 hours
Remains at baseline oxygen of 3 L.
# Chronic heart failure history preserved EF
I/O,, daily weight
No reported diuretics
-Continue supplemental O2
-bnp at 646.
-CXR with atelectasis.
#Extensive bilateral PE November 2024
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
- Continue with Eliquis
#HTN�benign
- Continue isosorbide 30 mg daily, metoprolol succinate 12.5 mg twice daily
#Hx of lower extremity DVT/PE 10/05/2022
-Hold Eliquis Start heparin drip due to history above
#CAD s/p stent
#Hx troponin elevation January 2023 with peak 0.062
-cont Lipitor 20 mg hs, metoprolol
#Dementia�mild/mod
-Patient oriented to name, place, knows he lives at a longterm with roommates, president, year
#Pacemaker hx
#HLD
cont cont Lipitor 20 mg hs
#Chronic Neuropathy
- cont gabapentin , Tramadol prn mod pain
# Gastric Muscle spasms
cont dicylomine 20 mg tid
#BPH
Monitor I/o
-Bladder scan protocol
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
OTHER PMH:
aspiration pneumonitis
Fatty liver
Hiatal hernia
Dysphagia due to poor dentition
Dvt proph
- Eliquis
Full code per Pt
PT eval. Probably may require SNF.
Anticipated Discharge: 24 - 48 hours
Subjective/Interval History
-
Date of Service: July 07, 2025
Eating breakfast
Remains on baseline oxygen
Objective Data
-
Labs:
Laboratory Results
07/07/25
06:14
WBC 10.5
Hgb 13.1
Hct 40.0
Plt Count 207
Sodium Pending
Potassium Pending
Chloride Pending
Carbon Dioxide Pending
BUN Pending
Creatinine Pending
Glucose Pending
Calcium Pending
Total Bilirubin Pending
AST Pending
ALT Pending
Alkaline Phosphatase Pending
Vital Signs:
Vital Signs
Temp Pulse Resp BP Pulse Ox
99.3 F 77 16 121/66 93
07/07/25 07:10 07/07/25 09:02 07/07/25 07:39 07/07/25 09:02 07/07/25 07:39
I&O
07/06/25 07/07/25 07/08/25
06:59 06:59 06:59
Intake Total 0 / 0 1180 / 1180
Output Total 450 / 450 100 / 100
Balance -450 / -450 1080 / 1080
Data Reviewed
-
Total Time Spent with Patient (in minutes): 55
[2025-07-07] MEDS: DESENEX/MITRAZOL/ZEASORB 1 APPLIC TOPICAL ×2 (10:53→21:55)
--- NOTE | 2025-07-07 11:55 | W.PN.CARDCBS ---
Today's Communication / Plan
-
Stable cardiology status and back on Eliquis
Will sign off
Follow-up with [place] cardiology
Impression / Plan
-
Primary [employer] Emergency Services Manager: Dr. Valentine of [facility]
Assessment:
Presented with mechanical fall, R hip pain
Right hip fracture/status post repair 07/06/2025
Pulmonary embolism November 2024
h/o DVT/PE 09/2022
Chronic OAC w/ Eliquis
h/o L hip fracture s/p repair 04/2022
CAD
[place] s/p PCI x2 2006 at [facility],
Alternating BBB
s/p Biotronik DC PPM 2021
HTN
HLD
COPD on chronic oxygen 2 to 3 L
Dementia
Chronic neuropathy
Anxiety/depression
Fatty liver
Hiatal hernia
Echo 09/26/2022: EF 55 to 60%, stage II diastolic dysfunction, mildly dilated left atrium, mild with peak/mean gradients 19/13 mmHg, DARIO 1.5 cm�, mild AR
Echo 12/19/2024: EF 50-55%, trace MR, mild to moderate with peak/mean gradients 21/13 mmHg, DARIO 1.3cm2, trace AR, mild TR, estimated PAP 35 mmHg, aortic root mildly dilated, 4.0 at sinus of Valsalva
Plan:
Stable cardiology status status post hip repair fracture 07/06/2025
He is back on Eliquis
Stable from cardiology viewpoint
We will sign off, call with questions
Discussed with nursing
Progress Note - Railroad Emergency Services Manager
Subjective
Date of Service: July 07, 2025
No chest pain or shortness of breath.
Objective
Labs:
07/07/25 06:14
Labs
Hgb 13.1 g/dL (13.0-18.0) 07/07/25 06:14
Hct 40.0 % (39.0-52.0) 07/07/25 06:14
Plt Count 207 10^3/uL (130-400) 07/07/25 06:14
APTT 43.8 Sec (23.4-35.0) H 07/06/25 05:24
Sodium 140 mmol/L (135-145) 07/06/25 05:24
Potassium 4.7 mmol/L (3.5-5.1) 07/06/25 05:24
BUN 26 mg/dl (9-20) H 07/06/25 05:24
Creatinine 0.8 mg/dL (0.7-1.3) 07/06/25 05:24
Glucose 184 mg/dl (70-99) H 07/06/25 05:24
Vital Signs and I&O:
Vital Signs
Temp Pulse Resp BP Pulse Ox
99.3 F 78 15 133/74 94
07/07/25 07:10 07/07/25 11:29 07/07/25 11:29 07/07/25 11:00 07/07/25 11:29
Vital Signs
Temp Pulse Resp BP Pulse Ox
99.3 F 78 15 133/74 94
07/07/25 07:10 07/07/25 11:29 07/07/25 11:29 07/07/25 11:00 07/07/25 11:29
Intake & Output
07/05/25 07/06/25 07/07/25 07/08/25
06:59 06:59 06:59 06:59
Intake Total 540 / 540 0 / 0 1180 / 1180
Output Total 550 / 550 450 / 450 100 / 100
Balance -10 / -10 -450 / -450 1080 / 1080
Physical Exam
Physical Exam
General: Well developed, well nourished in NAD.
Neck: Supple, no JVD, HJR, carotids +2 B/L, no bruits bilaterally.
Heart: Non displaced PMI, RRR, no murmurs, No S3, S4, no rubs.
Lungs: Scattered rhonchi.
Extremities: No clubbing, cyanosis or edema bilaterally.
Neuro: Grossly nonfocal, awake, alert and oriented x3.
--- NOTE | 2025-07-07 13:43 | CM ---
PT recommends SNF when stable for discharge; referral sent to [facility] per patient's request
Plan: Discharge to [facility] when stable for discharge
[2025-07-07 15:01] LABS: ALT (SGPT) 17 U/L (0-50); AST (SGOT) 21 U/L (17-59); Albumin 3.9 g/dl (3.5-5.0); Alkaline Phosphatase 59 U/L (38-126); Blood Urea Nitrogen 30 mg/dl (9-20); Calcium 9.6 mg/dl (8.4-10.2); Carbon Dioxide 21 mmol/L (22-30); Chloride 108 mmol/L (98-107); Estimated Creatinine Clearance 63 ml/min; Glucose 207 mg/dl (70-99); Potassium 4.5 mmol/L (3.5-5.1); Sodium 138 mmol/L (135-145); Total Protein 6.1 g/dl (6.3-8.2); eGFR > 60.00
[2025-07-07] MEDS: TESSALON PERLES 200 MG PO (17:55)
[2025-07-07] MEDS: MELATONIN 6 MG PO (21:55)
[2025-07-08] MEDS: DECADRON 4 MG IV ×2 (00:50→13:14)
[2025-07-08] MEDS: TYLENOL 650 MG PO ×4 (04:14→20:57)
[2025-07-08 05:06] LABS: Hematocrit 39.4 % (39.0-52.0); Hemoglobin 13.1 g/dL (13.0-18.0); Mean Corp Hgb Conc. 33.2 g/dL (33.0-37.0); Mean Corpuscular Volume 91.6 fL (80.0-94.0); Nucleated Red Blood Cells % 0 % (-); Platelet Count 199 10^3/uL (130-400); Red Cell Dist. Width 13.5 % (11.5-14.5)
[2025-07-08 06:00] VITALS: BMI 27.9
[2025-07-08 07:43] VITALS: BP 136/84
[2025-07-08] MEDS: MIRALAX 17 GRAMS PO (07:49)
[2025-07-08] MEDS: THERAGRAN 1 TABLET PO (07:52)
[2025-07-08] MEDS: ELIQUIS 5 MG PO ×2 (07:53→20:55)
[2025-07-08] MEDS: DUONEB INH ×2 (07:53→13:48)
[2025-07-08] MEDS: NEURONTIN 200 MG PO ×3 (07:54→20:55)
[2025-07-08] MEDS: LIPITOR 20 MG PO (07:54)
[2025-07-08] MEDS: NORVASC 2.5 MG PO (07:55)
[2025-07-08] MEDS: TOPROL XL 12.5 MG PO ×2 (07:55→20:58)
[2025-07-08] MEDS: IMDUR (EXTENDED RELEASE) 30 MG PO (07:55)
[2025-07-08] MEDS: ZOLOFT 25 MG PO (07:55)
[2025-07-08] MEDS: SENOKOT-S 1 TABLET PO ×2 (07:56→20:56)
[2025-07-08] MEDS: ULTRAM 50 MG PO ×2 (07:56→20:57)
[2025-07-08] MEDS: DESENEX/MITRAZOL/ZEASORB 1 APPLIC TOPICAL ×2 (08:01→20:56)
[2025-07-08] MEDS: DUONEB 3 ML INH ×3 (08:01→17:55)
--- NOTE | 2025-07-08 08:42 | W.PN.ORTHO ---
Today's Communication / Plan
-
POD#2 right hip hemiarthroplasty under the direction of Dr. Graves
--WBAT RLE. Ambulate with assistive device
--Hip precautions for 6-8 weeks postop. Abductor pillow when in bed
--PT/OT
--Eliquis has been resumed
--There is dried bloody drainage to the distal aspect of the dressing, just about to the border. Discussed with RN, will change dressing the next time they roll the patient
--Hgb 13.1 on AM labs
--Pain management as needed
--Case management consult for discharge planning. Recommendation for SNF
--[place] can be removed at 2 weeks postop. If removed at SNF, follow up outpatient in 4 weeks. If jennifer not removed at SNF, follow up outpatient in 2 weeks
--Patient is orthopedically stable postop. Will sign off. Please reach out with any additional questions or concerns.
Assessment
.
Distal Motor Intact: Yes
Dressing:
Clean, dry and intact.
Plan
.
Surgery / Date: Right hip Chevy 07/06/25 Dr. Graves
DVT Prophylaxis: Other (Eliquis)
Activity:
Out of bed.
PT/OT
Subjective
.
.:
Patient resting comfortably in bed. He reports pain to the hip with movement
Vital Signs and Labs
.
Vital Signs and Labs:
Lab Results
07/08/25 04:32
07/07/25 06:14
Temp Pulse Resp BP Pulse Ox
98.1 F 73 16 136/84 92
07/08/25 07:43 07/08/25 07:43 07/08/25 07:43 07/08/25 07:43 07/08/25 08:02
Physical Exam
-
Directed exam of right hip. Primaseal dressing in place. Mild drainage to the distal aspect. +TTP of lateral hip. Thigh is soft and compressible. Able to plantarflex/dorsiflex the ankle. Wiggles all toes. Calf soft and nontender. NVI distally
[2025-07-08 10:50] VITALS: BP 132/75; PULSE 81; O2SAT 91
--- NOTE | 2025-07-08 12:21 | W.PN.HOSP.TC ---
Today's Communication/Plan
-
po prednisone taper
cont Eliquis
Await placement
cont nebulizer
Assessment / Plan
Assessment / Plan
general: Conversant and Pain; No Fever or Chills
HEENT: NormoCephalic, Anicteric, Moist mucous membranes, Atraumatic, [place] Conjunctivae, No Ptosis and Oxygen (Chronic 3 L nasal cannula)
Respiratory: Clear anteriorly.
Cardiac: S1/S2, Regular Rhythm and Murmur (2/6 systolic); No Rub, Gallop or Peripheral Edema
Breast: Deferred by me
GI: Soft, Non Tender, Non Distended, Normal Bowel Sounds and No Hepatosplenomegaly
Rectal: Deferred by Provider
Genito-urinary: Deferred by me
Musculoskeletal: Right hip Aquacel dressing noted. Right hip swelling noted with aquacell dressing noted
Skin: Warm and Dry; No Rash
Neuro: Awake, watching TV. Nonfocal grossly intact. Hard of hearing.
Psych: Calm
#Mechanical fall with right hip fracture
- Status post right hip hemiarthroplasty by Dr. Graves
- PT/OT
- Hip precautions
- Trend hemoglobin. This morning 13.1
- Pain control. Bowel regimen.
- Per orthopedic okay to restart anticoagulation.
#Fever on 07/04/25 0330 am.
-flu negative. Procal negative.
-ua neg. Blood culture in lab remains negative.
-wbc normal. no further episode of fevers.
# chronic hypoxic respiratory failure 3 L
# Acute mild COPD exacerbation
Continue nebulizer treatment
can stop further IV steroids. quick po prednisone taper.
Remains at baseline oxygen of 3 L.
# Chronic heart failure history preserved EF
I/O,, daily weight
No reported diuretics
-Continue supplemental O2
-bnp at 646.
-CXR with atelectasis.
#Extensive bilateral PE November 2024
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
- Continue with Eliquis
#HTN�benign
- Continue isosorbide 30 mg daily, metoprolol succinate 12.5 mg twice daily
#Hx of lower extremity DVT/PE 10/05/2022
-Eliquis restarted.
#CAD s/p stent
#Hx troponin elevation January 2023 with peak 0.062
-cont Lipitor 20 mg hs, metoprolol
#Dementia�mild/mod
-Patient oriented to name, place, knows he lives at a senior care with roommates, president, year
#Pacemaker hx
#HLD
cont cont Lipitor 20 mg hs
#Chronic Neuropathy
- cont gabapentin , Tramadol prn mod pain
# Gastric Muscle spasms
cont dicylomine 20 mg tid
#BPH
Monitor I/o
-Bladder scan protocol
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
OTHER PMH:
aspiration pneumonitis
Fatty liver
Hiatal hernia
Dysphagia due to poor dentition
Dvt proph
- Eliquis
Full code per Pt
PT/OT-SNF- CM aware. await placement.
Anticipated Discharge: Within 24 hours
Subjective/Interval History
-
Date of Service: July 08, 2025
states of R hip pain with activity
Objective Data
-
Labs:
Laboratory Results
07/08/25
04:32
WBC 10.2
Hgb 13.1
Hct 39.4
Plt Count 199
Vital Signs:
Vital Signs
Temp Pulse Resp BP Pulse Ox
98.1 F 73 16 136/84 92
07/08/25 07:43 07/08/25 07:43 07/08/25 07:43 07/08/25 07:43 07/08/25 08:02
I&O
07/07/25 07/08/25 07/09/25
06:59 06:59 06:59
Intake Total 1180 / 1180 960 / 960
Output Total 100 / 100
Balance 1080 / 1080 960 / 960
[2025-07-08 12:27] VITALS: BP 132/75; PULSE 80; O2SAT 91
--- NOTE | 2025-07-08 13:26 | CM ---
Per Attending patient is stable for discharge to [facility]
Left a voice mail with Juan Manuel in Admissions to contact case management Wednesday with bed availability status
[2025-07-08 15:15] VITALS: BP 134/78
[2025-07-08] MEDS: MORPHINE SULFATE 2 MG IV (15:31)
[2025-07-08] MEDS: DULCOLAX 10 MG RECTAL (16:57)
[2025-07-08] MEDS: MELATONIN 6 MG PO (20:56)
[2025-07-08 23:06] VITALS: BP 132/78
[2025-07-09] MEDS: TYLENOL 650 MG PO ×3 (05:12→17:19)
[2025-07-09 06:00] VITALS: BMI 28.3
[2025-07-09 07:01] LABS: Hematocrit 38.5 % (39.0-52.0); Hemoglobin 12.7 g/dL (13.0-18.0); Mean Corp Hgb Conc. 33.0 g/dL (33.0-37.0); Mean Corpuscular Volume 91.4 fL (80.0-94.0); Nucleated Red Blood Cells % 0 % (-); Platelet Count 204 10^3/uL (130-400); Red Cell Dist. Width 13.6 % (11.5-14.5)
[2025-07-09] MEDS: DUONEB 3 ML INH (07:18)
[2025-07-09 07:35] VITALS: BP 129/73
[2025-07-09] MEDS: IMDUR (EXTENDED RELEASE) 30 MG PO (08:32)
[2025-07-09] MEDS: LIPITOR 20 MG PO (08:33)
[2025-07-09] MEDS: TOPROL XL 12.5 MG PO (08:33)
[2025-07-09] MEDS: ELIQUIS 5 MG PO (08:33)
[2025-07-09] MEDS: DELTASONE 30 MG PO (08:33)
[2025-07-09] MEDS: SENOKOT-S 1 TABLET PO (08:34)
[2025-07-09] MEDS: NEURONTIN 200 MG PO ×2 (08:34→17:20)
[2025-07-09] MEDS: NORVASC 2.5 MG PO (08:34)
[2025-07-09] MEDS: ZOLOFT 25 MG PO (08:34)
[2025-07-09] MEDS: THERAGRAN 1 TABLET PO (08:34)
[2025-07-09] MEDS: MIRALAX PO (08:37)
[2025-07-09] MEDS: DESENEX/MITRAZOL/ZEASORB 1 APPLIC TOPICAL (08:37)
--- NOTE | 2025-07-09 08:39 | W.PN.HOSP.TC ---
Addendum entered and electronically signed by Guererro Edmonds MD 07/09/25 13:19:
dont use billing under this PN, use discharge summary billing instead
Original Note:
Today's Communication/Plan
-
minimal decrease in Hgb with no significant bruising, swelling or bleeding through dressing in R hip
medcially stable for SNF - CM informed
Assessment / Plan
Assessment / Plan
89yo M with PMHx of HFpEF, chronic hypoxic respiratory failure on 3L home O2 2/2 COPD, Hx of VTE, HTN, CAD s/p PCI, dementia, SSS s/p PPM, HLD, gastric spasm, BPH, dilated ascending thoracic aorta, neuropathy fell w/o LOC and found impacted and
displaced right femoral neck fracture. S/P R hip hemiarthroplasty on 07/06/25 after Eliquis washout as per ortho, now recoverign and pending SNF
A/P:
#Mechanical fall with right hip fracture
Status post right hip hemiarthroplasty by Dr. Graves
PT/OT
Pain control. Bowel regimen.
Per orthopedic okay to restart anticoagulation.
Jennifer can be removed at 2 weeks postop. If removed at SNF, follow up outpatient in 4 weeks. If jennifer not removed at SNF, follow up outpatient in 2 weeks
#Fever on 07/04/25
flu negative. Procal negative.
ua neg. Blood culture in lab remains negative.
wbc normal. no further episode of fevers. No indication for Abx
#chronic hypoxic respiratory failure 3 L
#Acute mild COPD exacerbation
Continue nebulizer treatment
can stop further IV steroids. quick po prednisone taper.
Remains at baseline oxygen of 3 L.
#Chronic heart failure history preserved EF
#Extensive bilateral PE November 2024
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
#HTN�benign
#CAD s/p stent
#Dementia�mild/mod
#SSS s/p PPM
#HLD
#Chronic Neuropathy
#Gastric Muscle spasms
#BPH
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
Patient oriented to name, place, knows he lives at a [facility] with roommates, president, year
Bladder scan protocol
cont home meds
Cardio provided optimization periOP. COnt to follow with established edge [facility] in [facility]
DVT ppx ELiquis
Full code
I have spent at least 37min reviewing chart, test results, communication with consultants and providing direct patient care
Anticipated Discharge: Within 24 hours
Subjective/Interval History
-
Date of Service: July 09, 2025
Objective Data
-
Labs:
Laboratory Results
07/09/25
05:54
WBC 10.3
Hgb 12.7 L
Hct 38.5 L
Plt Count 204
Vital Signs:
Vital Signs
Temp Pulse Resp BP Pulse Ox
98.8 F 74 24 129/73 91
07/09/25 07:35 07/09/25 07:35 07/09/25 07:35 07/09/25 07:35 07/09/25 07:35
I&O
07/08/25 07/09/25 07/10/25
06:59 06:59 06:59
Intake Total 960 / 960
Balance 960 / 960
Review of Systems
-
History Source: Patient
All other systems: Reviewed and negative
Musculoskeletal: Reports Other (R hip pain)
Physical Exam
-
General: No Apparent Distress
HEENT: Normocephalic
Respiratory: Clear to Auscultation
Cardiac: Regular Rhythm
GI: Soft, Nontender and Nondistended
Musculoskeletal: No Clubbing, No Cyanosis and No Edema
Neuro: Awake, Alert and Oriented
Psych: Calm
--- NOTE | 2025-07-09 09:55 | CM ---
Reviewed the chart notes and spoke with the patient at the bedside. IMM reviewed. Patient is a residential resident of [facility]. CM spoke with [facility] admissions liaison. Attempted to reach patient's son, patient has not been at that motel for
over 2 years per front end loader driver. CM continues to be available to patient/family and is monitoring medical plan for needs at discharge.
Plan: Discharge back to [facility] when medically stable.
Call report to: [phone]
Fax report to: [phone]
Medical and necessity forms on chart.
--- NOTE | 2025-07-09 13:18 | W.DCSUMMARY ---
Discharge Summary
Discharge Data
Date of Admission: 07/03/25
Date of Discharge: 07/09/25
-
Pending Results: No
Hospital Course
89yo M with PMHx of HFpEF, chronic hypoxic respiratory failure on 3L home O2 2/2 COPD, Hx of VTE, HTN, CAD s/p PCI, dementia, SSS s/p PPM, HLD, gastric spasm, BPH, dilated ascending thoracic aorta, neuropathy fell w/o LOC and found impacted and
displaced right femoral neck fracture. S/P R hip hemiarthroplasty on 07/06/25 after Eliquis washout as per ortho, now recoverign and pending SNF
I have spent at least 37min reviewing chart, test results, communication with consultants and providing direct patient care
Patient was managed for:
#Mechanical fall with right hip fracture
#Fever on 07/04/25
#chronic hypoxic respiratory failure 3 L
#Acute mild COPD exacerbation
#Chronic heart failure history preserved EF
#Extensive bilateral PE November 2024
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
#HTN�benign
#CAD s/p stent
#Dementia�mild/mod
#SSS s/p PPM
#HLD
#Chronic Neuropathy
#Gastric Muscle spasms
#BPH
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
Discharge Plan
-
Patient Disposition: Snf/SNF
Discharge Diagnosis/Procedures: R hip Fx
Diet: Low Sodium
Activity: As tolerated
Activity Restrictions/Additional Instructions:
Jennifer can be removed at 2 weeks postop. If removed at SNF, follow up outpatient in 4 weeks. If jennifer not removed at SNF, follow up outpatient in 2 weeks
Referrals:
Frederick Brown MD [Family Provider]
Matt Graves MD [Active, Orthopedics] - in two weeks
Referral Note: [place] can be removed at 2 weeks postop. If removed at SNF, follow up outpatient in 4 weeks. If jennifer not removed at SNF, follow up outpatient in 2 weeks
Prescriptions:
New
prednisone 10 mg tablet
10 mg PO DIRECTED Qty: 18 0RF
Rx Instructions:
take 30mg x3 days then 20mg x3 days, then 10mg for 3 days and stop
Continued
acetaminophen 325 mg Tablet
650 mg PO Q8HPRN PRN (Reason: mild pain)
atorvastatin 20 mg Tablet
20 mg PO DAILY
isosorbide mononitrate 30 mg Tablet Extended Release 24 Hr
30 mg PO DAILY
amlodipine 2.5 mg Tablet
2.5 mg PO DAILY
albuterol sulfate [ProAir HFA] 90 mcg/actuation Hfa Aerosol Inhaler
2 puff INHALATION R Q4
umeclidinium-vilanterol [Anoro Ellipta] 62.5-25 mcg/actuation Blister With Device
1 inh INHALATION R DAILY
gabapentin 100 mg Capsule
200 mg PO TID
melatonin 3 mg Tablet
6 mg PO HS
multivitamin Tablet
1 tab PO DAILY
ipratropium-albuterol 0.5 mg-3 mg(2.5 mg base)/3 mL Solution For Nebulization
3 ml INHALATION R Q6HPRN PRN (Reason: copd)
sertraline 25 mg Tablet
25 mg PO DAILY
ondansetron HCl 4 mg Tablet
4 mg PO Q6H PRN (Reason: NAUSEA )
dicyclomine 20 mg tablet
20 mg PO TID
diclofenac sodium 1 % Gel
2 g TOPICAL BID
omega 0-iet-lwg-fish oil [Fish Oil] 1,000 mg (120 mg-180 mg) Capsule
1 cap PO DAILY
metoprolol succinate 25 mg Tablet Extended Release 24 Hr
12.5 mg PO BID Qty: 60 0RF
Eliquis 5 mg tablet
5 mg PO BID Qty: 60 0RF
Rx Instructions:
start 12/30/24, continue indefinitely
tramadol 50 mg tablet
50 mg PO BIDPRN PRN (Reason: moderate severe pain) Qty: 5 0RF
Discontinued
Eliquis 5 mg Tablet
10 mg PO BID 4 Days Qty: 16 0RF
prednisone 10 mg Tablet
See Rx Instructions .ROUTE .COMPLEX Qty: 10 0RF
Rx Instructions:
Take By Mouth:
20 mg daily x1 day, 10 mg daily x2 days.
Discharge Date and Time
Print Language: ARABIC
[2025-07-09] MEDS: ULTRAM 50 MG PO (13:20)
[2025-07-09] MEDS: DUONEB INH (13:50)
[2025-07-09 15:34] VITALS: BP 102/61
== END 2025-07-09 18:30 | DRG 521 ==
LOC: 2 SOUTH 16:51
PROVIDERS: Clinical Nurse Specialist Family Health; Hospitalist; Nurse Practitioner; Nurse Practitioner Family; Student in an Organized Health Care Education/Training Program; ADMITTING PHYSICIAN Hospitalist; ATTENDING PHYSICIAN Internal Medicine; CONSULT PHYSICIAN Internal Medicine Cardiovascular Disease; CONSULT PHYSICIAN Specialist; EMERGENCY PHYSICIAN Emergency Medicine; FAMILY PHYSICIAN Internal Medicine
PROC: 0SRR0J9 Replacement of Right Hip Joint, Femoral Surface with Synthetic Substitute, Cemented, Open Approach (ICD-10-PCS; 2025-07-06)
DX: S72.011A Unspecified intracapsular fracture of right femur, initial encounter for closed fracture (principal); J96.21 Acute and chronic respiratory failure with hypoxia; J44.1 Chronic obstructive pulmonary disease with (acute) exacerbation; I50.32 Chronic diastolic (congestive) heart failure; F03.A18 Unspecified dementia, mild, with other behavioral disturbance; F03.A3 Unspecified dementia, mild, with mood disturbance; F03.A4 Unspecified dementia, mild, with anxiety; Z11.52 Encounter for screening for COVID-19; W18.30XA Fall on same level, unspecified, initial encounter; Z86.711 Personal history of pulmonary embolism; Z86.718 Personal history of other venous thrombosis and embolism; I11.0 Hypertensive heart disease with heart failure; I25.10 Atherosclerotic heart disease of native coronary artery without angina pectoris; Z95.5 Presence of coronary angioplasty implant and graft; G47.00 Insomnia, unspecified; Z95.0 Presence of cardiac pacemaker; I49.5 Sick sinus syndrome; E78.00 Pure hypercholesterolemia, unspecified; G62.9 Polyneuropathy, unspecified; N40.0 Benign prostatic hyperplasia without lower urinary tract symptoms; Z79.899 Other long term (current) drug therapy; Z79.01 Long term (current) use of anticoagulants; K76.0 Fatty (change of) liver, not elsewhere classified; F32.A Depression, unspecified; I25.2 Old myocardial infarction; Z87.891 Personal history of nicotine dependence; Z96.642 Presence of left artificial hip joint; Z99.81 Dependence on supplemental oxygen
CPT/HCPCS: 70450; 71045; 72125; 72170; 73502; 80048; 80053; 81003; 81015; 83880; 84132; 84145; 85025; 85027; 85730; 86850; 86900; 86901; 87040; 87070; 87502; 87811; 93005; 94640; 96374; 97116; 97163; 97167; 97535; 99285; C1713; C1776